=== PATIENT | male | born 1980 | race Two or more races ===

== ENCOUNTER 2017-04-15 22:56 | Emergency (ER) | payer MEDICAID ==
[2017-04-15 23:20] VITALS: BP 145/89
--- NOTE | 2017-04-15 23:39 | EDM.PDOC ---
[id number] Complaint: LEFT LEG CELLULITIS / ON ANTIBIOTICS Time Seen by Provider: 04/15/17 23:33 Source of Information: Reports: Patient History Limitations: Reports: No Limitations - History of Present Illness INITIAL COMMENTS - FREE TEXT/NARRATIVE: pt was seen at urgent care yesterday and he was placed on sulfa. Pt is concernd because he is not better. Onset: Gradual Duration: Day(s):, Getting Worse Location: Reports: Lower Extremity, Left Associated Symptoms: Reports: Fever/Chills, Other ( increased pain in the groin. ) Left Groin Pain Score (Numeric/FACES): 7 - Related Data Allergies Allergy/AdvReac Type Severity Reaction Status Date / Time No Known Allergies Allergy Verified 05/07/14 21:00 Home Meds: Home Meds Albuterol Sulfate [Albuterol Sulfate HFA] 1 - 2 puff IH Q4H PRN 05/07/14 [ History] Omeprazole [Prilosec] 20 mg PO DAILY 05/07/14 [History] Sulfamethoxazole/Trimethoprim [Sulfamethoxazole-Tmp Ds Tablet] 1 tab PO BID [History] Past Medical History HEENT History: Reports: Other (See Below) Other HEENT History: hx ear infections Respiratory History: Reports: Asthma Gastrointestinal History: Reports: GERD Psychiatric History: Reports: Anxiety Dermatologic History: Reports: Cellulitis - Past Surgical History GI Surgical History: Reports: None Social & Family History - Tobacco Use Smoking Status *Q: Never Smoker Years of Tobacco use: 20 - Caffeine Use Caffeine Use: Reports: Soda - Alcohol Use Days Per Week of Alcohol Use: 0 - Recreational Drug Use Recreational Drug Use: No Drug Use in Last 12 Months: No Recreational Drug Type: Reports: Marijuana/Hashish Recreational Drug Use Frequency: Not Used In Over 1 Year Review of Systems - Review of Systems Review Of Systems: See Below Constitutional: Reports: Fever Eyes: Reports: No Symptoms Ears: Reports: No Symptoms Nose: Reports: No Symptoms Mouth/Throat: Reports: No Symptoms Respiratory: Reports: No Symptoms Cardiovascular: Reports: No Symptoms GI/Abdominal: Reports: No Symptoms Genitourinary: Reports: No Symptoms Musculoskeletal: Reports: Other ( Pt has a abcess in the left groin. ) ED EXAM, GENERAL - Physical Exam Exam: See Below Free Text/Narrative:: pt was seen yesterday and placed on sulfa. He notes today that the area is larger and it is more uncomfortable. Exam Limited By: No Limitations General Appearance: Alert, Anxious Eye Exam: Right Eye: Papilledema Ears: Normal TMs Nose: Nasal Deformity Throat/Mouth: Normal Inspection Head: Atraumatic Neck: Normal Inspection Respiratory/Chest: No Respiratory Distress Cardiovascular: Regular Rate, Rhythm GI/Abdominal: Soft, Non-Tender (Male) Exam: Deferred Extremities: Other (pt has a large red area which is indurated and firm in the center. He is not improving and he is now running a fever. He feels the redness has spread alot. ) Neurological: Alert, Oriented Course - Vital Signs Last Recorded V/S: Last Vital Signs Temp 37.9 C 04/15/17 23:17 Pulse 88 04/15/17 23:17 Resp 18 04/15/17 23:17 BP 145/89 H 04/15/17 23:17 Pulse Ox 96 04/15/17 23:17 - Orders/Labs/Meds Orders: Active Orders 24 hr Category Date Time Status Saline Lock Insert [OM.PC] Routine Oth 04/15/17 23:51 Ordered Meds: Medications Discontinued Medications Generic Name Dose Route Start Last Admin Trade Name Freq PRN Reason Stop Dose Admin Hydrocodone Bitart/Acetaminophen 1 tab 04/15/17 23:50 04/16/17 00:13 [place] 325-5 Mg PO 04/15/17 23:51 1 tab ONETIME ONE Administration Ceftriaxone Sodium 1 gm/ 50 mls @ 100 mls/hr 04/15/17 23:50 04/16/17 00:12 Sodium Chloride IV 04/16/17 00:19 100 mls/hr ONETIME ONE Administration Sodium Chloride 10 ml 04/15/17 23:51 04/16/17 00:13 Saline Flush FLUSH 10 ml ASDIRECTED PRN Administration Keep Vein Open - Re-Assessments/Exams Free Text/Narrative Re-Assessment/Exam: 04/15/17 23:49 pt was given rocepen 1 gm iv. and norco 5/325 po. Departure - Departure Time of Disposition: 23:20 Disposition: Home, Self-Care 01 Condition: Fair Clinical Impression: Groin abscess - Discharge Information Instructions: Cellulitis, Adult Referrals: PCP,None [Primary Care Provider] - Forms: ED Department Discharge Care Plan Goals: tub soak or moist warm packs to the site., cont sulfa, Npo after midnight. rtc at 7 thirty tomorrow for I and D of the abcess. paradise # 4 - My Orders Last 24 Hours: My Active Orders 04/15/17 23:51 Saline Lock Insert [OM.PC] Routine - Assessment/Plan Last 24 Hours: My Active Orders 04/15/17 23:51 Saline Lock Insert [OM.PC] Routine
[2017-04-15] MEDS ORDERED: cefTRIAXone 1 GM in Sodium Chloride 0.9% 50 ML IV ONE (23:50)
[2017-04-15] MEDS ORDERED: Acetaminophen/HYDROcodone 325-5 MG Tab PO ONE (23:50)
[2017-04-15] MEDS ORDERED: Sodium Chloride 0.9% 10 ML Syringe FLUSH PRN (23:51)
== END 2017-04-16 00:44 | disposition home or self-care (01) ==
LOC: JP.ED 22:56
DX: L02.214 Cutaneous abscess of groin (principal); J45.909 Unspecified asthma, uncomplicated; K21.9 Gastro-esophageal reflux disease without esophagitis; F41.9 Anxiety disorder, unspecified; Z79.899 Other long term (current) drug therapy; L73.2 Hidradenitis suppurativa
CPT/HCPCS: 10061; 87070; 87075; 87077; 87186; 87205; 96365; 99283; A9270; J0696; J2250; J2704; J3010; J7030; J7050; J7120; S0077

== ENCOUNTER → 2017-04-16 | Day surgery (SDC) | payer MEDICAID ==
[~2017-04-16] MED LIST: Bupivacaine 0.5% 50 ML MDV ONE; Clindamycin Phosphate 900 MG in Sodium Chloride 0.9% 100 ML IV ONE; Lactated Ringers 1,000 ML ONE; Lidocaine 1% with EPINEPHrine 1:100,000 50 ML MDV ONE; Midazolam 1 MG/ML 2 ML SDV ONE; Propofol 200 MG/20 ML SDV ONE; fentaNYL 100 MCG/2 ML SDV ONE
[2017-04-16 10:34] VITALS: BP 119/77
--- NOTE | 2017-04-18 07:50 | OR ---
DATE OF PROCEDURE: 04/16/2017 PREOPERATIVE DIAGNOSIS: Left groin abscess x2, secondary to hidradenitis suppurativa. POSTOPERATIVE DIAGNOSIS: Left groin abscess x2, secondary to hidradenitis suppurativa. PROCEDURE: Incision and drainage of 2 left groin abscesses. SURGEON: Naresh Zamorano MD ANESTHESIA: IV anesthesia with monitored anesthesia care. INDICATION: This 36-year-old male has developed cellulitis in his left groin. He was seen in the clinic a few days ago. He was started on antibiotics. He came into the emergency room very late last night and saw Dr. Babin, who noted masses in the left groin consistent with abscesses and referred him to me this morning for incision and drainage of these. I counseled him for incision and drainage of 2 left groin abscesses, which were fairly deep, including risks and alternatives, and he gave his informed consent to proceed. DESCRIPTION OF PROCEDURE: After adequate IV anesthesia was obtained, the patient was placed in a frog-leg position. His left upper medial thigh and groin were prepped and draped in the usual sterile fashion. This was all consistent with hidradenitis suppurativa. A time-out was held. Lidocaine 1% with epinephrine in a 50:50 mix with 0.5% Marcaine was infiltrated about the 2 indurated areas consistent with abscesses. The larger one was opened first. We obtained purulent material, which was sent for Gram stain and culture. An elliptical incision was made at this point. The incision was cleaned. The more anterior one was then opened. We did not encounter any purulent material. This area was clean. They were both irrigated with saline and then packed with iodoform gauze. A sterile dressing was applied. He tolerated the procedure well and was brought from the operating room in good condition. Naresh Zamorano MD /[id number] [facility]
== END ==
LOC: JP.SDS 06:53
PROVIDERS: ATTEND Surgery
DX: L02.214 Cutaneous abscess of groin (principal); L73.2 Hidradenitis suppurativa
CPT/HCPCS: 10061; 87070; 87075; 87205; J2250; J2704; J3010; J7030; J7120; 87077; 87186; S0077

== ENCOUNTER 2017-05-20 00:09 | Emergency (ER) | payer MEDICAID ==
[2017-05-20] MEDS ORDERED: Sodium Chloride 0.9% 10 ML Syringe FLUSH PRN (00:48)
[2017-05-20] MEDS ORDERED: HYDROmorphone 1 MG/ML Syringe IVPUSH ONE (00:48)
[2017-05-20] MEDS ORDERED: Sodium Chloride 0.9% 1,000 ML IV STA (00:48)
[2017-05-20] MEDS ORDERED: Ondansetron 4 MG/2 ML SDV IVPUSH ONE (00:48)
--- NOTE | 2017-05-20 00:52 | EDM.PDOC ---
ED HPI GENERAL MEDICAL PROBLEM - General Chief Complaint: Abdominal Pain Stated Complaint: CHEST PAIN Time Seen by Provider: 05/20/17 00:43 Source of Information: Reports: Patient, RN Notes Reviewed History Limitations: Reports: No Limitations - History of Present Illness INITIAL COMMENTS - FREE TEXT/NARRATIVE: 36-year-old gentleman presents emergency department today with sudden onset of right upper quadrant abdominal pain, he states he was asleep the pain awoke him up suddenly about an hour prior any sharp stabbing in nature, no nausea no fevers no history of abdominal surgeries Upper Abdomen Pain Score (Numeric/FACES): 8 - Related Data Allergies Allergy/AdvReac Type Severity Reaction Status Date / Time No Known Allergies Allergy Verified 05/20/17 00:18 Home Meds: Home Meds Albuterol Sulfate [Albuterol Sulfate HFA] 1 - 2 puff IH Q4H PRN 05/07/14 [ History] Omeprazole [Prilosec] 20 mg PO DAILY 05/07/14 [History] Past Medical History HEENT History: Reports: Other (See Below) Other HEENT History: hx ear infections Respiratory History: Reports: Asthma Gastrointestinal History: Reports: GERD Musculoskeletal History: Reports: Fracture Other Musculoskeletal History: r wrist fx Psychiatric History: Reports: Anxiety Dermatologic History: Reports: Cellulitis - Infectious Disease History Infectious Disease History: Reports: C-Difficile - Past Surgical History GI Surgical History: Reports: None Social & Family History - Tobacco Use Smoking Status *Q: Former Smoker Years of Tobacco use: 21 Packs/Tins Daily: 1 Used Tobacco, but Quit: Yes Month Tobacco Last Used: February Second Hand Smoke Exposure: No - Caffeine Use Caffeine Use: Reports: Soda - Alcohol Use Days Per Week of Alcohol Use: 0 - Recreational Drug Use Recreational Drug Use: No Drug Use in Last 12 Months: No Recreational Drug Type: Reports: Marijuana/Hashish Recreational Drug Use Frequency: Not Used In Over 1 Year ED ROS GENERAL - Review of Systems Review Of Systems: See Below Constitutional: Denies: Fever, Chills HEENT: Reports: No Symptoms Respiratory: Reports: No Symptoms Cardiovascular: Reports: No Symptoms GI/Abdominal: Reports: Abdominal Pain, Flatus. Denies: Nausea, Vomiting : Reports: No Symptoms Musculoskeletal: Reports: No Symptoms Skin: Reports: No Symptoms Neurological: Reports: No Symptoms ED EXAM, GI/ABD - Physical Exam Exam: See Below Exam Limited By: No Limitations General Appearance: Alert, Mild Distress Eyes: Bilateral: Normal Appearance Head: Atraumatic, Normocephalic Neck: Normal Inspection, Supple, Non-Tender, Full Range of Motion Respiratory/Chest: No Respiratory Distress, Lungs Clear, Normal Breath Sounds, No Accessory Muscle Use Cardiovascular: Regular Rate, Rhythm, No Murmur GI/Abdominal Exam: Soft, Tender (Right upper quadrant). No: Guarding, Rigid, Rebound Extremities: Normal Inspection, No Pedal Edema Neurological: Alert, Oriented, CN II-XII Intact, Normal Cognition Course - Vital Signs Last Recorded V/S: Last Vital Signs Temp 98.5 F 05/20/17 00:26 Pulse 83 05/20/17 00:26 Resp 20 05/20/17 00:26 BP 146/100 H 05/20/17 00:26 Pulse Ox 97 05/20/17 00:26 - Orders/Labs/Meds Orders: Active Orders 24 hr Category Date Time Status Peripheral IV Care [RC] . DIRECTED Care 05/20/17 00:49 Active Abdomen Pelvis w Cont [CT] Urgent Exams 05/20/17 00:48 Taken Sodium Chloride 0.9% [Normal Saline] 1,000 ml Med 05/20/17 00:48 Active IV .BOLUS Sodium Chloride 0.9% [Saline Flush] Med 05/20/17 00:48 Active 10 ml FLUSH ASDIRECTED PRN ED Antiemetic Medication Reflex [OM.PC] Click to Edit Oth 05/20/17 00:48 Ordered ED Pain Medications Reflex [OM.PC] Click to Edit Oth 05/20/17 00:48 Ordered Peripheral IV Insertion Adult [OM.PC] Urgent Oth 05/20/17 00:48 Ordered Medication Orders Sodium Chloride (Normal Saline) 1,000 mls @ 500 mls/hr IV .BOLUS STA Stop: 05/20/17 02:47 Last Admin: 05/20/17 00:59 Dose: 500 mls/hr Sodium Chloride (Saline Flush) 10 ml FLUSH ASDIRECTED PRN PRN Reason: Keep Vein Open Last Admin: 05/20/17 01:04 Dose: 10 ml Labs: Laboratory Tests 05/20/17 05/20/17 Range/Units 00:58 00:58 WBC 7.8 (4.5-11.0) K/uL RBC 5.57 (4.30-5.90) M/uL Hgb 16.2 H (12.0-15.0) g/dL Hct 45.9 (40.0-54.0) % MCV 82 (80-98) fL MCH 29 (27-31) pg MCHC 35 (32-36) % Plt Count 241 (150-400) K/uL Neut % (Auto) 50 (36-66) % Lymph % (Auto) 34 (24-44) % Nuckolls % (Auto) 10 H (2-6) % Eos % (Auto) 5 H (2-4) % Baso % (Auto) 1 (0-1) % Sodium 140 (140-148) mmol/L Potassium 4.0 (3.6-5.2) mmol/L Chloride 104 (100-108) mmol/L Carbon Dioxide 26 (21-32) mmol/L Anion Gap 10.5 (5.0-14.0) mmol/L BUN 19 H (7-18) mg/dL Creatinine 0.9 (0.8-1.3) mg/dL Est Cr Clr Drug Dosing 114.56 mL/min Estimated GFR (MDRD) > 60 (>60) Glucose 113 H (74-106) mg/dL Calcium 9.4 (8.5-10.1) mg/dL Total Bilirubin 0.4 (0.2-1.0) mg/dL AST 21 (15-37) U/L ALT 39 (12-78) U/L Alkaline Phosphatase 106 (46-116) U/L Troponin I < 0.017 (0.000-0.056) ng/mL Total Protein 8.6 H (6.4-8.2) g/dL Albumin 4.0 (3.4-5.0) g/dL Globulin 4.6 H (2.3-3.5) g/dL Albumin/Globulin Ratio 0.9 L (1.2-2.2) Lipase 146 (73-393) U/L Meds: Medications Generic Name Dose Route Start Last Admin Trade Name Freq PRN Reason Stop Dose Admin Sodium Chloride 1,000 mls @ 500 mls/hr 05/20/17 00:48 05/20/17 00:59 Normal Saline IV 05/20/17 02:47 500 mls/hr .BOLUS STA Administration Sodium Chloride 10 ml 05/20/17 00:48 05/20/17 01:04 Saline Flush FLUSH 10 ml ASDIRECTED PRN Administration Keep Vein Open Discontinued Medications Generic Name Dose Route Start Last Admin Trade Name Phillipq PRN Reason Stop Dose Admin Hydromorphone HCl 1 mg 05/20/17 00:48 05/20/17 01:02 Dilaudid IVPUSH 05/20/17 00:49 1 mg .ONETIME ONE Administration Sodium Chloride 85 mls @ 4.5 mls/sec 05/20/17 00:59 05/20/17 01:28 Normal Saline IV 05/20/17 01:00 4.5 mls/sec ASDIRECTED STA Administration Iopamidol 150 ml 05/20/17 00:59 05/20/17 01:28 Isovue-300 (61%) IV 05/20/17 01:00 150 ml . DIRECTED STA Administration Ondansetron HCl 4 mg 05/20/17 00:48 05/20/17 01:01 Zofran IVPUSH 05/20/17 00:49 4 mg ONETIME ONE Administration Departure - Departure Time of Disposition: 02:37 Disposition: Home, Self-Care 01 Condition: Good Clinical Impression: Cholelithiasis Qualifiers: Cholelithiasis location: gallbladder Cholecystitis presence: without cholecystitis Biliary obstruction: without biliary obstruction Qualified Code(s) : K80.20 - Calculus of gallbladder without cholecystitis without obstruction - Discharge Information Referrals: PCP,None [Primary Care Provider] - Forms: ED Department Discharge Additional Instructions: Try and avoid fatty foods and stick to a bland diet, use hydrocodone as needed for pain control, please call the clinic on Tuesday for an appointment with Dr. Diaz - My Orders Last 24 Hours: My Active Orders 05/20/17 00:48 Abdomen Pelvis w Cont [CT] Urgent Sodium Chloride 0.9% [Normal Saline] 1,000 ml IV .BOLUS Sodium Chloride 0.9% [Saline Flush] 10 ml FLUSH ASDIRECTED PRN ED Antiemetic Medication Reflex [OM.PC] Click to Edit ED Pain Medications Reflex [OM.PC] Click to Edit Peripheral IV Insertion Adult [OM.PC] Urgent 05/20/17 00:49 Peripheral IV Care [RC] . DIRECTED - Assessment/Plan Last 24 Hours: My Active Orders 05/20/17 00:48 Abdomen Pelvis w Cont [CT] Urgent Sodium Chloride 0.9% [Normal Saline] 1,000 ml IV .BOLUS Sodium Chloride 0.9% [Saline Flush] 10 ml FLUSH ASDIRECTED PRN ED Antiemetic Medication Reflex [OM.PC] Click to Edit ED Pain Medications Reflex [OM.PC] Click to Edit Peripheral IV Insertion Adult [OM.PC] Urgent 05/20/17 00:49 Peripheral IV Care [RC] . DIRECTED Plan: Assessment Acuity = acute Site and laterality = cholelithiasis Etiology = unclear etiology Manifestations = abdominal pain Location of injury = Home Lab values = CBC and CMP unremarkable CT scan shows multiple stones in the gallbladder no cholecystitis noted Plan I reviewed lab work and CT scan results with him he had good improvement with 1 mg Dilaudid he'll be discharged home with hydrocodone for pain control he is going to follow-up with general surgery on Tuesday Patient was in agreement with the plan all questions were answered, they were instructed to return to the emergency department or call for worsening symptoms. This note was dictated using [employer] voice recognition software please call with any questions.
[2017-05-20] MEDS: Iopamidol 612 MG/ML 150 ML Bottle IV STA (01:28)
[2017-05-20 02:53] VITALS: BP 144/102
== END 2017-05-20 02:53 | disposition home or self-care (01) ==
LOC: JP.ED 00:09
DX: K80.20 Calculus of gallbladder without cholecystitis without obstruction (principal); J45.909 Unspecified asthma, uncomplicated; K21.9 Gastro-esophageal reflux disease without esophagitis; F41.9 Anxiety disorder, unspecified; Z79.899 Other long term (current) drug therapy; Z87.891 Personal history of nicotine dependence
CPT/HCPCS: 36415; 74177; 80053; 83690; 84484; 85025; 96361; 96374; 96375; 99284; J1170; J2405; J7030; J7040; J7050

== ENCOUNTER 2017-06-03 09:00 | Day surgery (SDC) | payer MEDICAID ==
[~2017-06-03 09:00] MED LIST changes: -Clindamycin Phosphate 900 MG in Sodium Chloride 0.9% 100 ML IV ONE; -Lactated Ringers 1,000 ML ONE; -Midazolam 1 MG/ML 2 ML SDV ONE; -Propofol 200 MG/20 ML SDV ONE; -fentaNYL 100 MCG/2 ML SDV ONE
[2017-06-03] MEDS ORDERED: Rocuronium 50 MG/5 ML Vial ONE (09:30)
[2017-06-03] MEDS ORDERED: Propofol 200 MG/20 ML SDV ONE (09:30)
[2017-06-03] MEDS ORDERED: Glycopyrrolate 0.2 MG/ML 5 ML MDV ONE (09:30)
[2017-06-03] MEDS ORDERED: Dexamethasone 4 MG/ML SDV ONE (09:30)
[2017-06-03] MEDS ORDERED: Succinylcholine 200 MG/10 ML MDV ONE (09:30)
[2017-06-03] MEDS ORDERED: Ondansetron 4 MG/2 ML SDV ONE (09:30)
[2017-06-03] MEDS ORDERED: Neostigmine Methylsulfate 1 MG/ML 5 ML Syringe ONE (09:30)
[2017-06-03] MEDS ORDERED: Sodium Chloride 0.9% 1,000 ML IV SCH (09:45)
[2017-06-03] MEDS ORDERED: ceFAZolin 2 GM in Sodium Chloride 0.9% 100 ML IV ONE (10:45)
[2017-06-03] MEDS ORDERED: metroNIDAZOLE/Normal Saline 500 MG in Premix Bag 1 BAG IV ONE (10:45)
[2017-06-03] MEDS: ceFAZolin 2 GM in Sodium Chloride 0.9% 50 ML IV ONE ×2 (11:15→13:11)
[2017-06-03] MEDS ORDERED: Lidocaine 1% 50 ML MDV ONE (11:30)
[2017-06-03] MEDS ORDERED: Lidocaine 1% with EPINEPHrine 1:100,000 50 ML MDV ONE (11:34)
[2017-06-03] MEDS ORDERED: diphenhydrAMINE 50 MG/ML SDV IVPUSH PRN (12:16)
[2017-06-03] MEDS ORDERED: Zolpidem 5 MG Tab PO PRN (12:16)
[2017-06-03] MEDS ORDERED: Benzocaine/Cetylpyridinium/Menthol Lozenge MUCMEM PRN (12:16)
[2017-06-03] MEDS ORDERED: Docusate Sodium 100 MG Cap PO PRN (12:16)
[2017-06-03] MEDS ORDERED: Promethazine 25 MG/ML SDV IM PRN (12:16)
[2017-06-03] MEDS ORDERED: hydrOXYzine HCl 100 MG/2 ML SDV IM PRN (12:16)
[2017-06-03] MEDS ORDERED: Bisacodyl 5 MG Tab PO PRN (12:16)
[2017-06-03] MEDS ORDERED: Ketorolac 60 MG/2 ML SDV ONE (12:20)
[2017-06-03] MEDS ORDERED: Morphine 2 MG/ML Syringe IVPUSH PRN (12:21)
[2017-06-03] MEDS: Acetaminophen/oxyCODONE 325-10 MG Tab PO PRN ×3 (14:59→23:19)
[2017-06-04] MEDS ORDERED: Lidocaine 2% Jelly 10 ML Urojet MUCMEM ONE ×2 (02:12→10:00)
[2017-06-04] MEDS: Acetaminophen/oxyCODONE 325-10 MG Tab PO PRN ×2 (03:38→09:25)
[2017-06-04 07:31] VITALS: BP 142/88
[2017-06-04] MEDS ORDERED: Ondansetron 4 MG Tab.DIS PO PRN (09:20)
--- NOTE | 2017-06-06 09:11 | OR ---
DATE OF PROCEDURE: 06/03/2017 PROCEDURE: Laparoscopic cholecystectomy. PREOPERATIVE DIAGNOSIS: Cholelithiasis and cholecystitis. POSTOPERATIVE DIAGNOSIS: Cholelithiasis and cholecystitis. RISKS: Risks, benefits, alternatives including damage to infection bleeding and injury to common bile duct, cystic duct, small bowel, bladder, and other risks were explained, they understand and wished to proceed. PROCEDURE IN DETAIL: The patient was placed in supine position. A supraumbilical curvilinear incision was made. A Veress needle was used to enter the abdomen without abnormality. A drop test was performed without abnormality. This was followed by an Optiview trocar. No evidence of enterotomy or injury was noted during entry. Two additional 5 mm ports and a 10 mm port were entered under direct visualization. The gallbladder was retracted cephalad. The infundibulum was retracted inferolaterally. A "clear view" of the gallbladder was obtained with a single pulsatile structure in the gallbladder and a single nonpulsatile structure in the gallbladder. The cystic duct and respective artery were clipped x3 and subsequently transected. The gallbladder was removed without any difficulty. The bed was reinspected twice. No abnormal bleeding was noted. The wounds were thoroughly irrigated and closed with 3-0 Vicryl and 4-0 Vicryl interrupted running fashion. The patient tolerated the procedure well. Tomas Diaz MD /[id number]
== END 2017-06-04 10:18 | disposition home or self-care (01) ==
LOC: JP.SDS 09:00 → JP.2SS 12:16 → JP.SDS 06-04 10:18
PROVIDERS: ATTEND Surgery
DX: K80.10 Calculus of gallbladder with chronic cholecystitis without obstruction (principal); J45.909 Unspecified asthma, uncomplicated; J30.2 Other seasonal allergic rhinitis; Z87.891 Personal history of nicotine dependence
CPT/HCPCS: 36415; 47562; 80053; 85027; A9270; J0330; J0690; J1100; J1885; J2270; J2405; J2704; J2710; J3010; J3410; J7040; J7050; 88304

== ENCOUNTER 2017-07-08 06:53 | Day surgery (SDC) | payer MEDICAID ==
[2017-07-08] MEDS ORDERED: Lidocaine 1% with EPINEPHrine 1:100,000 50 ML MDV ONE (06:58)
[2017-07-08] MEDS ORDERED: Bupivacaine 0.5% 50 ML MDV ONE (06:58)
[2017-07-08] MEDS ORDERED: Propofol 200 MG/20 ML SDV ONE ×3 (07:01→08:58)
[2017-07-08] MEDS ORDERED: Midazolam 1 MG/ML 2 ML SDV ONE ×2 (07:01→08:34)
[2017-07-08] MEDS ORDERED: fentaNYL 100 MCG/2 ML SDV ONE (07:01)
[2017-07-08] MEDS ORDERED: ceFAZolin 2 GM in Sodium Chloride 0.9% 50 ML IV ONE (07:30)
[2017-07-08] MEDS ORDERED: Dextrose 5%-Lactated Ringers 1,000 ML IV SCH (07:30)
[2017-07-08] MEDS ORDERED: Acetaminophen/HYDROcodone 325-5 MG Tab PO ONE (09:55)
[2017-07-08] MEDS ORDERED: Ondansetron 4 MG Tab.DIS PO ONE (10:45)
[2017-07-08 11:16] VITALS: BP 136/93
--- NOTE | 2017-07-08 12:25 | OR ---
DATE OF PROCEDURE: 07/08/2017 PREOPERATIVE DIAGNOSIS: Reducible left inguinal hernia. POSTOPERATIVE DIAGNOSIS: Reducible indirect left inguinal hernia. PROCEDURE: Repair of reducible indirect left inguinal hernia with a Medium mesh plug and patch manufactured by [employer]. SURGEON: Naresh Zamorano MD. ANESTHESIA: IV anesthesia with monitored anesthesia care. INDICATION: This 37-year-old white male was referred for repair of a left inguinal hernia. He complained of left hip pain. With examination, he was found to have a hernia. He denied predisposing factors for hernia formation. No signs or symptoms of incarceration or obstruction. This is considered to be a fairly small hernia and it is reducible. I counseled him for repair of it with a mesh plug and patch including risks and alternatives , and he gave his informed consent to proceed. DESCRIPTION OF PROCEDURE: After adequate IV anesthesia was obtained, the patient's lower abdomen, groin, and genitalia were prepped and draped in the usual sterile fashion. Time-out was held. Lidocaine 1% with epinephrine in a 50:50 mix with 0.5% Marcaine was infiltrated about the left groin. A left groin incision was made 2 cm superior and medial to the inguinal ligament. This was carried deep using Bovie cautery to external oblique. The external oblique was opened parallel to the course of its fibers from the internal to the external ring. The spermatic cord was mobilized and a [place] drain was placed about it. The floor appeared to be intact. The cremasteric fibers were divided longitudinally to reveal an indirect hernia, and a cord lipoma. The cord lipoma was excised and discarded. The hernia defect was dissected free and repaired with a Medium Ventralex mesh plug and patch manufactured by [employer]. The plug was placed down through the defect, underneath the fascia, and anchored to the undersides of the fascia with horizontal mattress stitches of 2-0 Vicryl. The onlay patch was obtained, cut to appropriate length , and placed over the inguinal floor. It was anchored to itself around the spermatic cord with a horizontal mattress stitch of 2-0 Vicryl. The ilioinguinal nerve was divided. The external oblique was closed over the inguinal floor, spermatic cord and mesh with a running stitch of 2-0 Vicryl. Interrupted 3-0 Vicryl stitch were placed to approximate the Paul's fascia and 4-0 Vicryl using a subcuticular stitch was placed to approximate the skin. Dermabond was applied. The patient tolerated the procedure well and was brought to the recovery room in a good condition. Naresh Zamorano MD /[id number]
== END 2017-07-08 10:45 | disposition home or self-care (01) ==
LOC: JP.SDS 06:53
PROVIDERS: ATTEND Surgery
DX: K40.90 Unilateral inguinal hernia, without obstruction or gangrene, not specified as recurrent (principal); J45.909 Unspecified asthma, uncomplicated; Z87.891 Personal history of nicotine dependence; E66.9 Obesity, unspecified; Z68.25 Body mass index [BMI] 25.0-25.9, adult
CPT/HCPCS: 49505; A9270; C1781; J0690; J2250; J2704; J3010; J7042; J7050

== ENCOUNTER 2017-08-31 21:58 | Emergency (ER) | payer MEDICAID ==
[2017-08-31 22:08] VITALS: BP 141/93
[2017-08-31] MEDS ORDERED: Aluminum Hydroxide/Magnesium Hydroxide/Simethicone Susp 30 ML Cup PO ONE (22:45)
[2017-08-31] MEDS ORDERED: Ketorolac 60 MG/2 ML SDV IM ONE (22:45)
--- NOTE | 2017-08-31 23:17 | EDM.PDOC ---
ED HPI GENERAL MEDICAL PROBLEM - General Chief Complaint: Upper Extremity Injury/Pain Stated Complaint: R SHOULDER BLADE PAIN / ABDOMINAL PAIN Time Seen by Provider: 08/31/17 22:20 Source of Information: Reports: Patient History Limitations: Reports: No Limitations - History of Present Illness INITIAL COMMENTS - FREE TEXT/NARRATIVE: 37-year-old male in for 2 reasons tonight. The first is that he developed some epigastric discomfort earlier this evening after eating, it is getting better but while he is here he wanted to talk about a persistent pain in his posterior right shoulder that has been present for 3 years. He does not have a primary care provider. His gallbladder was removed 2 months ago, he has no fevers or chills, or system nausea or vomiting or diarrhea. He is moving his neck side to side somewhat hesitantly due to the pain, otherwise he seems comfortable. Location: Reports: Abdomen, Back Severity: Mild Worsens with: Reports: Movement Right Shoulder Pain Score (Numeric/FACES): 4 - Related Data Allergies Allergy/AdvReac Type Severity Reaction Status Date / Time No Known Allergies Allergy Verified 07/08/17 07:12 Home Meds: Home Meds Albuterol Sulfate [Albuterol Sulfate HFA] 1 - 2 puff IH Q4H PRN 05/07/14 [ History] Omeprazole [Prilosec] 20 mg PO DAILY 05/07/14 [History] Loratadine [Claritin] 10 mg PO DAILY 06/01/17 [History] Escitalopram [Lexapro] 10 mg PO DAILY 08/31/17 [History] Past Medical History HEENT History: Reports: Allergic Rhinitis Other HEENT History: hx ear infections Respiratory History: Reports: Asthma Gastrointestinal History: Reports: GERD Musculoskeletal History: Reports: Back Pain, Chronic, Fracture Other Musculoskeletal History: r wrist fx Neurological History: Reports: Migraines Psychiatric History: Reports: Anxiety Endocrine/Metabolic History: Reports: Obesity/BMI 30+ Dermatologic History: Reports: Cellulitis, Other (See Below) Other Dermatologic History: MRSA from cellulitis - Infectious Disease History Infectious Disease History: Reports: Chicken Pox, MRSA - Past Surgical History GI Surgical History: Reports: Cholecystectomy Social & Family History - Tobacco Use Smoking Status *Q: Never Smoker Years of Tobacco use: 20 Packs/Tins Daily: 1.5 Used Tobacco, but Quit: Yes Month Tobacco Last Used: 2014 Second Hand Smoke Exposure: No - Caffeine Use Caffeine Use: Reports: Soda - Alcohol Use Days Per Week of Alcohol Use: 0 - Recreational Drug Use Recreational Drug Use: No Drug Use in Last 12 Months: No Recreational Drug Type: Reports: Marijuana/Hashish Recreational Drug Use Frequency: Not Used In Over 1 Year Review of Systems - Review of Systems Review Of Systems: See Below Constitutional: Denies: Fever Eyes: Reports: No Symptoms Respiratory: Denies: Shortness of Breath, Cough Cardiovascular: Denies: Chest Pain GI/Abdominal: Reports: Abdominal Pain. Denies: Diarrhea, Nausea, Vomiting Musculoskeletal: Reports: Neck Pain, Shoulder Pain, Back Pain Skin: Reports: No Symptoms Neurological: Denies: Headache, Paresthesia Psychiatric: Reports: No Symptoms ED EXAM, GENERAL - Physical Exam Exam: See Below Exam Limited By: No Limitations General Appearance: Alert, No Apparent Distress Eye Exam: Bilateral Eye: Normal Inspection (No jaundice) Head: Atraumatic Neck: Normal Inspection, Limited Range of Motion (Has a pulling sensation in his right rhomboid area with rotation of the neck) Respiratory/Chest: No Respiratory Distress, Lungs Clear Cardiovascular: Regular Rate, Rhythm GI/Abdominal: Soft, Tender (A small amount of discomfort with palpation across the upper abdomen but no guarding or rebound) Back Exam: Paraspinal Tenderness (He has point tenderness just medial to the right scapula, no spinal tenderness) Neurological: Alert, Oriented Psychiatric: Normal Affect, Normal Mood Skin Exam: Warm, Dry Course - Vital Signs Last Recorded V/S: Last Vital Signs Temp 96.5 F 08/31/17 22:15 Pulse 81 08/31/17 22:15 Resp 14 08/31/17 22:15 BP 141/93 H 08/31/17 22:15 Pulse Ox 100 08/31/17 22:15 - Orders/Labs/Meds Meds: Medications Discontinued Medications Generic Name Dose Route Start Last Admin Trade Name Phillipq PRN Reason Stop Dose Admin Al Hydroxide/Mg Hydroxide 30 ml 08/31/17 22:45 08/31/17 22:50 Mag-Al Plus PO 08/31/17 22:46 30 ml ONETIME ONE Administration Ketorolac Tromethamine 60 mg 08/31/17 22:45 08/31/17 22:50 Toradol IM 08/31/17 22:46 60 mg ONETIME ONE Administration - Re-Assessments/Exams Free Text/Narrative Re-Assessment/Exam: 08/31/17 23:16 Patient was given 30 mL of oral Maalox and 60 mg of IM Toradol. Posterior shoulder and back pain had improved with the Toradol shot but did not resolve. He was still moving somewhat gingerly. The abdominal pain was basically gone. I' ll discharge him with some Flexeril to use for muscle relaxation on an as- needed basis, but he needs to establish a primary care provider so he can get a physical therapy consultation for his rhomboid pain since it is persistent and recurring for 3 years, and may need an EGD to assess for hiatal hernia or gastritis. He should continue his Prilosec. Departure - Departure Time of Disposition: 23:26 Disposition: Home, Self-Care 01 Condition: Good Clinical Impression: Pain of rhomboid muscle Acid reflux Qualifiers: Esophagitis presence: esophagitis presence not specified Qualified Code(s): K21.9 - Gastro-esophageal reflux disease without esophagitis - Discharge Information Instructions: Thoracic Strain Referrals: PCP,None [Primary Care Provider] - Forms: ED Department Discharge Care Plan Goals: Increase activity as tolerated, use muscle relaxers as needed especially when resting and establish a primary care provider to discuss physical therapy consultation for chronic posterior shoulder pain and also discuss possibly needing a stomach evaluation for hiatal hernia or gastritis.
== END 2017-08-31 23:27 | disposition home or self-care (01) ==
LOC: JP.ED 21:58
DX: K21.9 Gastro-esophageal reflux disease without esophagitis (principal); M79.1 Myalgia; J45.909 Unspecified asthma, uncomplicated; F41.9 Anxiety disorder, unspecified; Z87.891 Personal history of nicotine dependence; Z79.899 Other long term (current) drug therapy
CPT/HCPCS: 96372; 99284; A9270; J1885

== ENCOUNTER 2017-10-22 14:02 | Emergency (ER) | payer MEDICAID ==
[2017-10-22 14:12] VITALS: BP 132/91
[2017-10-22] MEDS ORDERED: LORazepam 0.5 MG Tab PO ONE (14:32)
--- NOTE | 2017-10-22 14:38 | EDM.PDOCBH ---
ED HPI GENERAL MEDICAL PROBLEM - General Chief Complaint: Behavioral/Psych Stated Complaint: ANXIETY? CHEST FEELS FUNNY/NO SLEEP Time Seen by Provider: 10/22/17 14:20 Source of Information: Reports: Patient, RN History Limitations: Reports: No Limitations - History of Present Illness INITIAL COMMENTS - FREE TEXT/NARRATIVE: 37 yo male presents with a couple weeks of progressive anxiety. Is not able to sleep much for the past few days. He occasionally feels his heart skip a beat. Feels like he's not getting a full breath. Has been to the clinic for this and they have had him take some written tests working him up for anxiety/depression , but they have not yet started him on any meds. Denies any changes in his life that might have ppt'd this problem. Has not lost any weight. In the past had Paxil that made him worse, and Lexapro was ineffective. Onset: Gradual Onset Date: 10/05/17 (approximate date) Duration: Week(s): Location: Reports: Generalized Quality: Reports: Other (no pain) Severity: Moderate Improves with: Reports: None Worsens with: Reports: Other (? time) Context: Reports: Other (unknown ) Associated Symptoms: Reports: Other (insomnia, heart palpitations, mild SOB, restlessness) Treatments [employer]: Reports: Other (see below) (Tried Paxil, Lexapro in the remote past without benefit) - Related Data Allergies Allergy/AdvReac Type Severity Reaction Status Date / Time No Known Allergies Allergy Verified 10/22/17 14:12 Home Meds: Home Meds Omeprazole [Prilosec] 20 mg PO DAILY 05/07/14 [History] Past Medical History HEENT History: Reports: Allergic Rhinitis Other HEENT History: hx ear infections Respiratory History: Reports: Asthma Gastrointestinal History: Reports: GERD Musculoskeletal History: Reports: Back Pain, Chronic, Fracture Other Musculoskeletal History: r wrist fx Neurological History: Reports: Migraines Psychiatric History: Reports: Anxiety Endocrine/Metabolic History: Reports: Obesity/BMI 30+ Dermatologic History: Reports: Cellulitis, Other (See Below) Other Dermatologic History: MRSA from cellulitis - Infectious Disease History Infectious Disease History: Reports: Chicken Pox, MRSA - Past Surgical History GI Surgical History: Reports: Cholecystectomy, Hernia, Inguinal Social & Family History - Tobacco Use Smoking Status *Q: Unknown Ever Smoked Years of Tobacco use: 20 Packs/Tins Daily: 1.5 Used Tobacco, but Quit: Yes Month Tobacco Last Used: 2014 Second Hand Smoke Exposure: No - Caffeine Use Caffeine Use: Reports: Soda - Alcohol Use Days Per Week of Alcohol Use: 0 - Recreational Drug Use Recreational Drug Use: No Drug Use in Last 12 Months: No Recreational Drug Type: Reports: Marijuana/Hashish Recreational Drug Use Frequency: Not Used In Over 1 Year ED ROS GENERAL - Review of Systems Review Of Systems: See Below Constitutional: Reports: No Symptoms HEENT: Reports: No Symptoms Respiratory: Reports: Shortness of Breath (mild) Cardiovascular: Reports: Palpitations (of recent onset) Endocrine: Reports: No Symptoms GI/Abdominal: Reports: No Symptoms : Reports: No Symptoms Musculoskeletal: Reports: No Symptoms Skin: Reports: No Symptoms Neurological: Reports: No Symptoms Psychiatric: Reports: Anxiety. Denies: Homicidal Ideation, Suicidal Ideation ED EXAM, BEHAVIORAL HEALTH - Physical Exam Exam: See Below Exam Limited By: No Limitations General Appearance: Alert, Anxious, Mild Distress Eye Exam: Bilateral Eye: Normal Inspection Ears: Normal External Exam, Normal Canal, Hearing Grossly Normal, Normal TMs Nose: Normal Inspection, Normal Mucosa, No Blood Throat/Mouth: Normal Inspection, Normal Lips, Normal Oropharynx, Normal Voice, No Airway Compromise Head: Atraumatic, Normocephalic Neck: Normal Inspection, Supple, Non-Tender Respiratory/Chest: No Respiratory Distress, Lungs Clear, Normal Breath Sounds, No Accessory Muscle Use Cardiovascular: Regular Rate, Rhythm, Other (Occasional ectopic beat noted on auscultation.) GI/Abdominal: Soft, Non-Tender Extremities: Normal Inspection, Normal Range of Motion, Non-Tender, No Pedal Edema Neurological: Alert, Normal Mood/Affect, CN II-XII Intact, Normal Cognition, No Motor/Sensory Deficits, Oriented x 3 Psychiatric: Alert, Normal Cognition, Oriented, Restless Skin Exam: Warm, Dry, Intact, Normal color, No rash COURSE, BEHAVIORAL HEALTH COMP - Course Vital Signs: Last Vital Signs Temp 37.1 C 10/22/17 14:09 Pulse 95 10/22/17 14:09 Resp 14 10/22/17 14:09 BP 132/91 H 10/22/17 14:09 Pulse Ox 96 10/22/17 14:09 Orders, Labs, Meds: Active Orders 24 hr Category Date Time Status Cardiac Monitoring [RC] .As Directed Care 10/22/17 14:32 Active Laboratory Tests 10/22/17 10/22/17 10/22/17 Range/Units 14:43 14:45 14:45 Sodium 142 (140-148) mmol/L Potassium 4.2 (3.6-5.2) mmol/L Chloride 105 (100-108) mmol/L Carbon Dioxide 26 (21-32) mmol/L Anion Gap 11.1 (5.0-14.0) mmol/L BUN 25 H (7-18) mg/dL Creatinine 0.9 (0.8-1.3) mg/dL Est Cr Clr Drug Dosing 113.47 mL/min Estimated GFR (MDRD) > 60 (>60) Glucose 94 (74-106) mg/dL Calcium 9.5 (8.5-10.1) mg/dL Troponin I < 0.017 (0.000-0.056) ng/mL TSH, Ultra Sensitive 0.888 (0.358-3.740) uIU/mL Urine Opiates Screen Negative (NEGATIVE) Ur Oxycodone Screen Negative (NEGATIVE) Urine Methadone Screen Negative (NEGATIVE) Ur Propoxyphene Screen Negative (NEGATIVE) Ur Barbiturates Screen Negative (NEGATIVE) Ur Tricyclics Screen Positive H (NEGATIVE) Ur Phencyclidine Scrn Negative (NEGATIVE) Ur Amphetamine Screen Negative (NEGATIVE) U Methamphetamines Scrn Negative (NEGATIVE) Urine MDMA Screen Negative (NEGATIVE) U Benzodiazepines Scrn Negative (NEGATIVE) U Cocaine Metab Screen Negative (NEGATIVE) U Marijuana (THC) Screen Negative (NEGATIVE) Medications Discontinued Medications Generic Name Dose Route Start Last Admin Trade Name Radha PRN Reason Stop Dose Admin Lorazepam 0.5 mg 10/22/17 14:32 10/22/17 14:43 Ativan PO 10/22/17 14:33 0.5 mg ONETIME ONE Administration Lorazepam 1 mg 10/22/17 15:21 10/22/17 15:24 Ativan PO 10/22/17 15:22 1 mg ONETIME ONE Administration Re-Assessment/Re-Exam Date: 10/22/17 (He reports no change after 0.5 mg Ativan, is sleeping after an additional 1 mg po) Departure - Departure Time of Disposition: 16:15 Disposition: Home, Self-Care 01 Condition: Fair Clinical Impression: Anxiety - Discharge Information Referrals: PCP,None [Primary Care Provider] - Forms: ED Department Discharge - My Orders Last 24 Hours: My Active Orders 10/22/17 14:32 Cardiac Monitoring [RC] .As Directed - Assessment/Plan Last 24 Hours: My Active Orders 10/22/17 14:32 Cardiac Monitoring [RC] .As Directed
[2017-10-22] MEDS ORDERED: LORazepam 1 MG Tab PO ONE (15:21)
== END 2017-10-22 16:23 | disposition home or self-care (01) ==
LOC: JP.ED 14:02
DX: F41.9 Anxiety disorder, unspecified (principal); K21.9 Gastro-esophageal reflux disease without esophagitis; Z87.891 Personal history of nicotine dependence; Z79.899 Other long term (current) drug therapy
CPT/HCPCS: 36415; 80048; 80305; 84443; 84484; 99284; A9270

== ENCOUNTER 2020-03-24 08:19 | Emergency (ER) | payer MEDICAID ==
[2020-03-24 08:44] VITALS: BP 146/91; PULSE 97
[2020-03-24] MEDS ORDERED: Morphine 4 MG/ML Syringe IVPUSH PRN (09:02)
[2020-03-24] MEDS ORDERED: Aspirin 81 MG Tab.Chew PO ONE (09:02)
[2020-03-24] MEDS ORDERED: Ondansetron 4 MG Tab.DIS PO ONE (09:05)
--- NOTE | 2020-03-24 09:06 | EDM.PDOC ---
ED HPI GENERAL MEDICAL PROBLEM - General Chief Complaint: Upper Extremity Injury/Pain Stated Complaint: PAIN GOING DOWN LEFT SHOULDER Time Seen by Provider: 03/24/20 08:58 Source of Information: Reports: Patient, RN Notes Reviewed History Limitations: Reports: No Limitations - History of Present Illness INITIAL COMMENTS - FREE TEXT/NARRATIVE: 39-year-old gentleman presents emergency department a complaint of left arm pain he states the arm pain awoke him this morning presented the emergency department for further evaluation while in the emergency department he states he has had nausea and just recently developed some chest pain with shortness of breath he has no cardiac history no family history of cardiac issues he does use tobacco products - Related Data Allergies Allergy/AdvReac Type Severity Reaction Status Date / Time No Known Allergies Allergy Verified 03/24/20 08:32 Home Meds: Home Meds Omeprazole [Prilosec] 20 mg PO DAILY 05/07/14 [History] LORazepam [Ativan] 0.5 - 1 mg PO Q8H PRN #10 tab 10/22/17 [Rx] Mirtazapine [Remeron] 30 mg PO BEDTIME #15 tab 10/22/17 [Rx] Past Medical History HEENT History: Reports: Allergic Rhinitis Other HEENT History: hx ear infections Respiratory History: Reports: Asthma Gastrointestinal History: Reports: GERD Musculoskeletal History: Reports: Back Pain, Chronic, Fracture Other Musculoskeletal History: r wrist fx Neurological History: Reports: Migraines Psychiatric History: Reports: Anxiety Endocrine/Metabolic History: Reports: Obesity/BMI 30+ Dermatologic History: Reports: Cellulitis, Other (See Below) Other Dermatologic History: MRSA from cellulitis - Infectious Disease History Infectious Disease History: Reports: Chicken Pox, MRSA - Past Surgical History GI Surgical History: Reports: Cholecystectomy, Hernia, Inguinal Social & Family History - Tobacco Use Smoking Status *Q: Current Every Day Smoker Years of Tobacco use: 23 Packs/Tins Daily: 1 - Caffeine Use Caffeine Use: Reports: None - Recreational Drug Use Recreational Drug Use: No Review of Systems - Review of Systems Review Of Systems: See Below Constitutional: Reports: No Symptoms Mouth/Throat: Reports: No Symptoms Respiratory: Reports: Shortness of Breath Cardiovascular: Reports: Chest Pain GI/Abdominal: Reports: Nausea, Vomiting Musculoskeletal: Reports: Shoulder Pain ED EXAM, GENERAL - Physical Exam Exam: See Below Exam Limited By: No Limitations General Appearance: Alert, WD/WN, No Apparent Distress Respiratory/Chest: No Respiratory Distress, Lungs Clear, Normal Breath Sounds, No Accessory Muscle Use, Chest Non-Tender Cardiovascular: Regular Rate, Rhythm, No Murmur GI/Abdominal: Soft, Non-Tender Extremities: Normal Inspection, Normal Range of Motion, Non-Tender Course - Vital Signs Last Recorded V/S: Last Vital Signs Temp 95.1 F L 03/24/20 08:56 Pulse 97 03/24/20 08:56 Resp 20 03/24/20 08:56 BP 146/91 H 03/24/20 08:56 Pulse Ox 96 03/24/20 08:56 - Orders/Labs/Meds Orders: Active Orders 24 hr Category Date Time Status Cardiac Monitoring [RC] .As Directed Care 03/24/20 09:02 Active EKG Documentation Completion [RC] ASDIRECTED Care 03/24/20 09:03 Active Chest 2V [CR] Stat Exams 03/24/20 09:03 Taken Morphine Med 03/24/20 09:02 Active 4 mg IVPUSH Q10M PRN EKG 12 Lead [EK] Stat Ther 03/24/20 09:02 Ordered Medication Orders Morphine Sulfate (Morphine) 4 mg IVPUSH Q10M PRN PRN Reason: Chest Pain Stop: 03/25/20 09:03 Last Admin: 03/24/20 09:14 Dose: 4 mg Documented by: JAMAL Labs: Laboratory Tests 03/24/20 03/24/20 03/24/20 Range/Units 09:15 09:15 09:15 WBC 9.6 (4.5-11.0) K/uL RBC 5.29 (4.30-5.90) M/uL Hgb 16.0 H (12.0-15.0) g/dL Hct 46.1 (40.0-54.0) % MCV 87 (80-98) fL MCH 30 (27-31) pg MCHC 35 (32-36) % Plt Count 249 (150-400) K/uL Neut % (Auto) 63 (36-66) % Lymph % (Auto) 20 L (24-44) % Terrell % (Auto) 13 H (2-6) % Eos % (Auto) 4 (2-4) % Baso % (Auto) 1 (0-1) % Sodium 137 L (140-148) mmol/L Potassium 4.1 (3.6-5.2) mmol/L Chloride 104 (100-108) mmol/L Carbon Dioxide 23 (21-32) mmol/L Anion Gap 14.1 H (5.0-14.0) mmol/L BUN 18 (7-18) mg/dL Creatinine 0.9 (0.8-1.3) mg/dL Est Cr Clr Drug Dosing 111.29 mL/min Estimated GFR (MDRD) > 60 (>60) Glucose 101 (74-106) mg/dL Lactic Acid 1.3 (0.4-2.0) mmol/L Calcium 9.1 (8.5-10.1) mg/dL Total Bilirubin 0.5 (0.2-1.0) mg/dL AST 37 (15-37) U/L ALT 66 (12-78) U/L Alkaline Phosphatase 100 (46-116) U/L Troponin I < 0.017 (0.000-0.056) ng/mL Total Protein 7.7 (6.4-8.2) g/dL Albumin 3.9 (3.4-5.0) g/dL Globulin 3.8 H (2.3-3.5) g/dL Albumin/Globulin Ratio 1.0 L (1.2-2.2) Meds: Medications Generic Name Dose Route Start Last Admin Trade Name Radha PRN Reason Stop Dose Admin Morphine Sulfate 4 mg 03/24/20 09:02 03/24/20 09:14 Morphine IVPUSH 03/25/20 09:03 4 mg Q10M PRN Administration Chest Pain Discontinued Medications Generic Name Dose Route Start Last Admin Trade Name Radha PRN Reason Stop Dose Admin Aspirin 324 mg 03/24/20 09:02 03/24/20 09:14 Aspirin PO 03/24/20 09:03 324 mg ONETIME ONE Administration Ketorolac Tromethamine 60 mg 03/24/20 10:39 03/24/20 10:44 Toradol IM 03/24/20 10:40 60 mg ONETIME ONE Administration Ondansetron HCl 4 mg 03/24/20 09:05 03/24/20 09:14 Zofran Odt PO 03/24/20 09:06 4 mg ONETIME ONE Administration Departure - Departure Time of Disposition: 11:54 Disposition: Home, Self-Care 01 Condition: Fair Clinical Impression: Left shoulder pain Qualifiers: Chronicity: acute Qualified Code(s): M25.512 - Pain in left shoulder - Discharge Information Instructions: Shoulder Pain Referrals: PCP,None [Primary Care Provider] - Forms: ED Department Discharge Additional Instructions: Continue to use ibuprofen or Tylenol as needed for pain control please followup with your primary care provider in 3-5 days if not better, please call return to the emergency department with worsening of symptoms., Sepsis Event Note (ED) - Evaluation Sepsis Screening Result: No Definite Risk - Focused Exam Vital Signs: Vital Signs Temp Pulse Resp BP Pulse Ox 03/24/20 08:56 95.1 F L 97 20 146/91 H 96 03/24/20 08:34 97 20 146/91 H 97 - My Orders Last 24 Hours: My Active Orders 03/24/20 09:02 Cardiac Monitoring [RC] .As Directed Morphine 4 mg IVPUSH Q10M PRN EKG 12 Lead [EK] Stat 03/24/20 09:03 EKG Documentation Completion [RC] ASDIRECTED Chest 2V [CR] Stat - Assessment/Plan Last 24 Hours: My Active Orders 03/24/20 09:02 Cardiac Monitoring [RC] .As Directed Morphine 4 mg IVPUSH Q10M PRN EKG 12 Lead [EK] Stat 03/24/20 09:03 EKG Documentation Completion [RC] ASDIRECTED Chest 2V [CR] Stat Plan: Assessment Acuity = acute Site and laterality = right shoulder pain Etiology = unknown Manifestations = none Location of injury = Home Lab values = CBC, CMP, troponin, chest x-ray, EKG all within normal limits Plan He had good relief with Toradol x1 while in the emergency department was pain- free and follow-up with his primary care in the next 3 to 5 days if not better continue to use ibuprofen or Tylenol as needed for pain control This note was dictated using [employer] voice recognition software please call with any questions on syntax or grammar.
[2020-03-24] MEDS ORDERED: Ketorolac 60 MG/2 ML SDV IM ONE (10:39)
--- NOTE | 2020-03-25 09:52 | CR ---
CHEST: 2 view CLINICAL HISTORY:Chest pain COMPARISON:2011 FINDINGS: The heart size, pulmonary vascularity and hilar structures are normal. No infiltrate effusion or pneumothorax is seen. IMPRESSION: No acute cardiopulmonary process.
== END 2020-03-24 12:24 | disposition home or self-care (01) ==
LOC: JP.ED 08:19
DX: M25.512 Pain in left shoulder (principal); R11.2 Nausea with vomiting, unspecified; R07.9 Chest pain, unspecified; R06.02 Shortness of breath; E66.9 Obesity, unspecified; F41.9 Anxiety disorder, unspecified; K21.9 Gastro-esophageal reflux disease without esophagitis; F17.210 Nicotine dependence, cigarettes, uncomplicated; Z79.899 Other long term (current) drug therapy; Z68.34 Body mass index [BMI] 34.0-34.9, adult
CPT/HCPCS: 36415; 71046; 80053; 83605; 84484; 85025; 93005; 96372; 96374; 99284; A9270; J1885; J2270; 93010; 99283

== ENCOUNTER 2020-05-30 04:24 | Emergency (ER) | payer MEDICAID ==
[2020-05-30 04:51] VITALS: BP 137/94; PULSE 82
[2020-05-30] MEDS: Bupivacaine 0.5%/EPINEPHrine 1:200,000 1.8 ML Cartridge INJECT ONE (05:08)
--- NOTE | 2020-05-30 05:23 | EDM.PDOC ---
ED HPI GENERAL MEDICAL PROBLEM - General Chief Complaint: ENT Problem Stated Complaint: TOOTH PAIN RT SIDE OF MOUTH Time Seen by Provider: 05/30/20 04:52 Source of Information: Reports: Patient History Limitations: Reports: No Limitations - History of Present Illness INITIAL COMMENTS - FREE TEXT/NARRATIVE: Patient presents for evaluation of pain in a left mandibular molar over the last few weeks worse in the last couple of days. Overnight now, the tooth is been so uncomfortable he has been unable to sleep. He has been taking at least 3000 mg daily of ibuprofen but no change in how the tooth feels. He has been in contact with area dentists but reportedly has not had any calls back from them to set up an appointment. 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: Reports: NSAIDS lower right tooth Pain Score (Numeric/FACES): 8 - Related Data Allergies Allergy/AdvReac Type Severity Reaction Status Date / Time No Known Allergies Allergy Verified 05/30/20 04:48 Home Meds: Home Meds Omeprazole [Prilosec] 20 mg PO DAILY 05/07/14 [History] Albuterol [Ventolin HFA] 1 - 2 inh INH ASDIRECTED PRN 05/30/20 [History] Past Medical History HEENT History: Reports: Allergic Rhinitis Other HEENT History: hx ear infections Respiratory History: Reports: Asthma Gastrointestinal History: Reports: GERD Musculoskeletal History: Reports: Back Pain, Chronic, Fracture Other Musculoskeletal History: r wrist fx Neurological History: Reports: Migraines Psychiatric History: Reports: Anxiety Endocrine/Metabolic History: Reports: Obesity/BMI 30+ Dermatologic History: Reports: Cellulitis, Other (See Below) Other Dermatologic History: MRSA from cellulitis - Infectious Disease History Infectious Disease History: Reports: MRSA - Past Surgical History GI Surgical History: Reports: Cholecystectomy, Hernia, Inguinal Social & Family History - Tobacco Use Smoking Status *Q: Current Every Day Smoker Years of Tobacco use: 26 Packs/Tins Daily: 0.5 - Caffeine Use Caffeine Use: Reports: None - Recreational Drug Use Recreational Drug Use: No ED ROS ENT - Review of Systems Review Of Systems: Comprehensive ROS is negative, except as noted in HPI. ED EXAM, ENT - Physical Exam Exam: See Below Exam Limited By: No Limitations General Appearance: Alert, Moderate Distress Mouth/Throat: Dental Tenderness (Tooth #30 or 31.), Gum Swelling. No: Pharyngeal Erythema Course - Vital Signs Last Recorded V/S: Last Vital Signs Temp 36.4 C 05/30/20 04:43 Pulse 82 05/30/20 04:43 Resp 18 05/30/20 04:43 BP 137/94 H 05/30/20 04:43 Pulse Ox 97 05/30/20 04:43 - Orders/Labs/Meds Meds: Medications Discontinued Medications Generic Name Dose Route Start Last Admin Trade Name Radha PRN Reason Stop Dose Admin Bupivacaine HCl/Epinephrine Bitart 1.8 ml 05/30/20 04:57 05/30/20 05:08 Marcaine 0.5%/Epinephrine 1:200,000 INJECT 05/30/20 04:58 1.8 ml ONETIME ONE Administration - Re-Assessments/Exams Free Text/Narrative Re-Assessment/Exam: 05/30/20 06:02 Bupivacaine 0.5% with epinephrine was used to perform a block of the affected tooth infiltrating along the alveolar nerve and the long lingual nerve. Pain was improved substantially at time of discharge. He was sent with prescriptions for amoxicillin 500 mg, 15 tablets; tramadol 50 mg, 15 tablets; both use as directed. He can cover the tooth with a piece of sugar-free gum. He should contact his dental offices again to see if he has any closer to getting an appointment. Departure - Departure Time of Disposition: 06:05 Disposition: Home, Self-Care 01 Condition: Good Clinical Impression: Dental caries - Discharge Information Instructions: Dental Caries, Pediatric, Preventive Dental Care, Adult Referrals: Sheri Palencia DO [Primary Care Provider] - Forms: ED Department Discharge Additional Instructions: This pain shot will last for about 5 to 6 hours. Use ibuprofen 800 mg 3 or 4 times a day to help the background tooth pain. Putting a piece of chewing gum over the tooth will keep the air off of it and may improve your comfort also. Start antibiotic. Use tramadol as needed for worse pain but be careful because it will make you sleepy. Keep checking with area dentists. Sepsis Event Note (ED) - Evaluation Sepsis Screening Result: No Definite Risk - Focused Exam Vital Signs: Vital Signs Temp Pulse Resp BP Pulse Ox 05/30/20 04:43 36.4 C 82 18 137/94 H 97 05/30/20 04:41 36.4 C 82 18 137/94 H 97
== END 2020-05-30 05:31 | disposition home or self-care (01) ==
LOC: JP.ED 04:24
DX: K02.9 Dental caries, unspecified (principal); K21.9 Gastro-esophageal reflux disease without esophagitis; J45.909 Unspecified asthma, uncomplicated; E66.9 Obesity, unspecified; Z68.34 Body mass index [BMI] 34.0-34.9, adult; F17.210 Nicotine dependence, cigarettes, uncomplicated; Z90.49 Acquired absence of other specified parts of digestive tract; Z79.899 Other long term (current) drug therapy
CPT/HCPCS: 64400; 99282; J3490

== ENCOUNTER 2020-05-30 12:22 | Emergency (ER) | payer MEDICAID ==
[2020-05-30 12:49] VITALS: BP 137/104; PULSE 66
--- NOTE | 2020-05-30 13:18 | EDM.PDOC ---
ED HPI GENERAL MEDICAL PROBLEM - General Chief Complaint: ENT Problem Stated Complaint: TOOTH PAIN Time Seen by Provider: 05/30/20 13:05 Source of Information: Reports: Patient, RN Notes Reviewed History Limitations: Reports: No Limitations - History of Present Illness INITIAL COMMENTS - FREE TEXT/NARRATIVE: Guillermo presents today for complaints of dental pain that is not improving. He states he filled prescriptions today, took one dose of antibiotic and has no improvement in pain. He states he was in this morning around 5am for dental pain. He states he has not been able to get into a dentist. He reports injection to mouth helped some but the pain is back now. He denies any injury, trauma, fever, chills, nausea, vomiting or other concerns. Tooth/Teeth Pain Score (Numeric/FACES): 10 - Related Data Allergies Allergy/AdvReac Type Severity Reaction Status Date / Time No Known Allergies Allergy Verified 05/30/20 12:55 Home Meds: Home Meds Omeprazole [Prilosec] 20 mg PO DAILY 05/07/14 [History] Albuterol [Ventolin HFA] 1 - 2 inh INH ASDIRECTED PRN 05/30/20 [History] Past Medical History HEENT History: Reports: Allergic Rhinitis Other HEENT History: hx ear infections recent tooth pain Respiratory History: Reports: Asthma Gastrointestinal History: Reports: GERD Musculoskeletal History: Reports: Back Pain, Chronic, Fracture Other Musculoskeletal History: r wrist fx Neurological History: Reports: Migraines Psychiatric History: Reports: Anxiety Endocrine/Metabolic History: Reports: Obesity/BMI 30+ Dermatologic History: Reports: Cellulitis, Other (See Below) Other Dermatologic History: MRSA from cellulitis - Infectious Disease History Infectious Disease History: Reports: Chicken Pox - Past Surgical History GI Surgical History: Reports: Cholecystectomy, Hernia, Inguinal Social & Family History - Tobacco Use Smoking Status *Q: Current Every Day Smoker Years of Tobacco use: 20 Packs/Tins Daily: 0.5 Used Tobacco, but Quit: No Second Hand Smoke Exposure: Yes - Caffeine Use Caffeine Use: Reports: Soda - Alcohol Use Days Per Week of Alcohol Use: 0 - Recreational Drug Use Recreational Drug Use: No ED ROS ENT - Review of Systems Review Of Systems: See Below Constitutional: Denies: Fever, Chills, Malaise, Weakness HEENT: Reports: Dental Pain. Denies: Ear Discharge, Ear Pain, Hearing Loss, Sinus Problem, Throat Pain, Throat Swelling Respiratory: Reports: No Symptoms Cardiovascular: Reports: No Symptoms Musculoskeletal: Reports: No Symptoms Skin: Reports: No Symptoms Neurological: Reports: No Symptoms Psychiatric: Reports: No Symptoms Hematologic/Lymphatic: Reports: No Symptoms Immunologic: Reports: No Symptoms ED EXAM, ENT - Physical Exam Exam: See Below Exam Limited By: No Limitations General Appearance: Alert, WD/WN, No Apparent Distress Ears: Normal External Exam, Normal Canal, Hearing Grossly Normal, Normal TMs Nose: Normal Inspection, Normal Mucousa, No Blood Mouth/Throat: Normal Lips, Dental Pain, Dental Tenderness, Gum Swelling (to #30 or 31). No: Bleeding, Dental Trauma, Drooling, Dry Mucous Membrane, Hoarse Voice, Lip Swelling, Pharyngeal Erythema, Throat Pain, Tongue Swelling, Tonsillar Erythema, Tonsillar Exudates, Tonsillar Swelling, Uvular Deviation, Uvular Edema Head: Atraumatic, Normocephalic Neck: Normal Inspection, Supple, Non-Tender, Full Range of Motion. No: Lymphadenopathy (R), Lymphadenopathy (L) Respiratory/Chest: No Respiratory Distress, Lungs Clear, Normal Breath Sounds, No Accessory Muscle Use, Chest Non-Tender Cardiovascular: Normal Peripheral Pulses, Regular Rate, Rhythm, No Edema, No Gallop, No Murmur, No Rub Neurological: Alert, Oriented, Normal Cognition, Normal Gait Psychiatric: Normal Affect, Normal Mood Skin: Warm, Dry, Intact, Normal Color, No Rash Lymphatic: No Adenopathy Course - Vital Signs Last Recorded V/S: Last Vital Signs Temp 36.3 C 05/30/20 13:00 Pulse 66 05/30/20 13:00 Resp 18 05/30/20 13:00 BP 137/104 H 05/30/20 13:00 Pulse Ox 99 05/30/20 13:00 - Orders/Labs/Meds Meds: Medications Discontinued Medications Generic Name Dose Route Start Last Admin Trade Name Freq PRN Reason Stop Dose Admin Ketorolac Tromethamine 60 mg 05/30/20 13:14 05/30/20 13:23 Toradol IM 05/30/20 13:15 60 mg ONETIME ONE Administration - Re-Assessments/Exams Free Text/Narrative Re-Assessment/Exam: 05/30/20 [facility] pharmacy of choice contacted for patient, meloxicam and dental paste called in 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 Patient given toradol 60mg IM, advised to continue current antibiotics, stop all other NSAIDs, start meloxicam, take tylenol for pain. Dental paste for pain. Plan reviewed with patient, he is in agreement. Dental referral for TuesdayJune 02 sent to [facility] dental. Work note provided for today and 06/02/2020. Departure - Departure Time of Disposition: 13:21 Disposition: Home, Self-Care 01 Condition: Good Clinical Impression: Dental caries extending into dentin - Discharge Information Instructions: Tooth Injuries, [id number] Referrals: Sheri Palencia DO [Primary Care Provider] - Forms: ED Department Discharge Additional Instructions: You have been treated and evaluated for dental pain. Continue current antibiotics (amoxicillin) as directed. Take meloxicam 7.5mg by mouth twice a day for 10 days for pain. Stop taking ibuprofen, naproxen, motrin, advil as you cannot take this medication with meloxicam. Continue to take tramadol that was provided to you. You can also take acetaminophen (tylenol) 1000mg by mouth three times a day for pain. Use topical dental paste for pain, a small amount to gum around tooth twice a day for pain. Avoid very hot/cold beverages/food. Report to [facility] clinic on TuesdayJune 02 at 8:00am. Return for worsening, issues or concerns. Sepsis Event Note (ED) - Evaluation Sepsis Screening Result: No Definite Risk - Focused Exam Vital Signs: Vital Signs Temp Pulse Resp BP Pulse Ox 05/30/20 13:00 36.3 C 66 18 137/104 H 99 05/30/20 12:46 36.3 C 66 18 137/104 H 99 - Assessment/Plan Assessment:: Dental caries extending into dentin Prescribed amoxicillin, tramadol earlier today, patient reports one dose of antibiotic taken. Plan: Patient treated and evaluated for dental pain. Continue current antibiotics (amoxicillin) as directed. Take meloxicam 7.5mg by mouth twice a day for 10 days for pain. Stop taking ibuprofen, naproxen, motrin, advil as you cannot take this medication with meloxicam. Continue to take tramadol that was provided to you. You can also take acetaminophen (tylenol) 1000mg by mouth three times a day for pain. Use topical dental paste for pain, a small amount to gum around tooth twice a day for pain. Avoid very hot/cold beverages/food. Report to [facility] clinic on TuesdayJune 02 at 8:00am. Return for worsening, issues or concerns.
[2020-05-30] MEDS: Ketorolac 60 MG/2 ML SDV IM ONE (13:23)
== END 2020-05-30 13:53 | disposition home or self-care (01) ==
LOC: JP.ED 12:22
DX: K02.9 Dental caries, unspecified (principal); J45.909 Unspecified asthma, uncomplicated; K21.9 Gastro-esophageal reflux disease without esophagitis; E66.9 Obesity, unspecified; F17.210 Nicotine dependence, cigarettes, uncomplicated; Z90.49 Acquired absence of other specified parts of digestive tract; Z79.899 Other long term (current) drug therapy; Z68.34 Body mass index [BMI] 34.0-34.9, adult
CPT/HCPCS: 96372; 99282; J1885

== ENCOUNTER 2020-05-31 11:07 | Emergency (ER) | payer MEDICAID ==
[2020-05-31] MEDS ORDERED: Alum Hydrox/Mag Hydrox/Simeth 15 ML, Lidocaine 2% 15 ML PO ONE ×2 (11:09)
[2020-05-31] MEDS ORDERED: Ondansetron 4 MG/2 ML SDV IVPUSH ONE (11:46)
[2020-05-31] MEDS ORDERED: HYDROmorphone 0.5 MG/0.5 ML Syringe IVPUSH ONE (11:46)
[2020-05-31 11:47] VITALS: BP 146/98; PULSE 84
--- NOTE | 2020-05-31 12:14 | EDM.PDOC ---
ED HPI GENERAL MEDICAL PROBLEM - General Chief Complaint: ENT Problem Stated Complaint: TOOTH PAIN/SWELLING Time Seen by Provider: 05/31/20 11:44 Source of Information: Reports: Patient, RN Notes Reviewed History Limitations: Reports: No Limitations - History of Present Illness INITIAL COMMENTS - FREE TEXT/NARRATIVE: Guillermo presents today for complaints of worsening right lower jaw/dental pain. He reports he has been taking medication as directed. He states he now has swelling to the right lower jaw extending to the right neck. He states pain has not improved. He did try a hot pack and this helped the pain a little. Patient reports he has not picked up meloxicam or topical dental paste. - Related Data Allergies Allergy/AdvReac Type Severity Reaction Status Date / Time No Known Allergies Allergy Verified 05/31/20 11:40 Home Meds: Home Meds Omeprazole [Prilosec] 20 mg PO DAILY 05/07/14 [History] Albuterol [Ventolin HFA] 1 - 2 inh INH ASDIRECTED PRN 05/30/20 [History] Amoxicillin 1 tab PO TID 05/31/20 [History] Past Medical History HEENT History: Reports: Allergic Rhinitis Other HEENT History: hx ear infections recent tooth pain Respiratory History: Reports: Asthma Gastrointestinal History: Reports: GERD Musculoskeletal History: Reports: Back Pain, Chronic, Fracture Other Musculoskeletal History: r wrist fx Neurological History: Reports: Migraines Psychiatric History: Reports: Anxiety Endocrine/Metabolic History: Reports: Obesity/BMI 30+ Dermatologic History: Reports: Cellulitis, Other (See Below) Other Dermatologic History: MRSA from cellulitis - Infectious Disease History Infectious Disease History: Reports: Chicken Pox - Past Surgical History GI Surgical History: Reports: Cholecystectomy, Hernia, Inguinal Social & Family History - Tobacco Use Smoking Status *Q: Current Every Day Smoker Years of Tobacco use: 20 Packs/Tins Daily: 0.5 - Caffeine Use Caffeine Use: Reports: Soda ED ROS ENT - Review of Systems Review Of Systems: See Below Constitutional: Reports: Decreased Appetite HEENT: Reports: Dental Pain, Other (right lower jaw pain radiating to the right neck with edema) Respiratory: Reports: No Symptoms Cardiovascular: Reports: No Symptoms Endocrine: Reports: No Symptoms GI/Abdominal: Reports: Nausea. Denies: Vomiting Musculoskeletal: Reports: Neck Pain (radiating from the jaw/#31, #30 tooth) Skin: Reports: No Symptoms Neurological: Reports: No Symptoms Psychiatric: Reports: No Symptoms Hematologic/Lymphatic: Reports: No Symptoms Immunologic: Reports: No Symptoms ED EXAM, ENT - Physical Exam Exam: See Below Exam Limited By: No Limitations General Appearance: Alert, WD/WN, Mild Distress Eye Exam: Bilateral Eye: Normal Inspection, PERRL Ears: Normal External Exam, Normal Canal, Hearing Grossly Normal, Normal TMs. No: TM Bulging, TM Dullness, TM Erythema, TM Perforation Nose: Normal Inspection, Normal Mucousa, No Blood Mouth/Throat: Normal Lips, Dental Abcess, Dental Pain, Dental Tenderness (to right lower at tooth #30 or #31, fluctuance, erythema noted. ). No: Throat Swelling, Tongue Swelling, Tonsillar Erythema, Tonsillar Exudates, Tonsillar Swelling, Uvular Deviation, Uvular Edema Head: Atraumatic, Normocephalic Neck: Full Range of Motion, Lymphadenopathy (R), Tender Lateral (tenderness to right lateral). No: Lymphadenopathy (L), Tender Midline Respiratory/Chest: No Respiratory Distress, Lungs Clear, Normal Breath Sounds, No Accessory Muscle Use, Chest Non-Tender Cardiovascular: Normal Peripheral Pulses, Regular Rate, Rhythm, No Edema, No Gallop, No Murmur Extremities: Normal Inspection, Normal Range of Motion, Non-Tender, No Pedal Edema, Normal Capillary Refill Neurological: Alert, Oriented, Normal Cognition, Normal Gait, No Motor/Sensory Deficits Psychiatric: Normal Affect, Normal Mood Skin: Warm, Dry, No Rash Lymphatic: No Adenopathy Course - Vital Signs Last Recorded V/S: Last Vital Signs Temp 37.6 C 05/31/20 11:44 Pulse 84 05/31/20 11:44 Resp 16 05/31/20 11:44 BP 146/98 H 05/31/20 11:44 Pulse Ox 99 05/31/20 11:44 - Orders/Labs/Meds Labs: Laboratory Tests 05/31/20 05/31/20 Range/Units 12:00 12:00 WBC 8.3 (4.5-11.0) K/uL RBC 5.43 (4.30-5.90) M/uL Hgb 16.1 H (12.0-15.0) g/dL Hct 46.9 (40.0-54.0) % MCV 86 (80-98) fL MCH 30 (27-31) pg MCHC 34 (32-36) % Plt Count 284 (150-400) K/uL Neut % (Auto) 70 H (36-66) % Lymph % (Auto) 12 L (24-44) % Hardeman % (Auto) 13 H (2-6) % Eos % (Auto) 5 H (2-4) % Baso % (Auto) 0 (0-1) % Sodium 138 L (140-148) mmol/L Potassium 3.8 (3.6-5.2) mmol/L Chloride 101 (100-108) mmol/L Carbon Dioxide 25 (21-32) mmol/L Anion Gap 15.8 H (5.0-14.0) mmol/L BUN 17 (7-18) mg/dL Creatinine 0.9 (0.8-1.3) mg/dL Est Cr Clr Drug Dosing 107.67 mL/min Estimated GFR (MDRD) > 60 (>60) Glucose 117 H (74-106) mg/dL Calcium 9.4 (8.5-10.1) mg/dL C-Reactive Protein 1.09 H (0.0-0.3) mg/dL Patient notified of lab results, all his questions were answered. We will do a loading dose of clindamycin 600mg IV, ondansetron 4mg for nausea and dilaudid 0.5mg for pain. Pain and nausea improved after ondansetron and dilaudid. Patient will be discharged with oral clindamycin and 2 more days of tramadol. 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 Meds: Medications Discontinued Medications Generic Name Dose Route Start Last Admin Trade Name Phillipq PRN Reason Stop Dose Admin Hydromorphone HCl 0.5 mg 05/31/20 11:46 05/31/20 12:05 Dilaudid IVPUSH 05/31/20 11:47 0.5 mg ONETIME ONE Administration Clindamycin Phosphate 600 mg/ 54 mls @ 100 mls/hr 05/31/20 11:46 05/31/20 12:05 Sodium Chloride IV 05/31/20 12:18 100 mls/hr ONETIME ONE Administration Ondansetron HCl 4 mg 05/31/20 11:46 05/31/20 12:05 Zofran IVPUSH 05/31/20 11:47 4 mg ONETIME ONE Administration Departure - Departure Time of Disposition: 12:50 Disposition: Home, Self-Care 01 Condition: Good Clinical Impression: Dental abscess - Discharge Information *PRESCRIPTION DRUG MONITORING PROGRAM REVIEWED*: Yes *COPY OF PRESCRIPTION DRUG MONITORING REPORT IN PATIENT SHRUTHI: Yes Instructions: Dental Abscess, [id number] Referrals: Sheri Palencia DO [Primary Care Provider] - Forms: ED Department Discharge Additional Instructions: Stop use of amoxicillin antibiotic. You were given clindamycin 600mg IV for infection in the emergency room and dilaudid IV for pain. You will take clindamycin 300mg by mouth every 6 hours for dental abscess. Continue meloxicam, acetaminophen and tramadol as directed. Return for any worsening, issues or concerns. Follow up with dental referral on Tuesday as previously directed. Sepsis Event Note (ED) - Evaluation Sepsis Screening Result: No Definite Risk - Focused Exam Vital Signs: Vital Signs Temp Pulse Resp BP Pulse Ox 05/31/20 11:44 37.6 C 84 16 146/98 H 99 - Assessment/Plan Assessment:: Dental abscess Plan: Stop use of amoxicillin antibiotic. You were given clindamycin 600mg IV for infection in the emergency room and dilaudid IV for pain. You will take clindamycin 300mg by mouth every 6 hours for dental abscess. Continue meloxicam, acetaminophen and tramadol as directed. Return for any worsening, issues or concerns. Follow up with dental referral on Tuesday as previously directed.
== END 2020-05-31 13:03 | disposition home or self-care (01) ==
LOC: JP.ED 11:07
DX: K04.7 Periapical abscess without sinus (principal); J45.909 Unspecified asthma, uncomplicated; K21.9 Gastro-esophageal reflux disease without esophagitis; E66.9 Obesity, unspecified; F17.210 Nicotine dependence, cigarettes, uncomplicated; Z90.49 Acquired absence of other specified parts of digestive tract; Z79.899 Other long term (current) drug therapy; Z68.33 Body mass index [BMI] 33.0-33.9, adult
CPT/HCPCS: 36415; 80048; 85025; 86140; 96365; 96375; 99283; J1170; J2405; J3490; J7050; 99284

== ENCOUNTER 2020-09-02 17:04 | Emergency (ER) | payer MEDICAID ==
[2020-09-02 17:19] VITALS: BP 137/87; PULSE 98
--- NOTE | 2020-09-02 17:52 | EDM.PDOC ---
ED HPI GENERAL MEDICAL PROBLEM - General Chief Complaint: ENT Problem Stated Complaint: BOTTOM JAW PAIN Time Seen by Provider: 09/02/20 17:40 Source of Information: Reports: Patient History Limitations: Reports: No Limitations - History of Present Illness INITIAL COMMENTS - FREE TEXT/NARRATIVE: 40-year-old male who had a dental extraction done 3 months ago, is continuing to have problems with bone fragments coming out and recurring pain. He was seen again 3 weeks ago, they tried to extract a piece of bone but were unsuccessful but 2 weeks ago he pulled it out with his fingernail and actually has a picture of it. He is waiting for a referral to a dental surgeon. Over the last couple days it has really gotten worse and inflamed. No fevers or chills, no facial swelling. Onset: Gradual Duration: Week(s): (Ongoing for weeks, worse the last 48 hours) Location: Reports: Other (Right mandible) Associated Symptoms: Reports: Other (Starting to have difficulty swallowing). Denies: Fever/Chills, Headaches Right Face/Facial Pain Score (Numeric/FACES): 7 - Related Data Allergies Allergy/AdvReac Type Severity Reaction Status Date / Time No Known Allergies Allergy Verified 09/02/20 17:24 Home Meds: Home Meds Omeprazole [Prilosec] 20 mg PO DAILY 05/07/14 [History] Albuterol [Ventolin HFA] 1 - 2 inh INH ASDIRECTED PRN 05/30/20 [History] Past Medical History HEENT History: Reports: Allergic Rhinitis Other HEENT History: hx ear infections recent tooth pain Respiratory History: Reports: Asthma Gastrointestinal History: Reports: GERD Musculoskeletal History: Reports: Back Pain, Chronic, Fracture Other Musculoskeletal History: r wrist fx Neurological History: Reports: Migraines Psychiatric History: Reports: Anxiety Endocrine/Metabolic History: Reports: Obesity/BMI 30+ Dermatologic History: Reports: Cellulitis, Other (See Below) Other Dermatologic History: MRSA from cellulitis - Infectious Disease History Infectious Disease History: Reports: Chicken Pox - Past Surgical History HEENT Surgical History: Reports: None Respiratory Surgical History: Reports: None GI Surgical History: Reports: Cholecystectomy, Hernia, Inguinal Endocrine Surgical History: Reports: None Neurological Surgical History: Reports: None Musculoskeletal Surgical History: Reports: None Dermatological Surgical History: Reports: None Social & Family History - Tobacco Use Tobacco Use Status *Q: Current Every Day Tobacco User Years of Tobacco use: 20 Packs/Tins Daily: 0.5 - Caffeine Use Caffeine Use: Reports: Soda ED ROS GENERAL - Review of Systems Review Of Systems: See Below Constitutional: Reports: Malaise. Denies: Fever, Chills HEENT: Reports: Dental Pain Respiratory: Denies: Shortness of Breath, Cough GI/Abdominal: Reports: No Symptoms Skin: Reports: No Symptoms Neurological: Denies: Headache ED EXAM, DIZZINESS - Physical Exam Exam: See Below Exam Limited By: No Limitations General Appearance: Alert, No Apparent Distress (Looks uncomfortable but not distressed) Throat/Mouth: Other (Patient does have what appears to be 2 small areas of exposed bone over the area of the wisdom tooth right mandible. There is surrounding erythema and it is exquisitely tender to palpation. No external swelling or erythema, no adenopathy.) Course - Vital Signs Last Recorded V/S: Last Vital Signs Temp 97.0 F 09/02/20 17:19 Pulse 98 09/02/20 17:19 Resp 16 09/02/20 17:19 BP 137/87 09/02/20 17:19 Pulse Ox 97 09/02/20 17:19 - Re-Assessments/Exams Free Text/Narrative Re-Assessment/Exam: 09/02/20 17:51 Patient was placed on penicillin 500 mg 4 times a day for 10 days, he should continue ibuprofen or naproxen, and he was given 10 hydrocodone to use sparingly for extra pain control but he needs to call the dentist tomorrow to update his condition and get his referral activated. Departure - Departure Time of Disposition: 18:01 Disposition: Home, Self-Care 01 Clinical Impression: Pain, dental - Discharge Information Instructions: Acute Pain, Adult Referrals: Sheri Palencia DO [Primary Care Provider] - Forms: ED Department Discharge Care Plan Goals: Take antibiotic 4 times a day as prescribed until gone, and call the dentist tomorrow to move up your appointment as quickly as possible or be rechecked at the dentist office. Continue with ibuprofen or naproxen and use hydrocodone as needed sparingly for extra pain control. Sepsis Event Note (ED) - Evaluation Sepsis Screening Result: No Definite Risk - Focused Exam Vital Signs: Vital Signs Temp Pulse Resp BP Pulse Ox 09/02/20 17:19 97.0 F 98 16 137/87 97 12/15/20 17:17 97.0 F 98 16 137/87 97
== END 2020-09-02 18:03 | disposition home or self-care (01) ==
LOC: JP.ED 17:04
DX: K08.89 Other specified disorders of teeth and supporting structures (principal); K21.9 Gastro-esophageal reflux disease without esophagitis; J45.909 Unspecified asthma, uncomplicated; E66.9 Obesity, unspecified; Z68.32 Body mass index [BMI] 32.0-32.9, adult; F17.210 Nicotine dependence, cigarettes, uncomplicated; Z79.899 Other long term (current) drug therapy
CPT/HCPCS: 99282; 99283

== ENCOUNTER 2020-12-01 09:01 | Emergency (ER) | payer MEDICAID ==
--- NOTE | 2020-12-01 09:42 | EDM.PDOC ---
ED HPI GENERAL MEDICAL PROBLEM - General Stated Complaint: MEDICAL Time Seen by Provider: 12/01/20 09:01 Source of Information: Reports: Patient, EMS History Limitations: Reports: Altered Mental Status - History of Present Illness INITIAL COMMENTS - FREE TEXT/NARRATIVE: 40-year-old male found on the floor unresponsive and not breathing. Some CPR was done on the patient by a bystander and 911 was called. On arrival he was found to be blue, significantly hypoxic with O2 sats in the 30s, and not breathing. He did have a pulse. Respiratory assist was given and the patient was given 0.5 mg of Narcan. He had a significant disconjugate gaze and was initially completely unresponsive. Within a few minutes he started to moan, move around, and breathe on his own. By the time he got to the emergency room he was answering questions, still some slurred speech but neurologically intact. Onset: Unknown/Unsure Associated Symptoms: Reports: Other (Unresponsive) denies Pain Score (Numeric/FACES): 0 - Related Data Allergies Allergy/AdvReac Type Severity Reaction Status Date / Time No Known Allergies Allergy Verified 12/01/20 09:44 Home Meds: Home Meds Omeprazole [Prilosec] 20 mg PO DAILY 05/07/14 [History] Albuterol [Ventolin HFA] 1 - 2 inh INH ASDIRECTED PRN 05/30/20 [History] Past Medical History HEENT History: Reports: Allergic Rhinitis Other HEENT History: hx ear infections recent tooth pain Respiratory History: Reports: Asthma Gastrointestinal History: Reports: GERD Musculoskeletal History: Reports: Back Pain, Chronic, Fracture Other Musculoskeletal History: r wrist fx Neurological History: Reports: Migraines Psychiatric History: Reports: Anxiety Endocrine/Metabolic History: Reports: Obesity/BMI 30+ Dermatologic History: Reports: Cellulitis, Other (See Below) Other Dermatologic History: MRSA from cellulitis - Infectious Disease History Infectious Disease History: Reports: Chicken Pox - Past Surgical History HEENT Surgical History: Reports: None Respiratory Surgical History: Reports: None GI Surgical History: Reports: Cholecystectomy, Hernia, Inguinal Endocrine Surgical History: Reports: None Neurological Surgical History: Reports: None Musculoskeletal Surgical History: Reports: None Dermatological Surgical History: Reports: None Social & Family History - Caffeine Use Caffeine Use: Reports: Soda ED ROS GENERAL - Review of Systems Review Of Systems: See Below (Minimal review of systems due to the patient's condition, however he denies any recent illness) Respiratory: Denies: Shortness of Breath Cardiovascular: Reports: Chest Pain (His chest does hurt from the CPR) GI/Abdominal: Denies: Nausea, Vomiting Neurological: Denies: Headache ED EXAM, GENERAL - Physical Exam Exam: See Below Exam Limited By: Altered Mental Status General Appearance: Lethargic Eye Exam: Bilateral Eye: PERRL (Pupils are equal but very small, symmetric), Other (No disconjugate gaze at this time) Head: Atraumatic Respiratory/Chest: No Respiratory Distress, Lungs Clear Cardiovascular: Regular Rate, Rhythm, Other (Anterior chest wall is sore to palpation) GI/Abdominal: Soft, Non-Tender Extremities: No: Pedal Edema Neurological: Alert, Disoriented, Slow to Respond Skin Exam: Warm, Dry Course - Vital Signs Last Recorded V/S: Last Vital Signs Temp 96.2 F L 12/01/20 10:00 Pulse 89 12/01/20 10:22 Resp 8 L 12/01/20 10:22 BP 122/81 12/01/20 10:22 Pulse Ox 96 12/01/20 10:22 - Re-Assessments/Exams Free Text/Narrative Re-Assessment/Exam: 12/01/20 09:41 Patient's vitals were stable without treatment, he was monitored. No additional Narcan given. Patient was able to admit that he was snorting oxycodone. 12/01/20 09:58 After 30 minutes the patient was more responsive, able to carry on a conversation and vitals remained stable. Still sleepy and somewhat slurred speech. 12/01/20 10:36 Patient continued to improve and is stable for discharge. Offered detox but refused. Was discharged to the care of his family. Departure - Departure Time of Disposition: 11:02 Disposition: Home, Self-Care 01 Clinical Impression: Narcotic overdose Qualifiers: Encounter type: initial encounter Injury intent: accidental or unintentional Qualified Code(s): T40.601A - Poisoning by unspecified narcotics, accidental (unintentional), initial encounter - Discharge Information Instructions: Opioid Overdose Referrals: PCP,None [Primary Care Provider] - Forms: ED Department Discharge Care Plan Goals: Avoid any future use and abuse of narcotics, consider treatment if needed. Sepsis Event Note (ED) - Focused Exam Vital Signs: Vital Signs Temp Pulse Resp BP Pulse Ox 12/01/20 10:22 89 8 L 122/81 96 12/01/20 10:02 97 10 L 113/83 96 12/01/20 10:00 96.2 F L 91 10 L 113/77 96 12/01/20 09:42 88 9 L 102/72 98 12/01/20 09:39 91 10 L 113/77 96 12/01/20 09:22 92 9 L 106/69 99 12/01/20 09:02 89 11 L 110/75 96
[2020-12-01 10:46] VITALS: BP 122/81; PULSE 89
== END 2020-12-01 11:02 | disposition home or self-care (01) ==
LOC: JP.ED 09:01
DX: T40.601A Poisoning by unspecified narcotics, accidental (unintentional), initial encounter (principal); J45.909 Unspecified asthma, uncomplicated; K21.9 Gastro-esophageal reflux disease without esophagitis; E66.9 Obesity, unspecified; Z68.29 Body mass index [BMI] 29.0-29.9, adult; Z79.899 Other long term (current) drug therapy
CPT/HCPCS: 99285

== ENCOUNTER 2020-12-01 21:37 | Inpatient (IN) | payer MEDICAID ==
[2020-12-01] MEDS ORDERED: Ondansetron 4 MG Tab.DIS PO ONE (21:50)
[2020-12-01] MEDS ORDERED: Ondansetron 4 MG Tab.DIS ONE (21:52)
[2020-12-01] MEDS ORDERED: Alum Hydrox/Mag Hydrox/Simeth 15 ML, Lidocaine 2% 15 ML PO ONE ×2 (22:25)
[2020-12-01] MEDS ORDERED: Lactated Ringers 1,000 ML IV SCH (22:30)
--- NOTE | 2020-12-01 22:31 | EDM.PDOC ---
ED HPI GENERAL MEDICAL PROBLEM - General Chief Complaint: Gastrointestinal Problem Stated Complaint: ADB PAIN Time Seen by Provider: 12/01/20 22:10 Source of Information: Reports: Patient, Old Records, RN History Limitations: Reports: No Limitations - History of Present Illness INITIAL COMMENTS - FREE TEXT/NARRATIVE: 40 yo male here with epigastric pain and nausea/vomiting that began a couple hrs ago. No fever. Last BM was yesterday. No blood in his emesis. Has a pHx of a cholecystectomy, no other abdominal surgeries. Was here earlier today for an OD of oxycodone and refused detox at that visit. Denies a hx of pancreas issues. Denies any ETOH consumption for a couple weeks. Onset: Today, Gradual Onset Date: 12/01/20 Duration: Hour(s):, Constant Location: Reports: Abdomen (epigastric) Quality: Reports: Burning Severity: Moderate Improves with: Reports: None Worsens with: Reports: Other (touching area) Context: Reports: Other (See HPI) Associated Symptoms: Reports: Nausea/Vomiting. Denies: Fever/Chills Treatments [employer]ES [employer]: Reports: Other (see below) (none) epigastric Pain Score (Numeric/FACES): 5 - Related Data Allergies Allergy/AdvReac Type Severity Reaction Status Date / Time No Known Allergies Allergy Verified 12/01/20 21:53 Home Meds: Home Meds Omeprazole Magnesium 20 mg PO DAILY 12/01/20 [History] Past Medical History HEENT History: Reports: Allergic Rhinitis Other HEENT History: hx ear infections recent tooth pain Respiratory History: Reports: Asthma Gastrointestinal History: Reports: GERD Musculoskeletal History: Reports: Back Pain, Chronic, Fracture Other Musculoskeletal History: r wrist fx Neurological History: Reports: Migraines Psychiatric History: Reports: Anxiety Endocrine/Metabolic History: Reports: Obesity/BMI 30+ Dermatologic History: Reports: Cellulitis, Other (See Below) Other Dermatologic History: MRSA from cellulitis - Infectious Disease History Infectious Disease History: Reports: Chicken Pox - Past Surgical History HEENT Surgical History: Reports: None Respiratory Surgical History: Reports: None GI Surgical History: Reports: Cholecystectomy, Hernia, Inguinal Endocrine Surgical History: Reports: None Neurological Surgical History: Reports: None Musculoskeletal Surgical History: Reports: None Dermatological Surgical History: Reports: None Social & Family History - Tobacco Use Tobacco Use Status *Q: Current Every Day Tobacco User Years of Tobacco use: 26 Packs/Tins Daily: 0.5 - Caffeine Use Caffeine Use: Reports: Soda - Alcohol Use Days Per Week of Alcohol Use: 1 Number of Drinks Per Day: 6 Total Drinks Per Week: 6 - Recreational Drug Use Recreational Drug Use: Yes Drug Use in Last 12 Months: Yes Recreational Drug Type: Reports: Marijuana/Hashish, Methamphetamine, Oxycodone Recreational Drug Use Frequency: Daily ED ROS GENERAL - Review of Systems Review Of Systems: See Below Constitutional: Reports: Decreased Appetite. Denies: Fever, Chills HEENT: Reports: No Symptoms Respiratory: Reports: No Symptoms Cardiovascular: Reports: No Symptoms GI/Abdominal: Reports: Abdominal Pain, Nausea, Vomiting. Denies: Black Stool, Bloody Stool, Constipation, Diarrhea, Distension, Hematemesis, Hematochezia, Melena : Reports: No Symptoms Musculoskeletal: Reports: No Symptoms Skin: Reports: No Symptoms Neurological: Reports: No Symptoms ED EXAM, GI/ABD - Physical Exam Exam: See Below Exam Limited By: No Limitations General Appearance: Alert, WD/WN, Mild Distress Eyes: Bilateral: Normal Appearance Ears: Normal External Exam, Normal Canal, Hearing Grossly Normal Nose: Normal Inspection, No Blood Throat/Mouth: Normal Inspection, Normal Lips, Normal Oropharynx, Normal Voice, No Airway Compromise, Other (dry oral mucosa) Head: Atraumatic, Normocephalic Neck: Normal Inspection Respiratory/Chest: No Respiratory Distress, Lungs Clear, Normal Breath Sounds, No Accessory Muscle Use Cardiovascular: Regular Rate, Rhythm, No Edema, Tachycardia GI/Abdominal Exam: Normal Bowel Sounds, Soft, No Distention, Tender (epigastric pain). No: Non-Tender, Distended, Guarding, Rigid, Rebound Extremities: Normal Inspection, Normal Range of Motion, Non-Tender, No Pedal Edema. No: Pedal Edema, Redness Neurological: Alert, Oriented, CN II-XII Intact, Normal Cognition, No Motor/Sensory Deficits Psychiatric: Normal Affect, Normal Mood Skin Exam: Warm, Dry, Intact, Normal Color, No Rash Course - Vital Signs Text/Narrative:: Discussed with Thania Sosa @ 004 Last Recorded V/S: Last Vital Signs Temp 36.1 C 12/02/20 00:38 Pulse 65 12/02/20 00:38 Resp 15 12/02/20 00:38 BP 130/89 12/02/20 00:38 Pulse Ox 98 12/02/20 00:38 - Orders/Labs/Meds Orders: Active Orders 24 hr Category Date Time Status Iopamidol [Isovue-300 (61%)] Med 12/01/20 23:30 Active 100 ml IV . DIRECTED Lactated Ringers [Ringers, Lactated] 1,000 ml Med 12/01/20 22:30 Active IV ASDIRECTED Lactated Ringers [Ringers, Lactated] 1,000 ml Med 12/02/20 00:30 Active IV ASDIRECTED Pantoprazole [ProTONIX IV] Med 12/02/20 00:30 Active 80 mg IVPUSH .BOLUS Sodium Chloride 0.9% [Normal Saline] 76 ml Med 12/01/20 23:30 Active IV ASDIRECTED Medication Orders Lactated Ringer's (Ringers, Lactated) 1,000 mls @ 1,000 mls/hr IV ASDIRECTED LIBAN Last Admin: 12/01/20 22:33 Dose: 1,000 mls/hr Documented by: JULIANNA Sodium Chloride (Normal Saline) 76 mls @ 3 mls/sec IV ASDIRECTED LIBAN Last Admin: 12/01/20 23:42 Dose: 3 mls/sec Documented by: JHOANA Lactated Ringer's (Ringers, Lactated) 1,000 mls @ 500 mls/hr IV ASDIRECTED LIBAN Last Admin: 12/02/20 00:38 Dose: 500 mls/hr Documented by: JULIANNA Iopamidol (Iopamidol 612 Mg/Ml 100 Ml Bottle) 100 ml IV . DIRECTED [facility] Last Admin: 12/01/20 23:42 Dose: 100 ml Documented by: JHOANA Pantoprazole Sodium (Pantoprazole 40 Mg Vial) 80 mg IVPUSH .BOLUS LIBAN Labs: Laboratory Tests 12/01/20 12/01/20 12/01/20 Range/Units 22:28 22:40 22:40 WBC 13.2 H (4.5-11.0) K/uL RBC 5.93 H (4.30-5.90) M/uL Hgb 17.2 H (12.0-15.0) g/dL Hct 50.6 (40.0-54.0) % MCV 85 (80-98) fL MCH 29 (27-31) pg MCHC 34 (32-36) % Plt Count 275 (150-400) K/uL Sodium 140 (140-148) mmol/L Potassium 4.1 (3.6-5.2) mmol/L Chloride 99 L (100-108) mmol/L Carbon Dioxide 29 (21-32) mmol/L Anion Gap 16.1 H (5.0-14.0) mmol/L BUN 18 (7-18) mg/dL Creatinine 1.0 (0.8-1.3) mg/dL Est Cr Clr Drug Dosing 95.95 mL/min Estimated GFR (MDRD) > 60 (>60) Glucose 113 H (74-106) mg/dL Calcium 9.3 (8.5-10.1) mg/dL Total Bilirubin 0.7 (0.2-1.0) mg/dL AST 190 H D (15-37) U/L ALT 269 H (12-78) U/L Alkaline Phosphatase 146 H (46-116) U/L Total Protein 7.6 (6.4-8.2) g/dL Albumin 4.0 (3.4-5.0) g/dL Globulin 3.6 H (2.3-3.5) g/dL Albumin/Globulin Ratio 1.1 L (1.2-2.2) Lipase 1775 H (73-393) U/L Urine Opiates Screen Negative (NEGATIVE) Ur Oxycodone Screen Negative (NEGATIVE) Urine Methadone Screen Negative (NEGATIVE) Ur Propoxyphene Screen Negative (NEGATIVE) Ur Barbiturates Screen Negative (NEGATIVE) Ur Tricyclics Screen Negative (NEGATIVE) Ur Phencyclidine Scrn Negative (NEGATIVE) Ur Amphetamine Screen Presumptive positive H (NEGATIVE) U Methamphetamines Scrn Presumptive positive H (NEGATIVE) Urine MDMA Screen Presumptive positive H (NEGATIVE) U Benzodiazepines Scrn Negative (NEGATIVE) U Cocaine Metab Screen Negative (NEGATIVE) U Marijuana (THC) Screen Presumptive positive H (NEGATIVE) Meds: Medications Generic Name Dose Route Start Last Admin Trade Name Freq PRN Reason Stop Dose Admin Lactated Ringer's 1,000 mls @ 1,000 mls/hr 12/01/20 22:30 12/01/20 22:33 Ringers, Lactated IV 1,000 mls/hr ASDIRECTED LIBAN Administration Sodium Chloride 76 mls @ 3 mls/sec 12/01/20 23:30 12/01/20 23:42 Normal Saline IV 3 mls/sec ASDIRECTED LIBAN Administration Lactated Ringer's 1,000 mls @ 500 mls/hr 12/02/20 00:30 12/02/20 00:38 Ringers, Lactated IV 500 mls/hr ASDIRECTED LIBAN Administration Iopamidol 100 ml 12/01/20 23:30 12/01/20 23:42 Iopamidol 612 Mg/Ml 100 Ml Bottle IV 100 ml . DIRECTED LIBAN Administration Pantoprazole Sodium 80 mg 12/02/20 00:30 Pantoprazole 40 Mg Vial IVPUSH .BOLUS LIBAN Discontinued Medications Generic Name Dose Route Start Last Admin Trade Name Freq PRN Reason Stop Dose Admin Al Hydroxide/Mg Hydroxide 15 0 ml 12/01/20 22:25 12/01/20 22:33 ml/ Lidocaine HCl 15 ml PO 12/01/20 22:26 30 ml ONETIME ONE Administration Hydromorphone HCl 1 mg 12/01/20 23:09 12/01/20 23:19 Hydromorphone 1 Mg/Ml Syringe IVPUSH 12/01/20 23:10 1 mg ONETIME ONE Administration Metoclopramide HCl 10 mg 12/01/20 23:15 12/01/20 23:21 Metoclopramide 10 Mg/2 Ml Sdv IVPUSH 12/01/20 23:16 10 mg ONETIME ONE Administration Ondansetron HCl 4 mg 12/01/20 21:50 12/01/20 21:52 Ondansetron 4 Mg Tab.Dis PO 12/01/20 21:51 4 mg ONETIME ONE Administration Ondansetron HCl Confirm 12/01/20 21:52 12/01/20 22:28 Ondansetron 4 Mg Tab.Dis Administered 12/01/20 21:53 Not Given Dose 4 mg .ROUTE .STK-MED ONE Sodium Chloride 10 ml 12/01/20 23:16 12/01/20 23:42 Sodium Chloride 0.9% 10 Ml Syringe FLUSH 12/01/20 23:17 10 ml ONETIME ONE Administration - Radiology Interpretation Free Text/Narrative:: CT abd/pelvis with IV contrast-negative CT Results Date: 12/01/20 - Re-Assessments/Exams Free Text/Narrative Re-Assessment/Exam: 12/01/20 23:09 No benefit with GI cocktail po. Departure - Departure Time of Disposition: 01:00 Disposition: Admitted As Inpatient 67 Condition: Fair Clinical Impression: Elevated LFTs, Mild dehydration, Illicit drug use Acute pancreatitis Qualifiers: Pancreatitis type: unspecified pancreatitis type Acute pancreatitis complication: no infection or necrosis Qualified Code(s): K85.90 - Acute pancreatitis without necrosis or infection, unspecified - Discharge Information *PRESCRIPTION DRUG MONITORING PROGRAM REVIEWED*: Not Applicable *COPY OF PRESCRIPTION DRUG MONITORING REPORT IN PATIENT SHRUTHI: Not Applicable Referrals: PCP,None [Primary Care Provider] - Forms: ED Department Discharge Sepsis Event Note (ED) - Evaluation Sepsis Screening Result: No Definite Risk - Focused Exam Vital Signs: Vital Signs Temp Pulse Resp BP Pulse Ox 12/02/20 00:38 36.1 C 65 15 130/89 98 12/01/20 21:55 36.4 C 64 16 141/89 H 100 12/01/20 21:50 36.4 C 64 16 141/89 H 100 - My Orders Last 24 Hours: My Active Orders 12/01/20 22:30 Lactated Ringers [Ringers, Lactated] 1,000 ml IV ASDIRECTED 12/01/20 23:30 Iopamidol [Isovue-300 (61%)] 100 ml IV . DIRECTED Sodium Chloride 0.9% [Normal Saline] 76 ml IV ASDIRECTED 12/02/20 00:30 Lactated Ringers [Ringers, Lactated] 1,000 ml IV ASDIRECTED Pantoprazole [ProTONIX IV] 80 mg IVPUSH .BOLUS - Assessment/Plan Last 24 Hours: My Active Orders 12/01/20 22:30 Lactated Ringers [Ringers, Lactated] 1,000 ml IV ASDIRECTED 12/01/20 23:30 Iopamidol [Isovue-300 (61%)] 100 ml IV . DIRECTED Sodium Chloride 0.9% [Normal Saline] 76 ml IV ASDIRECTED 12/02/20 00:30 Lactated Ringers [Ringers, Lactated] 1,000 ml IV ASDIRECTED Pantoprazole [ProTONIX IV] 80 mg IVPUSH .BOLUS
[2020-12-01] MEDS ORDERED: HYDROmorphone 1 MG/ML Syringe IVPUSH ONE (23:09)
[2020-12-01] MEDS ORDERED: Metoclopramide 10 MG/2 ML SDV IVPUSH ONE (23:15)
[2020-12-01] MEDS ORDERED: Sodium Chloride 0.9% 10 ML Syringe FLUSH ONE (23:16)
[2020-12-01] MEDS ORDERED: Iopamidol 612 MG/ML 100 ML Bottle IV SCH (23:30)
--- NOTE | 2020-12-02 00:04 | CRLCT ---
INDICATION: Epigastric pain, elevated liver function tests and lipase TECHNIQUE: CT Abdomen and pelvis with i.v. contrast. Coronal and sagittal reformats were obtained. CONTRAST: 100 mL Isovue COMPARISON: None FINDINGS: Moderate image quality degradation noted due to beam hardening artifacts from scanning with the right arm by the patient`s side. Lower chest: Unremarkable. Liver: Unremarkable. Spleen: Unremarkable. Pancreas: Unremarkable. Gallbladder: Previous cholecystectomy noted without significant intra- or extrahepatic biliary ductal dilatation seen. Kidney: There is a 1 mm nonobstructing stone present in the midzone of the right kidney. Both kidneys are unremarkable in enhancement. Adrenal: Unremarkable. Bowel: Unremarkable. The appendix is normal in appearance and size. Vascular: Unremarkable. Lymph: Unremarkable. Peritoneum: Unremarkable. No pneumoperitoneum is seen. No significant ascites is noted. Pelvis: Unremarkable. Soft tissue: Unremarkable. Bone: Unremarkable for age. IMPRESSION: 1. Unremarkable with no CT correlate for the patient`s symptoms seen. Dictated by Thomas Hughes MD @ 12/02/2020 12:03:27 AM Please note that all CT scans at this facility use dose modulation, iterative reconstruction, and/or weight-based dosing when appropriate to reduce radiation dose to as low as reasonably achievable. Dictated by: Thomas Hughes MD @ 12/02/2020 00:03:34 (Electronically Signed)
[2020-12-02] MEDS ORDERED: Pantoprazole 40 MG Vial IVPUSH SCH (00:30)
[2020-12-02] MEDS ORDERED: Lactated Ringers 1,000 ML IV SCH (00:30)
[2020-12-02] MEDS ORDERED: HYDROmorphone 0.5 MG/0.5 ML Syringe IVPUSH ONE (01:09)
[2020-12-02] MEDS ORDERED: Nicotine 14 MG/24 Hr Patch TRDERM ONE (01:12)
[2020-12-02] MEDS ORDERED: Nicotine 14 MG/24 Hr Patch ONE (01:14)
--- NOTE | 2020-12-02 02:05 | PCM.HP.2 ---
H&P History of Present Illness - General Date of Service: 12/01/20 Admit Problem/Dx: Admission Diagnosis/Problem Admission Diagnosis/Problem Pancreatitis Source of Information: Patient, Provider, RN History Limitations: Reports: No Limitations - History of Present Illness Initial Comments - Free Text/Narative: chief complaint: abdominal pain since yesterday am. 40 yo male here with epigastric pain and nausea/vomiting that began a couple hrs ago. No fever. Last BM was yesterday. No blood in his emesis. Has a pHx of a cholecystectomy, no other abdominal surgeries. Was here earlier today for an OD of oxycodone and refused detox at that visit. Denies a hx of pancreas issues. Denies any ETOH consumption for a couple weeks Onset of Symptoms: Reports: Gradual Duration of Symptoms: Reports: Day(s):, Getting Worse Location: Reports: Chest, Abdomen, Radiates to Quality: Reports: Ache, Sharp, Stabbing Severity: Severe Improves with: Reports: None Worsens with: Reports: None Associated Symptoms: Reports: Chest Pain, Loss of Appetite, Nausea/Vomiting epigastric Pain Score (Numeric/FACES): 5 - Related Data Allergies/Adverse Reactions: Allergies Allergy/AdvReac Type Severity Reaction Status Date / Time No Known Allergies Allergy Verified 12/01/20 21:53 Home Medications: Home Meds Omeprazole Magnesium 20 mg PO DAILY 12/01/20 [History] Past Medical History HEENT History: Reports: Allergic Rhinitis Other HEENT History: hx ear infections recent tooth pain Respiratory History: Reports: Asthma Gastrointestinal History: Reports: GERD Musculoskeletal History: Reports: Back Pain, Chronic, Fracture Other Musculoskeletal History: r wrist fx Neurological History: Reports: Migraines Psychiatric History: Reports: Anxiety Endocrine/Metabolic History: Reports: Obesity/BMI 30+ Dermatologic History: Reports: Cellulitis, Other (See Below) Other Dermatologic History: MRSA from cellulitis - Infectious Disease History Infectious Disease History: Reports: Chicken Pox - Past Surgical History HEENT Surgical History: Reports: None Respiratory Surgical History: Reports: None GI Surgical History: Reports: Cholecystectomy, Hernia, Inguinal Endocrine Surgical History: Reports: None Neurological Surgical History: Reports: None Musculoskeletal Surgical History: Reports: None Dermatological Surgical History: Reports: None Social & Family History - Tobacco Use Tobacco Use Status *Q: Current Every Day Tobacco User Years of Tobacco use: 26 Packs/Tins Daily: 0.5 - Caffeine Use Caffeine Use: Reports: Soda - Alcohol Use Days Per Week of Alcohol Use: 1 Number of Drinks Per Day: 6 Total Drinks Per Week: 6 - Recreational Drug Use Recreational Drug Use: Yes Drug Use in Last 12 Months: Yes Recreational Drug Type: Reports: Marijuana/Hashish, Methamphetamine, Oxycodone Recreational Drug Use Frequency: Daily - Living Situation & Occupation Living situation: Reports: Single (lives in [facility] apartments across from the hospital with a roommate. has two children.) H&P Review of Systems - Review of Systems: Review Of Systems: See Below General: Reports: Malaise, Decreased Appetite, Other (abdominal pain) HEENT: Reports: No Symptoms Pulmonary: Reports: No Symptoms Cardiovascular: Reports: No Symptoms Gastrointestinal: Reports: Abdominal Pain, Decreased Appetite, Nausea, Vomiting Genitourinary: Reports: No Symptoms Musculoskeletal: Reports: Back Pain (upper mid back pain) Skin: Reports: No Symptoms Psychiatric: Reports: Other (drug addiction- last use of Meth and THC one day ago. ETOH a few weeks ago) Neurological: Reports: No Symptoms Hematologic/Lymphatic: Reports: No Symptoms Immunologic: Reports: No Symptoms Exam - Exam Exam: See Below - Vital Signs Vital Signs: Last Vital Signs Temp 97 F 12/02/20 00:38 Pulse 65 12/02/20 00:38 Resp 15 12/02/20 00:38 BP 130/89 12/02/20 00:38 Pulse Ox 98 12/02/20 00:38 Weight: 175 lb - Exam Quality Assessment: DVT Prophylaxis General: Alert, Oriented, Cooperative, Mild Distress HEENT: PERRLA, Hearing Intact, Mucosa Moist & [place], Nares Patent, Normal Nasal Septum, Posterior Pharynx Clear, Conjunctiva Clear, EOMI, EACs Clear, TMs Clear Neck: Supple, Trachea Midline, 2 Lungs: Clear to Auscultation, Normal Respiratory Effort Cardiovascular: Regular Rate, Regular Rhythm, Normal S1, Normal S2. No: Systolic Murmur, Diastolic Murmur GI/Abdominal Exam: Normal Bowel Sounds, Soft, No Distention, No Abnormal Bruit, Tender (epigastric area) (Male) Exam: Deferred Rectal (Males) Exam: Deferred Back Exam: Normal Inspection, Full Range of Motion Extremities: Normal Inspection, Normal Range of Motion, Non-Tender, No Pedal Edema, Normal Capillary Refill Peripheral Pulses: 2+: Radial (L), Radial (R) Skin: Warm, Dry, Intact Neurological: Cranial Nerves Intact, Reflexes Equal Bilateral, Strength Equal Bilateral Neuro Extensive - Mental Status: Alert, Oriented x3, Normal Mood/Affect, Normal Cognition, Memory Intact Neuro Extensive - Motor, Sensory, Reflexes: CN II-XII Intact, Normal Gait, Normal Reflexes Psychiatric: Alert, Normal Affect, Normal Mood - Patient Data Lab Results Last 24 hrs: Laboratory Results - last 24 hr 12/01/20 12/01/20 12/01/20 Range/Units 22:28 22:40 22:40 WBC 13.2 H (4.5-11.0) K/uL RBC 5.93 H (4.30-5.90) M/uL Hgb 17.2 H (12.0-15.0) g/dL Hct 50.6 (40.0-54.0) % MCV 85 (80-98) fL MCH 29 (27-31) pg MCHC 34 (32-36) % Plt Count 275 (150-400) K/uL Sodium 140 (140-148) mmol/L Potassium 4.1 (3.6-5.2) mmol/L Chloride 99 L (100-108) mmol/L Carbon Dioxide 29 (21-32) mmol/L Anion Gap 16.1 H (5.0-14.0) mmol/L BUN 18 (7-18) mg/dL Creatinine 1.0 (0.8-1.3) mg/dL Est Cr Clr Drug Dosing 95.95 mL/min Estimated GFR (MDRD) > 60 (>60) Glucose 113 H (74-106) mg/dL Calcium 9.3 (8.5-10.1) mg/dL Total Bilirubin 0.7 (0.2-1.0) mg/dL AST 190 H D (15-37) U/L ALT 269 H (12-78) U/L Alkaline Phosphatase 146 H (46-116) U/L Total Protein 7.6 (6.4-8.2) g/dL Albumin 4.0 (3.4-5.0) g/dL Globulin 3.6 H (2.3-3.5) g/dL Albumin/Globulin Ratio 1.1 L (1.2-2.2) Lipase 1775 H (73-393) U/L Urine Opiates Screen Negative (NEGATIVE) Ur Oxycodone Screen Negative (NEGATIVE) Urine Methadone Screen Negative (NEGATIVE) Ur Propoxyphene Screen Negative (NEGATIVE) Ur Barbiturates Screen Negative (NEGATIVE) Ur Tricyclics Screen Negative (NEGATIVE) Ur Phencyclidine Scrn Negative (NEGATIVE) Ur Amphetamine Screen Presumptive positive H (NEGATIVE) U Methamphetamines Scrn Presumptive positive H (NEGATIVE) Urine MDMA Screen Presumptive positive H (NEGATIVE) U Benzodiazepines Scrn Negative (NEGATIVE) U Cocaine Metab Screen Negative (NEGATIVE) U Marijuana (THC) Screen Presumptive positive H (NEGATIVE) Result Diagrams: 12/01/20 22:40 12/01/20 22:40 Sepsis Event Note - Evaluation Sepsis Screening Result: No Definite Risk - Focused Exam Vital Signs: Vital Signs Temp Pulse Resp BP Pulse Ox 12/02/20 00:38 97 F 65 15 130/89 98 12/01/20 21:55 97.5 F 64 16 141/89 H 100 12/01/20 21:50 97.5 F 64 16 141/89 H 100 - Problem List (1) Acute pancreatitis SNOMED Code(s): 569173668 ICD Code: K85.90 - ACUTE PANCREATITIS WITHOUT NECROSIS OR INFECTION, UNSP Status: Acute Priority: High Current Visit: Yes Qualifiers: Pancreatitis type: unspecified pancreatitis type Acute pancreatitis complication: no infection or necrosis Qualified Code(s): K85.90 - Acute pancreatitis without necrosis or infection, unspecified (2) Chemical dependency SNOMED Code(s): 346370816 ICD Code: F19.20 - OTHER PSYCHOACTIVE SUBSTANCE DEPENDENCE, UNCOMPLICATED Status: Acute Priority: High Current Visit: Yes (3) Tobacco abuse SNOMED Code(s): 385237697 ICD Code: Z72.0 - TOBACCO USE Status: Acute Priority: High Current Visit: Yes Problem List Initiated/Reviewed/Updated: Yes Orders Last 24hrs: Active Orders 24 hr Category Date Time Status Patient Status Manage Transfer [TRANSFER] Routine ADT 12/02/20 01:37 Active Iopamidol [[id number] (61%)] Med 12/01/20 23:30 Active 100 ml IV . DIRECTED Lactated Ringers [Ringers, Lactated] 1,000 ml Med 12/01/20 22:30 Active IV ASDIRECTED Lactated Ringers [Ringers, Lactated] 1,000 ml Med 12/02/20 00:30 Active IV ASDIRECTED Pantoprazole [ProTONIX IV] Med 12/02/20 00:30 Active 80 mg IVPUSH .BOLUS Sodium Chloride 0.9% [Normal Saline] 76 ml Med 12/01/20 23:30 Active IV ASDIRECTED Resuscitation Status Routine Resus Stat 12/02/20 01:39 Ordered Medication Orders Lactated Ringer's (Ringers, Lactated) 1,000 mls @ 1,000 mls/hr IV ASDIRECTED [facility] Last Admin: 12/01/20 22:33 Dose: 1,000 mls/hr Documented by: JULIANNA Sodium Chloride (Normal Saline) 76 mls @ 3 mls/sec IV ASDIRECTED [facility] Last Admin: 12/01/20 23:42 Dose: 3 mls/sec Documented by: JHOANA Lactated Ringer's (Ringers, Lactated) 1,000 mls @ 500 mls/hr IV ASDIRECTED [facility] Last Admin: 12/02/20 00:38 Dose: 500 mls/hr Documented by: JULIANNA Iopamidol (Iopamidol 612 Mg/Ml 100 Ml Bottle) 100 ml IV . DIRECTED [facility] Last Admin: 12/01/20 23:42 Dose: 100 ml Documented by: JHOANA Pantoprazole Sodium (Pantoprazole 40 Mg Vial) 80 mg IVPUSH .BOLUS [facility] Last Admin: 12/02/20 00:59 Dose: 80 mg Documented by: JULIANNA Assessment/Plan Comment:: ASSESSMENT AND PLAN- PANCREATITIS This is a 40 year old male seen in the Emergency Dept two times on 12/01/2020. The first visit in the morning for Oxycodone overdose- he was discharge. and this evening for abdominal pain. He reports his stomach has been painful for the past two days, this evening could no longer stand the pain and came to the ER for evaluation. Labs-Lipase 1775, elevated liver functions ast 190, alt 269, total protein 146. CBC normal range, urine drug screen + meth + THC Imaging- abdomen CT negative. He was given IV Protonix, IV Dilaudid, IV Zofran, pain was controlled. Admission was advised for treatment of pancreatitis. Mr. Galicia reluctant to be admitted but agrees to admission for management of pancreatitis. PANCREATITIS -IV fluids for hydration -NPO -Pain and nausea medication as needed -repeat Lipase level in am CHEMICAL DEPENDENCY reports daily use of Meth and THC. last use yesterday. denies injection of drugs- smokes Meth and THC. Not interested in treatment at this time. Overdose of narcotics today discharge at 1038 am- treated at [facility]. -monitor for withdrawal, agitation -treat as needed for agitation MAINTENANCE ISSUES -DVT prophylaxis- Lovenox 40 mg subcut daily -GI prophylaxis- PPI therapy -[place] catheter- not indicated -Nutrition- NPO -Nicotine dependence- Nicotine patch 14 mg daily CODE STATUS-FULL CODE ADMISSION STATUS-patient will be admitted to inpatient status, expect at least a 2 night hospital stay for evaluation and management of problems as outlined above. At the time of this admission I do not reasonably expected evaluation and management of this problem will require more than a 96 hour hospital stay. DISPOSITION-anticipate discharge to home after the hospital stay. PRIMARY CARE PROVIDER- no primary care listed HOSPITALIST- Dr. Booker - Mortality Measure Prognosis:: Good - Mortality Measure Prognosis:: Good
[2020-12-02] MEDS ORDERED: Ondansetron 4 MG/2 ML SDV IV PRN (02:15)
[2020-12-02] MEDS ORDERED: Ondansetron 4 MG Tab.DIS PO PRN (02:15)
[2020-12-02] MEDS ORDERED: LORazepam 2 MG/ML SDV IV PRN ×2 (02:15→12:04)
[2020-12-02] MEDS ORDERED: Docusate Sodium 100 MG Cap PO PRN (02:15)
[2020-12-02] MEDS ORDERED: Acetaminophen 325 MG Tab PO PRN (02:15)
[2020-12-02] MEDS ORDERED: Albuterol 0.083% 2.5 MG/3 ML Neb Soln NEB PRN (02:15)
[2020-12-02] MEDS: oxyCODONE 5 MG Tab PO PRN ×3 (02:31→13:26)
[2020-12-02] MEDS: HYDROmorphone 1 MG/ML Syringe IVPUSH PRN ×4 (02:32→11:54)
[2020-12-02] MEDS: Sodium Chloride 0.9% 1,000 ML IV SCH ×2 (02:37→11:51)
[2020-12-02] MEDS ORDERED: Pantoprazole 40 MG Vial IV SCH (09:00)
[2020-12-02] MEDS ORDERED: Enoxaparin 40 MG/0.4 ML Syringe SUBCUT SCH (09:00)
--- NOTE | 2020-12-02 12:10 | PCM.PN ---
- General Info Date of Service: 12/02/20 Subjective Update: Mr. Galicia is a 40-year-old gentleman who was admitted through the emergency department last night with abdominal pain, nausea, and vomiting secondary to acute pancreatitis. He denies recent alcohol use and liver enzymes were not significantly elevated. He does have a recent history of narcotic abuse, marijuana use, and methamphetamine use. He was seen in the emergency department earlier in the day because of a narcotic overdose. Continues to experience abdominal pain lipase level has increased from admission. - Review of Systems General: Reports: Weakness, Fatigue. Denies: Fever, Chills Pulmonary: Reports: No Symptoms Cardiovascular: Reports: No Symptoms Gastrointestinal: Reports: Abdominal Pain, Decreased Appetite, Nausea. Denies: Diarrhea, Difficulty Swallowing, Hematochezia, Melena, Vomiting - Patient Data Vitals - Most Recent: Last Vital Signs Temp 98 F 12/02/20 09:09 Pulse 81 12/02/20 09:09 Resp 18 12/02/20 09:09 BP 106/71 12/02/20 09:09 Pulse Ox 95 12/02/20 09:09 Weight - Most Recent: 175 lb 0.012 oz I&O - Last 24 Hours: Intake & Output 12/01/20 12/02/20 12/02/20 22:59 06:59 14:59 Intake Total 1292 681 Balance 1292 681 Lab Results Last 24 Hours: Laboratory Results - last 24 hr 12/01/20 12/01/20 12/01/20 Range/Units 22:28 22:40 22:40 WBC 13.2 H (4.5-11.0) K/uL RBC 5.93 H (4.30-5.90) M/uL Hgb 17.2 H (12.0-15.0) g/dL Hct 50.6 (40.0-54.0) % MCV 85 (80-98) fL MCH 29 (27-31) pg MCHC 34 (32-36) % Plt Count 275 (150-400) K/uL Neut % (Auto) (36-66) % Lymph % (Auto) (24-44) % Curry % (Auto) (2-6) % Eos % (Auto) (2-4) % Baso % (Auto) (0-1) % Sodium 140 (140-148) mmol/L Potassium 4.1 (3.6-5.2) mmol/L Chloride 99 L (100-108) mmol/L Carbon Dioxide 29 (21-32) mmol/L Anion Gap 16.1 H (5.0-14.0) mmol/L BUN 18 (7-18) mg/dL Creatinine 1.0 (0.8-1.3) mg/dL Est Cr Clr Drug Dosing 95.95 mL/min Estimated GFR (MDRD) > 60 (>60) Glucose 113 H (74-106) mg/dL Calcium 9.3 (8.5-10.1) mg/dL Total Bilirubin 0.7 (0.2-1.0) mg/dL AST 190 H D (15-37) U/L ALT 269 H (12-78) U/L Alkaline Phosphatase 146 H (46-116) U/L Total Protein 7.6 (6.4-8.2) g/dL Albumin 4.0 (3.4-5.0) g/dL Globulin 3.6 H (2.3-3.5) g/dL Albumin/Globulin Ratio 1.1 L (1.2-2.2) Lipase 1775 H (73-393) U/L Urine Opiates Screen Negative (NEGATIVE) Ur Oxycodone Screen Negative (NEGATIVE) Urine Methadone Screen Negative (NEGATIVE) Ur Propoxyphene Screen Negative (NEGATIVE) Ur Barbiturates Screen Negative (NEGATIVE) Ur Tricyclics Screen Negative (NEGATIVE) Ur Phencyclidine Scrn Negative (NEGATIVE) Ur Amphetamine Screen Presumptive positive H (NEGATIVE) U Methamphetamines Scrn Presumptive positive H (NEGATIVE) Urine MDMA Screen Presumptive positive H (NEGATIVE) U Benzodiazepines Scrn Negative (NEGATIVE) U Cocaine Metab Screen Negative (NEGATIVE) U Marijuana (THC) Screen Presumptive positive H (NEGATIVE) 12/02/20 12/02/20 Range/Units 05:53 05:53 WBC 13.3 H (4.5-11.0) K/uL RBC 5.08 (4.30-5.90) M/uL Hgb 15.2 H D (12.0-15.0) g/dL Hct 44.1 (40.0-54.0) % MCV 87 (80-98) fL MCH 30 (27-31) pg MCHC 35 (32-36) % Plt Count 237 (150-400) K/uL Neut % (Auto) 72 H (36-66) % Lymph % (Auto) 15 L (24-44) % Curry % (Auto) 11 H (2-6) % Eos % (Auto) 1 L (2-4) % Baso % (Auto) 0 (0-1) % Sodium 141 (140-148) mmol/L Potassium 4.0 (3.6-5.2) mmol/L Chloride 102 (100-108) mmol/L Carbon Dioxide 31 (21-32) mmol/L Anion Gap 8.4 (5.0-14.0) mmol/L BUN 14 (7-18) mg/dL Creatinine 1.0 (0.8-1.3) mg/dL Est Cr Clr Drug Dosing 95.95 mL/min Estimated GFR (MDRD) > 60 (>60) Glucose 93 (74-106) mg/dL Calcium 8.9 (8.5-10.1) mg/dL Total Bilirubin (0.2-1.0) mg/dL AST (15-37) U/L ALT (12-78) U/L Alkaline Phosphatase (46-116) U/L Total Protein (6.4-8.2) g/dL Albumin (3.4-5.0) g/dL Globulin (2.3-3.5) g/dL Albumin/Globulin Ratio (1.2-2.2) Lipase 2168 H (73-393) U/L Urine Opiates Screen (NEGATIVE) Ur Oxycodone Screen (NEGATIVE) Urine Methadone Screen (NEGATIVE) Ur Propoxyphene Screen (NEGATIVE) Ur Barbiturates Screen (NEGATIVE) Ur Tricyclics Screen (NEGATIVE) Ur Phencyclidine Scrn (NEGATIVE) Ur Amphetamine Screen (NEGATIVE) U Methamphetamines Scrn (NEGATIVE) Urine MDMA Screen (NEGATIVE) U Benzodiazepines Scrn (NEGATIVE) U Cocaine Metab Screen (NEGATIVE) U Marijuana (THC) Screen (NEGATIVE) Med Orders - Current: Current Medications Acetaminophen (Acetaminophen 325 Mg Tab) 650 mg PO Q4H PRN PRN Reason: Pain (Mild 1-3)/fever Albuterol (Albuterol 0.083% 2.5 Mg/3 Ml Neb Soln) 2.5 mg NEB Q4H PRN PRN Reason: Shortness Of Breath/wheezing Docusate Sodium (Docusate Sodium 100 Mg Cap) 100 mg PO BID PRN PRN Reason: Constipation Enoxaparin Sodium (Enoxaparin 40 Mg/0.4 Ml Syringe) 40 mg SUBCUT DAILY [facility] Last Admin: 12/02/20 09:03 Dose: 40 mg Documented by: Hydromorphone HCl (Hydromorphone 1 Mg/Ml Syringe) 1 mg IVPUSH Q2H PRN PRN Reason: Abdominal Pain Last Admin: 12/02/20 11:54 Dose: 1 mg Documented by: Sodium Chloride (Normal Saline) 1,000 mls @ 125 mls/hr IV ASDIRECTED [facility] Last Admin: 12/02/20 11:51 Dose: 125 mls/hr Documented by: Lorazepam (Lorazepam 2 Mg/Ml Sdv) 0.5 mg IV Q4H PRN PRN Reason: Nausea/Vomiting Nicotine (Nicotine 14 Mg/24 Hr Patch) 14 mg TRDERM DAILY [facility] Ondansetron HCl (Ondansetron 4 Mg Tab.Dis) 4 mg PO Q6H PRN PRN Reason: Nausea able to take PO Ondansetron HCl (Ondansetron 4 Mg/2 Ml Sdv) 4 mg IV Q4H PRN PRN Reason: Nausea/Vomiting Oxycodone HCl (Oxycodone 5 Mg Tab) 10 mg PO Q4H PRN PRN Reason: Pain (moderate 4-6) Last Admin: 12/02/20 08:57 Dose: 10 mg Documented by: Pantoprazole Sodium (Pantoprazole 40 Mg Vial) 40 mg IV DAILY [facility] Last Admin: 12/02/20 09:03 Dose: 40 mg Documented by: Discontinued Medications Al Hydroxide/Mg Hydroxide 15 (ml/ Lidocaine HCl 15 ml) 0 ml PO ONETIME ONE Stop: 12/01/20 22:26 Last Admin: 12/01/20 22:33 Dose: 30 ml Documented by: Hydromorphone HCl (Hydromorphone 1 Mg/Ml Syringe) 1 mg IVPUSH ONETIME ONE Stop: 12/01/20 23:10 Last Admin: 12/01/20 23:19 Dose: 1 mg Documented by: Hydromorphone HCl (Hydromorphone 0.5 Mg/0.5 Ml Syringe) 0.5 mg IVPUSH ONETIME ONE Stop: 12/02/20 01:10 Last Admin: 12/02/20 01:15 Dose: 0.5 mg Documented by: Lactated Ringer's (Ringers, Lactated) 1,000 mls @ 1,000 mls/hr IV ASDIRECTED [facility] Last Admin: 12/01/20 22:33 Dose: 1,000 mls/hr Documented by: Sodium Chloride (Normal Saline) 76 mls @ 3 mls/sec IV ASDIRECTED [facility] Last Admin: 12/01/20 23:42 Dose: 3 mls/sec Documented by: Lactated Ringer's (Ringers, Lactated) 1,000 mls @ 500 mls/hr IV ASDIRECTED [facility] Last Admin: 12/02/20 00:38 Dose: 500 mls/hr Documented by: Iopamidol (Iopamidol 612 Mg/Ml 100 Ml Bottle) 100 ml IV . DIRECTED [facility] Last Admin: 12/01/20 23:42 Dose: 100 ml Documented by: Lorazepam (Lorazepam 2 Mg/Ml Sdv) 1 mg IV Q6H PRN PRN Reason: Nausea/Vomiting Metoclopramide HCl (Metoclopramide 10 Mg/2 Ml Sdv) 10 mg IVPUSH ONETIME ONE Stop: 12/01/20 23:16 Last Admin: 12/01/20 23:21 Dose: 10 mg Documented by: Nicotine (Nicotine 14 Mg/24 Hr Patch) 14 mg TRDERM ONETIME ONE Stop: 12/02/20 01:13 Last Admin: 12/02/20 01:15 Dose: 14 mg Documented by: Nicotine (Nicotine 14 Mg/24 Hr Patch) Confirm Administered Dose 14 mg .ROUTE .STK-MED ONE Stop: 12/02/20 01:15 Last Admin: 12/02/20 01:54 Dose: Not Given Documented by: Ondansetron HCl (Ondansetron 4 Mg Tab.Dis) 4 mg PO ONETIME ONE Stop: 12/01/20 21:51 Last Admin: 12/01/20 21:52 Dose: 4 mg Documented by: Ondansetron HCl (Ondansetron 4 Mg Tab.Dis) Confirm Administered Dose 4 mg .ROUTE .STK-MED ONE Stop: 12/01/20 21:53 Last Admin: 12/01/20 22:28 Dose: Not Given Documented by: Pantoprazole Sodium (Pantoprazole 40 Mg Vial) 80 mg IVPUSH .[facility] Last Admin: 12/02/20 00:59 Dose: 80 mg Documented by: Sodium Chloride (Sodium Chloride 0.9% 10 Ml Syringe) 10 ml FLUSH ONETIME ONE Stop: 12/01/20 23:17 Last Admin: 12/01/20 23:42 Dose: 10 ml Documented by: - Exam General: Alert, Oriented, Cooperative, Moderate Distress Lungs: Clear to Auscultation, Normal Respiratory Effort Cardiovascular: Regular Rate, Regular Rhythm, No Murmurs GI/Abdominal Exam: Soft, No Organomegaly, Distended, Tender. No: Guarding, Rigid, Rebound Extremities: Non-Tender, No Pedal Edema - Patient Data Lab Results Last 24 hrs: Laboratory Results - last 24 hr 12/01/20 12/01/20 12/01/20 Range/Units 22:28 22:40 22:40 WBC 13.2 H (4.5-11.0) K/uL RBC 5.93 H (4.30-5.90) M/uL Hgb 17.2 H (12.0-15.0) g/dL Hct 50.6 (40.0-54.0) % MCV 85 (80-98) fL MCH 29 (27-31) pg MCHC 34 (32-36) % Plt Count 275 (150-400) K/uL Neut % (Auto) (36-66) % Lymph % (Auto) (24-44) % Curry % (Auto) (2-6) % Eos % (Auto) (2-4) % Baso % (Auto) (0-1) % Sodium 140 (140-148) mmol/L Potassium 4.1 (3.6-5.2) mmol/L Chloride 99 L (100-108) mmol/L Carbon Dioxide 29 (21-32) mmol/L Anion Gap 16.1 H (5.0-14.0) mmol/L BUN 18 (7-18) mg/dL Creatinine 1.0 (0.8-1.3) mg/dL Est Cr Clr Drug Dosing 95.95 mL/min Estimated GFR (MDRD) > 60 (>60) Glucose 113 H (74-106) mg/dL Calcium 9.3 (8.5-10.1) mg/dL Total Bilirubin 0.7 (0.2-1.0) mg/dL AST 190 H D (15-37) U/L ALT 269 H (12-78) U/L Alkaline Phosphatase 146 H (46-116) U/L Total Protein 7.6 (6.4-8.2) g/dL Albumin 4.0 (3.4-5.0) g/dL Globulin 3.6 H (2.3-3.5) g/dL Albumin/Globulin Ratio 1.1 L (1.2-2.2) Lipase 1775 H (73-393) U/L Urine Opiates Screen Negative (NEGATIVE) Ur Oxycodone Screen Negative (NEGATIVE) Urine Methadone Screen Negative (NEGATIVE) Ur Propoxyphene Screen Negative (NEGATIVE) Ur Barbiturates Screen Negative (NEGATIVE) Ur Tricyclics Screen Negative (NEGATIVE) Ur Phencyclidine Scrn Negative (NEGATIVE) Ur Amphetamine Screen Presumptive positive H (NEGATIVE) U Methamphetamines Scrn Presumptive positive H (NEGATIVE) Urine MDMA Screen Presumptive positive H (NEGATIVE) U Benzodiazepines Scrn Negative (NEGATIVE) U Cocaine Metab Screen Negative (NEGATIVE) U Marijuana (THC) Screen Presumptive positive H (NEGATIVE) 12/02/20 12/02/20 Range/Units 05:53 05:53 WBC 13.3 H (4.5-11.0) K/uL RBC 5.08 (4.30-5.90) M/uL Hgb 15.2 H D (12.0-15.0) g/dL Hct 44.1 (40.0-54.0) % MCV 87 (80-98) fL MCH 30 (27-31) pg MCHC 35 (32-36) % Plt Count 237 (150-400) K/uL Neut % (Auto) 72 H (36-66) % Lymph % (Auto) 15 L (24-44) % Curry % (Auto) 11 H (2-6) % Eos % (Auto) 1 L (2-4) % Baso % (Auto) 0 (0-1) % Sodium 141 (140-148) mmol/L Potassium 4.0 (3.6-5.2) mmol/L Chloride 102 (100-108) mmol/L Carbon Dioxide 31 (21-32) mmol/L Anion Gap 8.4 (5.0-14.0) mmol/L BUN 14 (7-18) mg/dL Creatinine 1.0 (0.8-1.3) mg/dL Est Cr Clr Drug Dosing 95.95 mL/min Estimated GFR (MDRD) > 60 (>60) Glucose 93 (74-106) mg/dL Calcium 8.9 (8.5-10.1) mg/dL Total Bilirubin (0.2-1.0) mg/dL AST (15-37) U/L ALT (12-78) U/L Alkaline Phosphatase (46-116) U/L Total Protein (6.4-8.2) g/dL Albumin (3.4-5.0) g/dL Globulin (2.3-3.5) g/dL Albumin/Globulin Ratio (1.2-2.2) Lipase 2168 H (73-393) U/L Urine Opiates Screen (NEGATIVE) Ur Oxycodone Screen (NEGATIVE) Urine Methadone Screen (NEGATIVE) Ur Propoxyphene Screen (NEGATIVE) Ur Barbiturates Screen (NEGATIVE) Ur Tricyclics Screen (NEGATIVE) Ur Phencyclidine Scrn (NEGATIVE) Ur Amphetamine Screen (NEGATIVE) U Methamphetamines Scrn (NEGATIVE) Urine MDMA Screen (NEGATIVE) U Benzodiazepines Scrn (NEGATIVE) U Cocaine Metab Screen (NEGATIVE) U Marijuana (THC) Screen (NEGATIVE) Result Diagrams: 12/02/20 05:53 12/02/20 05:53 Sepsis Event Note - Evaluation Sepsis Screening Result: No Definite Risk - Focused Exam Vital Signs: Vital Signs Temp Pulse Resp BP Pulse Ox 12/02/20 09:09 98 F 81 18 106/71 95 12/02/20 07:29 95 12/02/20 03:00 96 12/02/20 02:19 97.8 F 96 15 132/76 96 12/02/20 00:38 97 F 65 15 130/89 98 - Problem List Review Problem List Initiated/Reviewed/Updated: Yes - My Orders Last 24 Hours: My Active Orders 12/02/20 12:04 LORazepam [Ativan] 0.5 mg IV Q4H PRN 12/03/20 05:00 CBC WITH AUTO DIFF [HEME] Timed COMPREHENSIVE METABOLIC PN,CMP [CHEM] Timed LIPASE [CHEM] Timed - Plan Plan:: ASSESSMENT AND PLAN PANCREATITIS-specific etiology not apparent denies recent alcohol use, liver enzymes are essentially normal. -IV fluids for hydration -NPO -Pain and nausea medication as needed -repeat Lipase level in am CHEMICAL DEPENDENCY reports daily use of Meth and THC. last use yesterday. denies injection of drugs- smokes Meth and THC. Not interested in treatment at this time. Overdose of narcotics yesterday -monitor for withdrawal, agitation -treat as needed for agitation MAINTENANCE ISSUES -DVT prophylaxis- Lovenox 40 mg subcut daily -GI prophylaxis- PPI therapy -[place] catheter- not indicated -Nutrition- NPO -Nicotine dependence- Nicotine patch 14 mg daily CODE STATUS-FULL CODE ADMISSION STATUS-patient will be admitted to inpatient status, expect at least a 2 night hospital stay for evaluation and management of problems as outlined above. At the time of this admission I do not reasonably expected evaluation and management of this problem will require more than a 96 hour hospital stay. DISPOSITION-anticipate discharge to home after the hospital stay. PRIMARY CARE PROVIDER- no primary care listed HOSPITALIST- Dr. Booker
[2020-12-02 13:23] VITALS: BP 101/64; PULSE 83
--- NOTE | 2020-12-02 16:03 | PCM.DCSUM1 ---
Discharge Summary - Hospital Course Brief History: Mr. Galicia is a 40-year-old gentleman who was admitted through the emergency department with abdominal pain with nausea and vomiting secondary to acute pancreatitis. - Discharge Data Discharge Date: 12/02/20 Discharge Disposition: Against Medical Advice 07 Condition: Poor - Referral to Home Health Primary Care Physician: PCP None - Discharge Diagnosis/Problem(s) (1) Acute pancreatitis SNOMED Code(s): 299027929 ICD Code: K85.90 - ACUTE PANCREATITIS WITHOUT NECROSIS OR INFECTION, UNSP Status: Acute Priority: High Qualifiers: Pancreatitis type: unspecified pancreatitis type Acute pancreatitis complication: no infection or necrosis Qualified Code(s): K85.90 - Acute pancreatitis without necrosis or infection, unspecified (2) Illicit drug use SNOMED Code(s): 768547746 ICD Code: F19.90 - OTHER PSYCHOACTIVE SUBSTANCE USE, UNSPECIFIED, UNCOMPLI CATED Status: Acute (3) Chemical dependency SNOMED Code(s): 079519509 ICD Code: F19.20 - OTHER PSYCHOACTIVE SUBSTANCE DEPENDENCE, UNCOMPLICATED Status: Acute Priority: High - Patient Summary/Data Hospital Course: Mr. Galicia is a 40-year-old gentleman who was admitted through the emergency department with abdominal pain, nausea, and vomiting secondary to acute pancreatitis. He had presented to the emergency room earlier in the day by EMS with a narcotic overdose he recovered from that and was discharged to home. He returned later in the evening with severe abdominal pain and was found to have evidence of pancreatitis on laboratory testing with an elevated lipase level. He was admitted to the hospital and given IV fluids for hydration. He was kept n.p.o. because of his ongoing pain. He was given pain medication and medication as needed for nausea. By the following morning he continued to experience significant abdominal pain and had a further increase in his lipase level. IV fluids were continued and he was kept n.p.o. because of ongoing pain and increase in the lipase level. Later in the afternoon he demanded that he be allowed to eat regular food or he was leaving AGAINST MEDICAL ADVICE. Advancement of diet was felt to be medically contraindicated because of his increased pain and lipase level. Unfortunately he did decide to leave AGAINST MEDICAL ADVICE. - Discharge Plan *PRESCRIPTION DRUG MONITORING PROGRAM REVIEWED*: Not Applicable *COPY OF PRESCRIPTION DRUG MONITORING REPORT IN PATIENT SHRUTHI: Not Applicable Home Medications: Home Meds Omeprazole Magnesium 20 mg PO DAILY 12/01/20 [History] - Discharge Summary/Plan Comment DC Time >30 min.: No - Patient Data Vitals - Most Recent: Last Vital Signs Temp 97.5 F 12/02/20 13:22 Pulse 83 12/02/20 13:22 Resp 16 12/02/20 13:22 BP 101/64 12/02/20 13:22 Pulse Ox 94 L 12/02/20 13:37 Weight - Most Recent: 175 lb 0.012 oz I&O - Last 24 hours: Intake & Output 12/02/20 12/02/20 12/02/20 06:59 14:59 22:59 Intake Total 1292 681 Balance 1292 681 Lab Results - Last 24 hrs: Laboratory Results - last 24 hr 12/01/20 12/01/20 12/01/20 Range/Units 22:28 22:40 22:40 WBC 13.2 H (4.5-11.0) K/uL RBC 5.93 H (4.30-5.90) M/uL Hgb 17.2 H (12.0-15.0) g/dL Hct 50.6 (40.0-54.0) % MCV 85 (80-98) fL MCH 29 (27-31) pg MCHC 34 (32-36) % Plt Count 275 (150-400) K/uL Neut % (Auto) (36-66) % Lymph % (Auto) (24-44) % [place] % (Auto) (2-6) % Eos % (Auto) (2-4) % Baso % (Auto) (0-1) % Sodium 140 (140-148) mmol/L Potassium 4.1 (3.6-5.2) mmol/L Chloride 99 L (100-108) mmol/L Carbon Dioxide 29 (21-32) mmol/L Anion Gap 16.1 H (5.0-14.0) mmol/L BUN 18 (7-18) mg/dL Creatinine 1.0 (0.8-1.3) mg/dL Est Cr Clr Drug Dosing 95.95 mL/min Estimated GFR (MDRD) > 60 (>60) Glucose 113 H (74-106) mg/dL Calcium 9.3 (8.5-10.1) mg/dL Total Bilirubin 0.7 (0.2-1.0) mg/dL AST 190 H D (15-37) U/L ALT 269 H (12-78) U/L Alkaline Phosphatase 146 H (46-116) U/L Total Protein 7.6 (6.4-8.2) g/dL Albumin 4.0 (3.4-5.0) g/dL Globulin 3.6 H (2.3-3.5) g/dL Albumin/Globulin Ratio 1.1 L (1.2-2.2) Lipase 1775 H (73-393) U/L Urine Opiates Screen Negative (NEGATIVE) Ur Oxycodone Screen Negative (NEGATIVE) Urine Methadone Screen Negative (NEGATIVE) Ur Propoxyphene Screen Negative (NEGATIVE) Ur Barbiturates Screen Negative (NEGATIVE) Ur Tricyclics Screen Negative (NEGATIVE) Ur Phencyclidine Scrn Negative (NEGATIVE) Ur Amphetamine Screen Presumptive positive H (NEGATIVE) U Methamphetamines Scrn Presumptive positive H (NEGATIVE) Urine MDMA Screen Presumptive positive H (NEGATIVE) U Benzodiazepines Scrn Negative (NEGATIVE) U Cocaine Metab Screen Negative (NEGATIVE) U Marijuana (THC) Screen Presumptive positive H (NEGATIVE) 12/02/20 12/02/20 Range/Units 05:53 05:53 WBC 13.3 H (4.5-11.0) K/uL RBC 5.08 (4.30-5.90) M/uL Hgb 15.2 H D (12.0-15.0) g/dL Hct 44.1 (40.0-54.0) % MCV 87 (80-98) fL MCH 30 (27-31) pg MCHC 35 (32-36) % Plt Count 237 (150-400) K/uL Neut % (Auto) 72 H (36-66) % Lymph % (Auto) 15 L (24-44) % [place] % (Auto) 11 H (2-6) % Eos % (Auto) 1 L (2-4) % Baso % (Auto) 0 (0-1) % Sodium 141 (140-148) mmol/L Potassium 4.0 (3.6-5.2) mmol/L Chloride 102 (100-108) mmol/L Carbon Dioxide 31 (21-32) mmol/L Anion Gap 8.4 (5.0-14.0) mmol/L BUN 14 (7-18) mg/dL Creatinine 1.0 (0.8-1.3) mg/dL Est Cr Clr Drug Dosing 95.95 mL/min Estimated GFR (MDRD) > 60 (>60) Glucose 93 (74-106) mg/dL Calcium 8.9 (8.5-10.1) mg/dL Total Bilirubin (0.2-1.0) mg/dL AST (15-37) U/L ALT (12-78) U/L Alkaline Phosphatase (46-116) U/L Total Protein (6.4-8.2) g/dL Albumin (3.4-5.0) g/dL Globulin (2.3-3.5) g/dL Albumin/Globulin Ratio (1.2-2.2) Lipase 2168 H (73-393) U/L Urine Opiates Screen (NEGATIVE) Ur Oxycodone Screen (NEGATIVE) Urine Methadone Screen (NEGATIVE) Ur Propoxyphene Screen (NEGATIVE) Ur Barbiturates Screen (NEGATIVE) Ur Tricyclics Screen (NEGATIVE) Ur Phencyclidine Scrn (NEGATIVE) Ur Amphetamine Screen (NEGATIVE) U Methamphetamines Scrn (NEGATIVE) Urine MDMA Screen (NEGATIVE) U Benzodiazepines Scrn (NEGATIVE) U Cocaine Metab Screen (NEGATIVE) U Marijuana (THC) Screen (NEGATIVE) Med Orders - Current: Current Medications Discontinued Medications Acetaminophen (Acetaminophen 325 Mg Tab) 650 mg PO Q4H PRN PRN Reason: Pain (Mild 1-3)/fever Albuterol (Albuterol 0.083% 2.5 Mg/3 Ml Neb Soln) 2.5 mg NEB Q4H PRN PRN Reason: Shortness Of Breath/wheezing Al Hydroxide/Mg Hydroxide 15 (ml/ Lidocaine HCl 15 ml) 0 ml PO ONETIME ONE Stop: 12/01/20 22:26 Last Admin: 12/01/20 22:33 Dose: 30 ml Documented by: Docusate Sodium (Docusate Sodium 100 Mg Cap) 100 mg PO BID PRN PRN Reason: Constipation Enoxaparin Sodium (Enoxaparin 40 Mg/0.4 Ml Syringe) 40 mg SUBCUT DAILY [facility] Last Admin: 12/02/20 09:03 Dose: 40 mg Documented by: Hydromorphone HCl (Hydromorphone 1 Mg/Ml Syringe) 1 mg IVPUSH ONETIME ONE Stop: 12/01/20 23:10 Last Admin: 12/01/20 23:19 Dose: 1 mg Documented by: Hydromorphone HCl (Hydromorphone 0.5 Mg/0.5 Ml Syringe) 0.5 mg IVPUSH ONETIME ONE Stop: 12/02/20 01:10 Last Admin: 12/02/20 01:15 Dose: 0.5 mg Documented by: Hydromorphone HCl (Hydromorphone 1 Mg/Ml Syringe) 1 mg IVPUSH Q2H PRN PRN Reason: Abdominal Pain Last Admin: 12/02/20 11:54 Dose: 1 mg Documented by: Lactated Ringer's (Ringers, Lactated) 1,000 mls @ 1,000 mls/hr IV ASDIRECTED [facility] Last Admin: 12/01/20 22:33 Dose: 1,000 mls/hr Documented by: Sodium Chloride (Normal Saline) 76 mls @ 3 mls/sec IV ASDIRECTED [facility] Last Admin: 12/01/20 23:42 Dose: 3 mls/sec Documented by: Lactated Ringer's (Ringers, Lactated) 1,000 mls @ 500 mls/hr IV ASDIRECTED [facility] Last Admin: 12/02/20 00:38 Dose: 500 mls/hr Documented by: Sodium Chloride (Normal Saline) 1,000 mls @ 125 mls/hr IV ASDIRECTED [facility] Last Admin: 12/02/20 11:51 Dose: 125 mls/hr Documented by: Iopamidol (Iopamidol 612 Mg/Ml 100 Ml Bottle) 100 ml IV . DIRECTED [facility] Last Admin: 12/01/20 23:42 Dose: 100 ml Documented by: Lorazepam (Lorazepam 2 Mg/Ml Sdv) 1 mg IV Q6H PRN PRN Reason: Nausea/Vomiting Lorazepam (Lorazepam 2 Mg/Ml Sdv) 0.5 mg IV Q4H PRN PRN Reason: Nausea/Vomiting Metoclopramide HCl (Metoclopramide 10 Mg/2 Ml Sdv) 10 mg IVPUSH ONETIME ONE Stop: 12/01/20 23:16 Last Admin: 12/01/20 23:21 Dose: 10 mg Documented by: Nicotine (Nicotine 14 Mg/24 Hr Patch) 14 mg TRDERM ONETIME ONE Stop: 12/02/20 01:13 Last Admin: 12/02/20 01:15 Dose: 14 mg Documented by: Nicotine (Nicotine 14 Mg/24 Hr Patch) Confirm Administered Dose 14 mg .ROUTE .STK-MED ONE Stop: 12/02/20 01:15 Last Admin: 12/02/20 01:54 Dose: Not Given Documented by: Nicotine (Nicotine 14 Mg/24 Hr Patch) 14 mg TRDERM DAILY [facility] Ondansetron HCl (Ondansetron 4 Mg Tab.Dis) 4 mg PO ONETIME ONE Stop: 12/01/20 21:51 Last Admin: 12/01/20 21:52 Dose: 4 mg Documented by: Ondansetron HCl (Ondansetron 4 Mg Tab.Dis) Confirm Administered Dose 4 mg .ROUTE .STK-MED ONE Stop: 12/01/20 21:53 Last Admin: 12/01/20 22:28 Dose: Not Given Documented by: Ondansetron HCl (Ondansetron 4 Mg Tab.Dis) 4 mg PO Q6H PRN PRN Reason: Nausea able to take PO Ondansetron HCl (Ondansetron 4 Mg/2 Ml Sdv) 4 mg IV Q4H PRN PRN Reason: Nausea/Vomiting Oxycodone HCl (Oxycodone 5 Mg Tab) 10 mg PO Q4H PRN PRN Reason: Pain (moderate 4-6) Last Admin: 12/02/20 13:26 Dose: 10 mg Documented by: Pantoprazole Sodium (Pantoprazole 40 Mg Vial) 80 mg IVPUSH .BOLUS [facility] Last Admin: 12/02/20 00:59 Dose: 80 mg Documented by: Pantoprazole Sodium (Pantoprazole 40 Mg Vial) 40 mg IV DAILY [facility] Last Admin: 12/02/20 09:03 Dose: 40 mg Documented by: Sodium Chloride (Sodium Chloride 0.9% 10 Ml Syringe) 10 ml FLUSH ONETIME ONE Stop: 12/01/20 23:17 Last Admin: 12/01/20 23:42 Dose: 10 ml Documented by: - Exam General: Denies: Cooperative (Patient left AMA)
[2020-12-03] MEDS ORDERED: HYDROmorphone 1 MG/ML Syringe ONE (03:15)
[2020-12-03] MEDS ORDERED: Nicotine 14 MG/24 Hr Patch TRDERM SCH (09:00)
== END 2020-12-02 15:49 | disposition left against medical advice (07) | DRG 439 ==
LOC: JP.ED 21:37 → JP.MS 12-02 01:37
PROVIDERS: ADMIT Hospitalist; ATTEND Hospitalist
DX: K85.90 Acute pancreatitis without necrosis or infection, unspecified (principal); F19.20 Other psychoactive substance dependence, uncomplicated; J45.909 Unspecified asthma, uncomplicated; K21.9 Gastro-esophageal reflux disease without esophagitis; G89.29 Other chronic pain; M54.9 Dorsalgia, unspecified; G43.909 Migraine, unspecified, not intractable, without status migrainosus; F41.9 Anxiety disorder, unspecified; E66.9 Obesity, unspecified; F17.210 Nicotine dependence, cigarettes, uncomplicated; Z86.14 Personal history of Methicillin resistant Staphylococcus aureus infection; Z90.49 Acquired absence of other specified parts of digestive tract; Z79.899 Other long term (current) drug therapy; Z68.26 Body mass index [BMI] 26.0-26.9, adult
CPT/HCPCS: 36415; 74177; 80048; 80053; 80305-QW; 83690; 85025; 85027; 96374; 96375; 96376; 99285; 99285-25; A9270-GY; C9113; J1170; J1650; J2765; J7030; J7120; Q9967

== ENCOUNTER 2020-12-03 02:23 | Observation (INO) | payer MEDICAID ==
[2020-12-03] MEDS ORDERED: Sodium Chloride 0.9% 1,000 ML IV SCH (03:45)
[2020-12-03] MEDS ORDERED: Bisacodyl 10 MG Supp RECTAL PRN (06:18)
[2020-12-03] MEDS ORDERED: Docusate Sodium 100 MG Cap PO PRN (06:18)
--- NOTE | 2020-12-03 08:25 | PCM.PN ---
- General Info Date of Service: 12/03/20 Subjective Update: Mr. Galicia was readmitted during the night with persistent pain and nausea secondary to his pancreatitis. He left the hospital yesterday afternoon AGAINST MEDICAL ADVICE. Liver enzymes elevated and it is possible that he passed a common duct stone causing current pancreatitis. He is lethargic having just received pain medication and currently unable to provide meaningful information concerning symptoms or review of systems. Functional Status: Reports: Urinating - Patient Data Vitals - Most Recent: Last Vital Signs Temp 98.4 F 12/03/20 06:30 Pulse 94 12/03/20 04:00 Resp 16 12/03/20 04:00 BP 123/74 12/03/20 04:00 Pulse Ox 95 12/03/20 07:28 Weight - Most Recent: 210 lb 5.136 oz Lab Results Last 24 Hours: Laboratory Results - last 24 hr 12/03/20 12/03/20 Range/Units 03:45 06:45 WBC 12.6 H (4.5-11.0) K/uL RBC 5.00 (4.30-5.90) M/uL Hgb 15.1 H (12.0-15.0) g/dL Hct 42.9 (40.0-54.0) % MCV 86 (80-98) fL MCH 30 (27-31) pg MCHC 35 (32-36) % Plt Count 198 (150-400) K/uL Neut % (Auto) 82 H (36-66) % Lymph % (Auto) 6 L (24-44) % [place] % (Auto) 12 H (2-6) % Eos % (Auto) 1 L (2-4) % Baso % (Auto) 0 (0-1) % Sodium 138 L (140-148) mmol/L Potassium 3.9 (3.6-5.2) mmol/L Chloride 99 L (100-108) mmol/L Carbon Dioxide 28 (21-32) mmol/L Anion Gap 14.9 H (5.0-14.0) mmol/L BUN 10 (7-18) mg/dL Creatinine 0.9 (0.8-1.3) mg/dL Est Cr Clr Drug Dosing 106.61 mL/min Estimated GFR (MDRD) > 60 (>60) Glucose 102 (74-106) mg/dL Calcium 8.7 (8.5-10.1) mg/dL Total Bilirubin 3.8 H D (0.2-1.0) mg/dL AST 85 H (15-37) U/L ALT 180 H (12-78) U/L Alkaline Phosphatase 182 H (46-116) U/L Total Protein 6.4 (6.4-8.2) g/dL Albumin 3.2 L (3.4-5.0) g/dL Globulin 3.2 (2.3-3.5) g/dL Albumin/Globulin Ratio 1.0 L (1.2-2.2) Amylase 221 H (25-115) U/L Lipase 788 H (73-393) U/L Med Orders - Current: Current Medications Bisacodyl (Bisacodyl 10 Mg Supp) 10 mg RECTAL DAILY PRN PRN Reason: Constipation Docusate Sodium (Docusate Sodium 100 Mg Cap) 100 mg PO DAILY PRN PRN Reason: Constipation Enoxaparin Sodium (Enoxaparin 40 Mg/0.4 Ml Syringe) 40 mg SUBCUT DAILY [facility] Hydromorphone HCl (Hydromorphone 1 Mg/Ml Syringe) 1 mg IV Q2H PRN PRN Reason: PAIN Sodium Chloride (Normal Saline) 1,000 mls @ 125 mls/hr IV ASDIRECTED [facility] Last Admin: 12/03/20 04:20 Dose: 125 mls/hr Documented by: Pantoprazole Sodium (Pantoprazole 40 Mg Vial) 40 mg IV Q24H [facility] Discontinued Medications Acetaminophen (Ofirmev 1000 Mg/100 Ml) 100 mls @ 400 mls/hr IV ONETIME ONE Stop: 12/03/20 04:34 Last Admin: 12/03/20 04:20 Dose: 400 mls/hr Documented by: - Exam General: Sedated, Lethargic Lungs: Clear to Auscultation, Normal Respiratory Effort Cardiovascular: Regular Rate, Regular Rhythm, No Murmurs GI/Abdominal Exam: Soft, No Organomegaly, Tender. No: Distended, Guarding, Rigid, Rebound Extremities: Non-Tender, No Pedal Edema - Patient Data Lab Results Last 24 hrs: Laboratory Results - last 24 hr 12/03/20 12/03/20 Range/Units 03:45 06:45 WBC 12.6 H (4.5-11.0) K/uL RBC 5.00 (4.30-5.90) M/uL Hgb 15.1 H (12.0-15.0) g/dL Hct 42.9 (40.0-54.0) % MCV 86 (80-98) fL MCH 30 (27-31) pg MCHC 35 (32-36) % Plt Count 198 (150-400) K/uL Neut % (Auto) 82 H (36-66) % Lymph % (Auto) 6 L (24-44) % [place] % (Auto) 12 H (2-6) % Eos % (Auto) 1 L (2-4) % Baso % (Auto) 0 (0-1) % Sodium 138 L (140-148) mmol/L Potassium 3.9 (3.6-5.2) mmol/L Chloride 99 L (100-108) mmol/L Carbon Dioxide 28 (21-32) mmol/L Anion Gap 14.9 H (5.0-14.0) mmol/L BUN 10 (7-18) mg/dL Creatinine 0.9 (0.8-1.3) mg/dL Est Cr Clr Drug Dosing 106.61 mL/min Estimated GFR (MDRD) > 60 (>60) Glucose 102 (74-106) mg/dL Calcium 8.7 (8.5-10.1) mg/dL Total Bilirubin 3.8 H D (0.2-1.0) mg/dL AST 85 H (15-37) U/L ALT 180 H (12-78) U/L Alkaline Phosphatase 182 H (46-116) U/L Total Protein 6.4 (6.4-8.2) g/dL Albumin 3.2 L (3.4-5.0) g/dL Globulin 3.2 (2.3-3.5) g/dL Albumin/Globulin Ratio 1.0 L (1.2-2.2) Amylase 221 H (25-115) U/L Lipase 788 H (73-393) U/L Result Diagrams: 12/03/20 06:45 12/03/20 03:45 Sepsis Event Note - Evaluation Sepsis Screening Result: No Definite Risk - Focused Exam Vital Signs: Vital Signs Temp Pulse Resp BP Pulse Ox 12/03/20 07:28 95 12/03/20 06:30 98.4 F 03/17/21 04:30 95 12/03/20 04:00 101.2 F H 94 16 123/74 97 12/03/20 03:00 98.1 F 93 16 118/79 97 - Problem List Review Problem List Initiated/Reviewed/Updated: Yes - My Orders Last 24 Hours: My Active Orders 12/03/20 03:45 HYDROmorphone [Dilaudid] 1 mg IV Q2H PRN Sodium Chloride 0.9% [Normal Saline] 1,000 ml IV ASDIRECTED 12/03/20 06:18 Docusate Sodium [Colace] 100 mg PO DAILY PRN bisacodyL [Dulcolax] 10 mg RECTAL DAILY PRN 12/03/20 08:22 Cholangiopancreatography [MR] Urgent 12/03/20 09:00 Enoxaparin [Lovenox] 40 mg SUBCUT DAILY Pantoprazole [ProTONIX IV] 40 mg IV Q24H - Plan Plan:: ASSESSMENT AND PLAN PANCREATITIS-persistent symptoms of pain with nausea. 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 Lipase level has improved from yesterday, but still remains elevated. Liver enzymes including bilirubin elevated -MRCP today to evaluate elevated liver enzymes -IV fluids for hydration -NPO -Pain and nausea medication as needed -repeat labs in a.m. CHEMICAL DEPENDENCY reports daily use of Meth and THC. last use yesterday. denies injection of drugs- smokes Meth and THC. Not interested in treatment at this time. -monitor for withdrawal, agitation -treat as needed for agitation MAINTENANCE ISSUES -DVT prophylaxis- Lovenox 40 mg subcut daily -GI prophylaxis- PPI therapy -[place] catheter- not indicated -Nutrition- NPO -Nicotine dependence-nicotine patch and nicotine gum CODE STATUS-FULL CODE ADMISSION STATUS-patient will be admitted to inpatient status, expect at least a 2 night hospital stay for evaluation and management of problems as outlined above. At the time of this admission I do not reasonably expected evaluation and management of this problem will require more than a 96 hour hospital stay. DISPOSITION-anticipate discharge to home after the hospital stay. PRIMARY CARE PROVIDER- no primary care listed HOSPITALIST- Dr. Booker
[2020-12-03] MEDS ORDERED: Enoxaparin 40 MG/0.4 ML Syringe SUBCUT SCH (09:00)
[2020-12-03] MEDS ORDERED: Pantoprazole 40 MG Vial IV SCH (09:00)
[2020-12-03] MEDS: HYDROmorphone 1 MG/ML Syringe IV PRN ×2 (09:57→13:01)
[2020-12-03] MEDS ORDERED: Ondansetron 4 MG/2 ML SDV IVPUSH PRN (10:26)
[2020-12-03] MEDS ORDERED: Nicotine Polacrilex 2 MG Gum CHEW PRN (10:31)
[2020-12-03] MEDS ORDERED: Nicotine 14 MG/24 Hr Patch TRDERM SCH (10:45)
[2020-12-03] MEDS ORDERED: Polyethylene Glycol 3350 Powder 17 GM Packet PO ONE (11:00)
--- NOTE | 2020-12-03 13:48 | MR ---
Cholangiopancreatography CLINICAL HISTORY: Pancreatitis, elevated bilirubin COMPARISON: CT 12/01/2020 TECHNIQUE: Multiple images of the biliary system were obtained. All images were obtained on a 1.5 Poonam Siemens unit. FINDINGS: The liver has a normal configuration and signal. There is no intrahepatic biliary dilatation. The gallbladder has been removed. The common bile duct measures 6 mm. Pancreatic duct measures between 2 and 3 mm. Pancreas is free of mass or inflammatory change. No abnormal fluid collections are identified IMPRESSION: Previous cholecystectomy No mass, biliary dilatation or inflammatory change
[2020-12-03 14:52] VITALS: BP 122/73; PULSE 85
--- NOTE | 2020-12-03 16:51 | PCM.DCSUM1 ---
Discharge Summary - Hospital Course Brief History: Mr. Galicia is a 40-year-old gentleman who was readmitted through the emergency department early in the morning of December 03 with persistent abdominal pain and nausea secondary to pancreatitis. - Discharge Data Discharge Date: 12/03/20 Discharge Disposition: Against Medical Advice 07 Condition: Good - Referral to Home Health Primary Care Physician: PCP None - Patient Summary/Data Hospital Course: Mr. Galicia is a 40-year-old gentleman who is readmitted to this facility early in the morning of December 03 with persistent abdominal pain and nausea secondary to pancreatitis. He had been hospitalized at this facility and left AMA on December 02. Labs were repeated on admission he did show evidence of liver enzyme elevation. He was kept n.p.o. and given IV fluids for hydration as well as medication for nausea and pain. MRCP was obtained and showed no evidence of biliary or pancreatic obstruction. On the afternoon of December 03 the patient again left AMA. - Discharge Plan Home Medications: Home Meds Omeprazole Magnesium 20 mg PO DAILY 12/01/20 [History] Albuterol [Proventil HFA] 2 puff IH ASDIRECTED PRN 12/03/20 [History] - Discharge Summary/Plan Comment DC Time >30 min.: No - Patient Data Vitals - Most Recent: Last Vital Signs Temp 99.1 F 12/03/20 14:51 Pulse 85 12/03/20 14:51 Resp 16 12/03/20 14:51 BP 122/73 12/03/20 14:51 Pulse Ox 97 12/03/20 14:51 Weight - Most Recent: 210 lb 5.136 oz Lab Results - Last 24 hrs: Laboratory Results - last 24 hr 12/03/20 12/03/20 Range/Units 03:45 06:45 WBC 12.6 H (4.5-11.0) K/uL RBC 5.00 (4.30-5.90) M/uL Hgb 15.1 H (12.0-15.0) g/dL Hct 42.9 (40.0-54.0) % MCV 86 (80-98) fL MCH 30 (27-31) pg MCHC 35 (32-36) % Plt Count 198 (150-400) K/uL Neut % (Auto) 82 H (36-66) % Lymph % (Auto) 6 L (24-44) % [place] % (Auto) 12 H (2-6) % Eos % (Auto) 1 L (2-4) % Baso % (Auto) 0 (0-1) % Sodium 138 L (140-148) mmol/L Potassium 3.9 (3.6-5.2) mmol/L Chloride 99 L (100-108) mmol/L Carbon Dioxide 28 (21-32) mmol/L Anion Gap 14.9 H (5.0-14.0) mmol/L BUN 10 (7-18) mg/dL Creatinine 0.9 (0.8-1.3) mg/dL Est Cr Clr Drug Dosing 106.61 mL/min Estimated GFR (MDRD) > 60 (>60) Glucose 102 (74-106) mg/dL Calcium 8.7 (8.5-10.1) mg/dL Total Bilirubin 3.8 H D (0.2-1.0) mg/dL AST 85 H (15-37) U/L ALT 180 H (12-78) U/L Alkaline Phosphatase 182 H (46-116) U/L Total Protein 6.4 (6.4-8.2) g/dL Albumin 3.2 L (3.4-5.0) g/dL Globulin 3.2 (2.3-3.5) g/dL Albumin/Globulin Ratio 1.0 L (1.2-2.2) Amylase 221 H (25-115) U/L Lipase 788 H (73-393) U/L Med Orders - Current: Current Medications Discontinued Medications Bisacodyl (Bisacodyl 10 Mg Supp) 10 mg RECTAL DAILY PRN PRN Reason: Constipation Docusate Sodium (Docusate Sodium 100 Mg Cap) 100 mg PO DAILY PRN PRN Reason: Constipation Enoxaparin Sodium (Enoxaparin 40 Mg/0.4 Ml Syringe) 40 mg SUBCUT DAILY [facility] Last Admin: 12/03/20 08:53 Dose: 40 mg Documented by: Hydromorphone HCl (Hydromorphone 1 Mg/Ml Syringe) 1 mg IV Q2H PRN PRN Reason: PAIN Last Admin: 12/03/20 13:01 Dose: 1 mg Documented by: Sodium Chloride (Normal Saline) 1,000 mls @ 75 mls/hr IV ASDIRECTED [facility] Last Admin: 12/03/20 04:20 Dose: 125 mls/hr Documented by: Acetaminophen (Ofirmev 1000 Mg/100 Ml) 100 mls @ 400 mls/hr IV ONETIME ONE Stop: 12/03/20 04:34 Last Admin: 12/03/20 04:20 Dose: 400 mls/hr Documented by: Nicotine (Nicotine 14 Mg/24 Hr Patch) 14 mg TRDERM DAILY [facility] Last Admin: 12/03/20 11:48 Dose: Not Given Documented by: Nicotine Polacrilex (Nicotine Polacrilex 2 Mg Gum) 2 mg CHEW Q1H PRN PRN Reason: Other Ondansetron HCl (Ondansetron 4 Mg/2 Ml Sdv) 4 mg IVPUSH Q4H PRN PRN Reason: Nausea/Vomiting Pantoprazole Sodium (Pantoprazole 40 Mg Vial) 40 mg IV Q24H [facility] Last Admin: 12/03/20 08:53 Dose: 40 mg Documented by: Polyethylene Glycol (Polyethylene Glycol 3350 Powder 17 Gm Packet) 17 gm PO ONETIME ONE Stop: 12/03/20 11:01 Last Admin: 12/03/20 11:48 Dose: 17 gm Documented by: - Exam General: Reports: Other (Left AGAINST MEDICAL ADVICE)
== END 2020-12-03 16:15 | disposition left against medical advice (07) ==
LOC: JP.ED 02:23 → JP.MS 03:45
PROVIDERS: ADMIT Hospitalist; ATTEND Hospitalist
DX: K85.90 Acute pancreatitis without necrosis or infection, unspecified (principal); R74.01 Elevation of levels of liver transaminase levels; F11.20 Opioid dependence, uncomplicated; F12.20 Cannabis dependence, uncomplicated; F15.20 Other stimulant dependence, uncomplicated; J45.909 Unspecified asthma, uncomplicated; Z98.890 Other specified postprocedural states; Z53.29 Procedure and treatment not carried out because of patient's decision for other reasons
CPT/HCPCS: 36415; 74181; 80053; 82150; 83690; 85025; A9270; C9113; J0131; J1170; J1650; J7030

== ENCOUNTER 2021-03-09 01:40 | Emergency (ER) | payer MEDICAID ==
[2021-03-09 01:58] VITALS: BP 133/92; PULSE 94
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
--- NOTE | 2021-03-09 10:21 | CR ---
Foot Comp Min 3V Lt CLINICAL HISTORY: Injury FINDINGS: There is no acute fracture or dislocation within the foot. No destructive changes are present. IMPRESSION: No acute bony process.
== END 2021-03-09 02:29 | disposition home or self-care (01) ==
LOC: JP.ED 01:40
DX: S90.32XA Contusion of left foot, initial encounter (principal); K21.9 Gastro-esophageal reflux disease without esophagitis; E66.9 Obesity, unspecified; Z68.30 Body mass index [BMI] 30.0-30.9, adult; Z72.0 Tobacco use; W50.1XXA Accidental kick by another person, initial encounter
CPT/HCPCS: 73630-26-LT; 73630-LT; 99282; 99283-25

== ENCOUNTER 2021-04-12 11:51 | Emergency (ER) | payer MEDICAID ==
[2021-04-12 12:09] VITALS: BP 114/81; PULSE 96
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
--- NOTE | 2021-04-13 10:43 | CR ---
Hand Comp Min 3V Rt CLINICAL HISTORY: Injury FINDINGS: There is no acute fracture or dislocation of the hand. Impression: Negative
== END 2021-04-12 13:17 | disposition home or self-care (01) ==
LOC: JP.ED 11:51
DX: S69.91XA Unspecified injury of right wrist, hand and finger(s), initial encounter (principal); K21.9 Gastro-esophageal reflux disease without esophagitis; E66.9 Obesity, unspecified; Z72.0 Tobacco use; Z79.899 Other long term (current) drug therapy; Z68.30 Body mass index [BMI] 30.0-30.9, adult; W50.0XXA Accidental hit or strike by another person, initial encounter
CPT/HCPCS: 73130-26-RT; 73130-RT; 99283-25

== ENCOUNTER 2021-04-14 15:25 | Emergency (ER) | payer MEDICAID | END 2021-04-14 16:36 | disposition left against medical advice (07) | LOC: JP.ED 15:25 | DX: Z53.21 Procedure and treatment not carried out due to patient leaving prior to being seen by health care provider (principal) ==

== ENCOUNTER 2021-04-15 05:19 | Emergency (ER) | payer MEDICAID ==
[2021-04-15 06:09] VITALS: BP 121/76; PULSE 97
--- NOTE | 2021-04-15 06:12 | EDM.PDOC ---
<Lindsay Gallagher - Last Filed: 04/15/21 07:01> ED HPI GENERAL MEDICAL PROBLEM - General Chief Complaint: Abdominal Pain Stated Complaint: RIGHT SIDE ABD PAIN Time Seen by Provider: 04/15/21 06:06 Source of Information: Reports: Patient History Limitations: Reports: No Limitations - History of Present Illness INITIAL COMMENTS - FREE TEXT/NARRATIVE: Patient presents emergency room today secondary to abdominal pain and discomfort, Patient reports right lower quadrant pain with rest radiation to his testicles pain also in his right flank it is intermittent in nature and short bursts rated as a 7 out of 10 occasionally has some nausea with this no vomiting and denies any fevers chills or UTI symptoms. When asked how long symptoms have been occurring patient states that initially several weeks ago he had an episode and nothing for a couple of weeks then about a week later he started having on and off every couple of days and now he reports it has been daily for 1 week. PMH-anxiety, depression, asthma, reflux Med--omeprazole, inhalers for asthma NKDA Tob--1/2 ppd EtOH--denies Drugs--marijuana denies having had COVID infection nor has he had the immunization right lower abd Pain Score (Numeric/FACES): 7 - Related Data Allergies Allergy/AdvReac Type Severity Reaction Status Date / Time No Known Allergies Allergy Verified 04/15/21 05:38 Home Meds: Home Meds Omeprazole Magnesium 20 mg PO DAILY 12/01/20 [History] Albuterol [Proventil HFA] 2 puff IH ASDIRECTED PRN 12/03/20 [History] Past Medical History HEENT History: Reports: Allergic Rhinitis Other HEENT History: hx ear infections recent tooth pain Respiratory History: Reports: Asthma Gastrointestinal History: Reports: GERD, Hemorrhoids Genitourinary History: Reports: Renal Calculus Musculoskeletal History: Reports: Back Pain, Chronic, Fracture Other Musculoskeletal History: r wrist fx Neurological History: Reports: Migraines Psychiatric History: Reports: Anxiety Endocrine/Metabolic History: Reports: Obesity/BMI 30+ Dermatologic History: Reports: Cellulitis, Other (See Below) Other Dermatologic History: MRSA from cellulitis - Infectious Disease History Infectious Disease History: Reports: Chicken Pox - Past Surgical History HEENT Surgical History: Reports: None Respiratory Surgical History: Reports: None GI Surgical History: Reports: Cholecystectomy, Hernia, Inguinal Endocrine Surgical History: Reports: None Neurological Surgical History: Reports: None Musculoskeletal Surgical History: Reports: None Dermatological Surgical History: Reports: None Social & Family History - Tobacco Use Tobacco Use Status *Q: Current Every Day Tobacco User Years of Tobacco use: 20 Packs/Tins Daily: 0.5 - Caffeine Use Caffeine Use: Reports: Soda - Recreational Drug Use Recreational Drug Use: Yes Drug Use in Last 12 Months: Yes Recreational Drug Type: Reports: Marijuana/Hashish Recreational Drug Use Frequency: Daily - Living Situation & Occupation Living situation: Reports: Single (lives in [facility] apartments across from the hospital with a roommate. has two children.) ED ROS GENERAL - Review of Systems Review Of Systems: Comprehensive ROS is negative, except as noted in HPI. Constitutional: Reports: No Symptoms. Denies: Fever, Chills, Decreased Appetite HEENT: Reports: No Symptoms Respiratory: Reports: No Symptoms Cardiovascular: Reports: No Symptoms GI/Abdominal: Reports: Abdominal Pain, Nausea. Denies: Decreased Appetite, Vomiting : Reports: No Symptoms ED EXAM, GENERAL - Physical Exam Exam: See Below Exam Limited By: No Limitations General Appearance: Alert, WD/WN, No Apparent Distress Eye Exam: Bilateral Eye: EOMI, Normal Inspection, PERRL Ears: Normal External Exam, Hearing Grossly Normal Nose: Normal Inspection Throat/Mouth: Normal Inspection, Normal Oropharynx, Normal Voice, No Airway Compromise Head: Atraumatic, Normocephalic Neck: Normal Inspection, Supple, Full Range of Motion Respiratory/Chest: No Respiratory Distress, Wheezing (light scattered wheeze (likely secondary to his active smoking and asthma history, no acute concerns/patient states he is at his baseline/normal)) Cardiovascular: Normal Peripheral Pulses, Regular Rate, Rhythm, No Edema, No Murmur Peripheral Pulses: 2+: Radial (L), Radial (R) GI/Abdominal: Normal Bowel Sounds, Soft, Tender (RLQ tenderness to deep palpitation, no rebound/referred rebound/guarding; no flank pain/tenderness to palpitation). No: Distended, Guarding, Rigid, Rebound (Male) Exam: Deferred Rectal (Males) Exam: Deferred Back Exam: CVA Tenderness (R), CVA Tenderness (L) Extremities: Normal Inspection, Normal Range of Motion, No Pedal Edema, Normal Capillary Refill Neurological: Alert, Oriented, Normal Cognition, Normal Gait, No Motor/Sensory Deficits Psychiatric: Normal Affect, Normal Mood Skin Exam: Warm, Dry, Intact, Normal Color Course - Vital Signs Text/Narrative:: 0700--CBC and CMP reviewed, no acute concerns/normal WBC & creat. UA Is pending collection. case d/w Dr Young, ER at change of shift/tranfer of care Departure - Departure Disposition: Home, Self-Care 01 Clinical Impression: Bowel movement symptom - Discharge Information Instructions: Constipation, Adult, [id number] Referrals: PCP,None [Primary Care Provider] - Forms: ED Department Discharge Additional Instructions: Drink enough fluids to keep your urine very light yellow in color. Take Miralax 1 dose daily with a large glass of water. Recheck with your provider later this week or next. <Reniier Olivera - Last Filed: 04/15/21 08:39> Course - Vital Signs Last Recorded V/S: Last Vital Signs Temp 36.7 C 04/15/21 06:08 Pulse 97 04/15/21 06:08 Resp 15 04/15/21 06:08 BP 121/76 04/15/21 06:08 Pulse Ox 97 04/15/21 06:08 - Orders/Labs/Meds Labs: Laboratory Tests 04/15/21 04/15/21 04/15/21 Range/Units 06:22 06:22 07:10 WBC 9.0 (4.5-11.0) K/uL RBC 5.41 (4.30-5.90) M/uL Hgb 16.0 H (12.0-15.0) g/dL Hct 44.3 (40.0-54.0) % MCV 82 (80-98) fL MCH 30 (27-31) pg MCHC 36 (32-36) % Plt Count 293 (150-400) K/uL Neut % (Auto) 55.6 (36-66) % Lymph % (Auto) 25.6 (24-44) % Benson % (Auto) 10.3 H (2-6) % Eos % (Auto) 7.9 H (2-4) % Baso % (Auto) 0.6 (0-1) % Sodium 140 (140-148) mmol/L Potassium 3.6 (3.6-5.2) mmol/L Chloride 104 (100-108) mmol/L Carbon Dioxide 27 (21-32) mmol/L Anion Gap 8.7 (5.0-14.0) mmol/L BUN 11 (7-18) mg/dL Creatinine 1.0 (0.8-1.3) mg/dL Est Cr Clr Drug Dosing 95.95 mL/min Estimated GFR (MDRD) > 60 (>60) Glucose 97 (74-106) mg/dL Calcium 8.8 (8.5-10.1) mg/dL Magnesium 2.1 (1.8-2.4) mg/dL Total Bilirubin 0.5 D (0.2-1.0) mg/dL AST 29 (15-37) U/L ALT 57 (12-78) U/L Alkaline Phosphatase 131 H (46-116) U/L Total Protein 7.4 (6.4-8.2) g/dL Albumin 3.6 (3.4-5.0) g/dL Globulin 3.8 H (2.3-3.5) g/dL Albumin/Globulin Ratio 1.0 L (1.2-2.2) Urine Color Yellow (YELLOW) Urine Appearance Clear (CLEAR) Urine pH 6.0 (5.0-8.0) Ur Specific [place] >= 1.030 (1.008-1.030) Urine Protein Trace H (NEGATIVE) mg/dL Urine Glucose (UA) Negative (NEGATIVE) mg/dL Urine Ketones Negative (NEGATIVE) mg/dL Urine Occult Blood Trace-intact H (NEGATIVE) Urine Nitrite Negative (NEGATIVE) Urine Bilirubin Negative (NEGATIVE) Urine Urobilinogen 0.2 (0.2-1.0) EU/dL Ur Leukocyte Esterase Negative (NEGATIVE) Urine RBC 10-20 H (0-5) Urine WBC 0-5 (0-5) Ur Epithelial Cells Few Amorphous Sediment Not seen Urine Bacteria Not seen Urine Mucus Moderate Urine Opiates Screen (NEGATIVE) Ur Oxycodone Screen (NEGATIVE) Urine Methadone Screen (NEGATIVE) Ur Propoxyphene Screen (NEGATIVE) Ur Barbiturates Screen (NEGATIVE) Ur Tricyclics Screen (NEGATIVE) Ur Phencyclidine Scrn (NEGATIVE) Ur Amphetamine Screen (NEGATIVE) U Methamphetamines Scrn (NEGATIVE) Urine MDMA Screen (NEGATIVE) U Benzodiazepines Scrn (NEGATIVE) U Cocaine Metab Screen (NEGATIVE) U Marijuana (THC) Screen (NEGATIVE) 04/15/21 Range/Units 07:10 WBC (4.5-11.0) K/uL RBC (4.30-5.90) M/uL Hgb (12.0-15.0) g/dL Hct (40.0-54.0) % MCV (80-98) fL MCH (27-31) pg MCHC (32-36) % Plt Count (150-400) K/uL Neut % (Auto) (36-66) % Lymph % (Auto) (24-44) % Benson % (Auto) (2-6) % Eos % (Auto) (2-4) % Baso % (Auto) (0-1) % Sodium (140-148) mmol/L Potassium (3.6-5.2) mmol/L Chloride (100-108) mmol/L Carbon Dioxide (21-32) mmol/L Anion Gap (5.0-14.0) mmol/L BUN (7-18) mg/dL Creatinine (0.8-1.3) mg/dL Est Cr Clr Drug Dosing mL/min Estimated GFR (MDRD) (>60) Glucose (74-106) mg/dL Calcium (8.5-10.1) mg/dL Magnesium (1.8-2.4) mg/dL Total Bilirubin (0.2-1.0) mg/dL AST (15-37) U/L ALT (12-78) U/L Alkaline Phosphatase (46-116) U/L Total Protein (6.4-8.2) g/dL Albumin (3.4-5.0) g/dL Globulin (2.3-3.5) g/dL Albumin/Globulin Ratio (1.2-2.2) Urine Color (YELLOW) Urine Appearance (CLEAR) Urine pH (5.0-8.0) Ur Specific [place] (1.008-1.030) Urine Protein (NEGATIVE) mg/dL Urine Glucose (UA) (NEGATIVE) mg/dL Urine Ketones (NEGATIVE) mg/dL Urine Occult Blood (NEGATIVE) Urine Nitrite (NEGATIVE) Urine Bilirubin (NEGATIVE) Urine Urobilinogen (0.2-1.0) EU/dL Ur Leukocyte Esterase (NEGATIVE) Urine RBC (0-5) Urine WBC (0-5) Ur Epithelial Cells Amorphous Sediment Urine Bacteria Urine Mucus Urine Opiates Screen Negative (NEGATIVE) Ur Oxycodone Screen Negative (NEGATIVE) Urine Methadone Screen Negative (NEGATIVE) Ur Propoxyphene Screen Negative (NEGATIVE) Ur Barbiturates Screen Negative (NEGATIVE) Ur Tricyclics Screen Negative (NEGATIVE) Ur Phencyclidine Scrn Negative (NEGATIVE) Ur Amphetamine Screen Presumptive positive H (NEGATIVE) U Methamphetamines Scrn Presumptive positive H (NEGATIVE) Urine MDMA Screen Presumptive positive H (NEGATIVE) U Benzodiazepines Scrn Negative (NEGATIVE) U Cocaine Metab Screen Negative (NEGATIVE) U Marijuana (THC) Screen Presumptive positive H (NEGATIVE) Meds: Medications Discontinued Medications Generic Name Dose Route Start Last Admin Trade Name Freq PRN Reason Stop Dose Admin Ketorolac Tromethamine 30 mg 04/15/21 07:34 04/15/21 07:41 Ketorolac 30 Mg/Ml Sdv IM 04/15/21 07:35 30 mg ONETIME ONE Administration Oxycodone/Acetaminophen 1 tab 04/15/21 07:35 04/15/21 07:41 Acetaminophen/Oxycodone 325-5 Mg Tab PO 04/15/21 07:36 1 tab ONETIME STA Administration - Radiology Interpretation Free Text/Narrative:: CT abd/pelvis without contrast-Impression: Moderate stool seen throughout the colon. Normal appendix. No evidence of distal obstructive radiopaque calculus or hydronephrosis. Prior cholecystectomy. Please note that all CT scans at this facility use dose modulation, iterative reconstruction, and/or weight-based dosing when appropriate to reduce radiation dose to as low as reasonably achievable. Dictated by Seamus Gaines MD @ 04/15/2021 8:14:[address] Results Date: 04/15/21 CT Results Time: 08:36 Departure - Departure Time of Disposition: 09:45 Condition: Good - Discharge Information *PRESCRIPTION DRUG MONITORING PROGRAM REVIEWED*: Not Applicable *COPY OF PRESCRIPTION DRUG MONITORING REPORT IN PATIENT SHRUTHI: Not Applicable Sepsis Event Note (ED) - Focused Exam Vital Signs: Vital Signs Temp Pulse Resp BP Pulse Ox 04/15/21 06:08 36.7 C 97 15 121/76 97 04/15/21 06:03 36.7 C 97 15 121/76 97
[2021-04-15] MEDS ORDERED: Ketorolac 30 MG/ML SDV IM ONE (07:34)
[2021-04-15] MEDS ORDERED: Acetaminophen/oxyCODONE 325-5 MG Tab PO STA (07:35)
--- NOTE | 2021-04-15 08:16 | CRLCT ---
For Patients: As a result of the Century Cures Act, medical imaging exams and procedure reports are released immediately into your electronic medical record. You may view this report before your referring provider. If you have questions, please contact your health care provider. Indication: Right lower quadrant pain with microscopic hematuria Technique: Volumetric multidetector CT images of the abdomen and pelvis were without the administration of intravenous contrast. Comparison: CT abdomen and pelvis December 01, 2020 Findings: The lung bases are clear. The liver is normal in attenuation without intrahepatic biliary ductal dilatation. There is prior cholecystectomy. There is no significant common biliary ductal dilatation or abrupt cut off. The spleen is normal in attenuation and size. The stomach and duodenum are grossly unremarkable. The pancreas is normal in attenuation without significant atrophy. The adrenal glands are unremarkable. There is no evidence of radiopaque calculus or hydronephrosis. There is moderate stool seen throughout the colon with minimal colonic diverticulosis. There is trace fluid seen within the central small bowel which can be seen in the setting of mild enteritis changes. The appendix is unremarkable. There is no significant mesenteric, retroperitoneal, or pelvic sidewall lymph nodes. The aorta is nonaneurysmal. There is no significant atherosclerotic disease appreciated. The solid pelvic viscera are grossly unremarkable. There is no free fluid or free air. There is a fat containing umbilical hernia, otherwise the anterior abdominal wall is grossly unremarkable. The lumbar vertebral body heights are grossly maintained in satisfactory alignment without evidence of displaced fracture, lytic or blastic lesion. Impression: Moderate stool seen throughout the colon. Normal appendix. No evidence of distal obstructive radiopaque calculus or hydronephrosis. Prior cholecystectomy. Please note that all CT scans at this facility use dose modulation, iterative reconstruction, and/or weight-based dosing when appropriate to reduce radiation dose to as low as reasonably achievable. Dictated by Seamus Gaines MD @ 04/15/2021 8:14:[address] Seamus Gaines @ Apr 15 2021 8:14AM
[2021-04-15] MEDS ORDERED: Polyethylene Glycol 3350 Powder 17 GM Packet PO ONE (08:36)
== END 2021-04-15 08:55 | disposition home or self-care (01) ==
LOC: JP.ED 05:19
DX: R10.31 Right lower quadrant pain (principal); K21.9 Gastro-esophageal reflux disease without esophagitis; E66.9 Obesity, unspecified; F17.210 Nicotine dependence, cigarettes, uncomplicated; Z79.899 Other long term (current) drug therapy; Z68.31 Body mass index [BMI] 31.0-31.9, adult
CPT/HCPCS: 36415; 74176; 80053; 80305; 81001; 83735; 85025; 96372; 99284; A9270; J1885

== ENCOUNTER 2021-04-29 18:18 | Emergency (ER) | payer MEDICAID ==
[2021-04-29 18:43] VITALS: BP 119/90; PULSE 94
[2021-04-29] MEDS: Proparacaine 0.5% Ophth Soln 15 ML Bottle EYEBOTH STA (19:00)
--- NOTE | 2021-04-29 19:20 | EDM.PDOC ---
ED HPI GENERAL MEDICAL PROBLEM - General Chief Complaint: Eye Problems Stated Complaint: SOMETHING IN LEFT EYE Time Seen by Provider: 04/29/21 18:58 Source of Information: Reports: Patient, RN Notes Reviewed History Limitations: Reports: No Limitations - History of Present Illness INITIAL COMMENTS - FREE TEXT/NARRATIVE: 40-year-old gentleman presents emergency department today with complaint of foreign body in his left eye he injured himself when he was working underneath his car. No complaints of vision - Related Data Allergies Allergy/AdvReac Type Severity Reaction Status Date / Time No Known Allergies Allergy Verified 04/15/21 05:38 Home Meds: Home Meds Omeprazole Magnesium 20 mg PO DAILY 12/01/20 [History] Albuterol [Proventil HFA] 2 puff IH ASDIRECTED PRN 12/03/20 [History] Past Medical History HEENT History: Reports: Allergic Rhinitis Other HEENT History: hx ear infections recent tooth pain Respiratory History: Reports: Asthma Gastrointestinal History: Reports: GERD, Hemorrhoids Genitourinary History: Reports: Renal Calculus Musculoskeletal History: Reports: Back Pain, Chronic, Fracture Other Musculoskeletal History: r wrist fx Neurological History: Reports: Migraines Psychiatric History: Reports: Anxiety Endocrine/Metabolic History: Reports: Obesity/BMI 30+ Dermatologic History: Reports: Cellulitis, Other (See Below) Other Dermatologic History: MRSA from cellulitis - Infectious Disease History Infectious Disease History: Reports: Chicken Pox - Past Surgical History HEENT Surgical History: Reports: None Respiratory Surgical History: Reports: None GI Surgical History: Reports: Cholecystectomy, Hernia, Inguinal Endocrine Surgical History: Reports: None Neurological Surgical History: Reports: None Musculoskeletal Surgical History: Reports: None Dermatological Surgical History: Reports: None Social & Family History - Tobacco Use Tobacco Use Status *Q: Current Every Day Tobacco User Years of Tobacco use: 28 Packs/Tins Daily: 1 - Caffeine Use Caffeine Use: Reports: Soda - Recreational Drug Use Recreational Drug Use: Yes Recreational Drug Type: Reports: Marijuana/Hashish Recreational Drug Use Frequency: Daily - Living Situation & Occupation Living situation: Reports: Single ([facility] the [facility] with a roommate. has two children.) ED ROS GENERAL - Review of Systems Review Of Systems: See Below HEENT: Reports: Eye Discharge, Eye Pain. Denies: Vision Change ED EXAM GENERAL W FULL EYE - Physical Exam Exam: See Below Text/Narrative:: Use proparacaine prior to the exam Exam Limited By: No Limitations General Appearance: Alert, WD/WN, No Apparent Distress Eyelids: Bilateral: Normal Appearance Conjunctiva & Sclera: Right: Normal Appearance, Left: Foreign Body Cornea Exam: Right: Normal Appearance, Left: Corneal Ulcer Extraocular Movements: Bilateral: Intact Pupillary Size: Bilateral: 4 mm Pupillary Reaction: Bilateral: Brisk Anterior Chamber: Bilateral: Normal Appearance Course - Vital Signs Last Recorded V/S: Last Vital Signs Temp 96.0 F L 04/29/21 18:48 Pulse 94 04/29/21 18:48 Resp 16 04/29/21 18:48 BP 119/90 04/29/21 18:48 Pulse Ox 94 L 04/29/21 18:48 - Orders/Labs/Meds Meds: Medications Discontinued Medications Generic Name Dose Route Start Last Admin Trade Name Freq PRN Reason Stop Dose Admin Proparacaine HCl 1 ml 04/29/21 18:59 Proparacaine 0.5% Ophth Soln 15 Ml Bottle EYEBOTH 04/29/21 19:00 NOW STA Proparacaine HCl Confirm 04/29/21 19:02 Proparacaine 0.5% Ophth Soln 15 Ml Bottle Administered 04/29/21 19:03 Dose 15 ml .ROUTE .STK-MED ONE Departure - Departure Time of Disposition: 19:19 Disposition: Home, Self-Care 01 Condition: Fair Clinical Impression: Foreign body of left eye Qualifiers: Encounter type: initial encounter Qualified Code(s): T15.92XA - Foreign body on external eye, part unspecified, left eye, initial encounter - Discharge Information Instructions: Eye Foreign Body, [id number] Referrals: PCP,None [Primary Care Provider] - Additional Instructions: Please continue to use the antibiotic eyedrops, use Tylenol or Motrin as needed for pain control, please follow-up with your eye care provider tomorrow Sepsis Event Note (ED) - Evaluation Sepsis Screening Result: No Definite Risk - Focused Exam Vital Signs: Vital Signs Temp Pulse Resp BP Pulse Ox 04/29/21 18:48 96.0 F L 94 16 119/90 94 L 04/29/21 18:42 96.0 F L 94 16 119/90 94 L - Assessment/Plan Plan: Assessment Acuity = acute Site and laterality = foreign body left eye Etiology = probable metal flake Manifestations = none Location of injury = Home Lab values = none Plan He states his tetanus is up-to-date he is placed on gentamicin ophthalmic drops he will follow-up with his eye care provider tomorrow This note was dictated using [employer] voice recognition software please call with any questions on syntax or grammar.
[2021-04-29] MEDS: Proparacaine 0.5% Ophth Soln 15 ML Bottle ONE (19:54)
== END 2021-04-29 19:39 | disposition home or self-care (01) ==
LOC: JP.ED 18:18
DX: T15.92XA Foreign body on external eye, part unspecified, left eye, initial encounter (principal); J45.909 Unspecified asthma, uncomplicated; Z79.899 Other long term (current) drug therapy; K21.9 Gastro-esophageal reflux disease without esophagitis; E66.9 Obesity, unspecified; Z68.30 Body mass index [BMI] 30.0-30.9, adult; Z72.0 Tobacco use
CPT/HCPCS: 99283; A9270

== ENCOUNTER 2021-04-30 10:00 | Emergency (ER) | payer MEDICAID ==
[2021-04-30 11:05] VITALS: BP 132/86; PULSE 98
== END 2021-04-30 11:26 | disposition left against medical advice (07) ==
LOC: JP.ED 10:00
DX: Z53.21 Procedure and treatment not carried out due to patient leaving prior to being seen by health care provider (principal)

== ENCOUNTER 2021-05-01 06:24 | Emergency (ER) | payer MEDICAID ==
[2021-05-01 06:36] VITALS: BP 135/96; PULSE 100
[2021-05-01] MEDS ORDERED: Proparacaine 0.5% Ophth Soln 15 ML Bottle EYEBOTH ONE (07:57)
--- NOTE | 2021-05-01 08:04 | EDM.PDOC ---
ED HPI GENERAL MEDICAL PROBLEM - General Chief Complaint: Eye Problems Stated Complaint: SOMTHING IN EYE Time Seen by Provider: 05/01/21 07:10 Source of Information: Reports: Patient History Limitations: Reports: No Limitations - History of Present Illness INITIAL COMMENTS - FREE TEXT/NARRATIVE: 40-year-old male with foreign body sensation, redness, and pain in both eyes, starting in the left eye and now working over into the right eye. He has been seen in the emergency room 3 times over the past 3 days. It started with a foreign body sensation in his left eye, that has been looked at twice and now he has pain and irritation in the right eye. 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 He has started develop some mucus and stranding. Moderate photophobia. Onset: Sudden Duration: Day(s): (Symptoms for 3 days) Associated Symptoms: Reports: No Other Symptoms Right Eye Pain Score (Numeric/FACES): 11 - Related Data Allergies Allergy/AdvReac Type Severity Reaction Status Date / Time No Known Allergies Allergy Verified 05/01/21 06:33 Home Meds: Home Meds Omeprazole Magnesium 20 mg PO DAILY 12/01/20 [History] Albuterol [Proventil HFA] 2 puff IH ASDIRECTED PRN 12/03/20 [History] Gentamicin [Gentak 0.3% Ophth Oint] 1 applic EYELF QID 05/01/21 [History] Past Medical History HEENT History: Reports: Allergic Rhinitis Other HEENT History: hx ear infections recent tooth pain Respiratory History: Reports: Asthma Gastrointestinal History: Reports: GERD, Hemorrhoids Genitourinary History: Reports: Renal Calculus Musculoskeletal History: Reports: Back Pain, Chronic, Fracture Other Musculoskeletal History: r wrist fx Neurological History: Reports: Migraines Psychiatric History: Reports: Anxiety Endocrine/Metabolic History: Reports: Obesity/BMI 30+ Dermatologic History: Reports: Cellulitis, Other (See Below) Other Dermatologic History: MRSA from cellulitis - Infectious Disease History Infectious Disease History: Reports: Chicken Pox - Past Surgical History HEENT Surgical History: Reports: None Respiratory Surgical History: Reports: None GI Surgical History: Reports: Cholecystectomy, Hernia, Inguinal Endocrine Surgical History: Reports: None Neurological Surgical History: Reports: None Musculoskeletal Surgical History: Reports: None Dermatological Surgical History: Reports: None Social & Family History - Tobacco Use Tobacco Use Status *Q: Current Every Day Tobacco User Years of Tobacco use: 20 Packs/Tins Daily: 0.5 - Caffeine Use Caffeine Use: Reports: Soda - Recreational Drug Use Recreational Drug Use: Yes Recreational Drug Type: Reports: Marijuana/Hashish Recreational Drug Use Frequency: Daily - Living Situation & Occupation Living situation: Reports: Single (lives in [facility] apartments across from the hospital with a roommate. has two children.) ED ROS GENERAL - Review of Systems Review Of Systems: See Below Constitutional: Denies: Fever, Chills HEENT: Reports: Other (Significant photophobia and bilateral foreign body sensation). Denies: Vision Change Respiratory: Reports: No Symptoms Cardiovascular: Reports: No Symptoms Skin: Reports: No Symptoms Neurological: Denies: Headache ED EXAM GENERAL W FULL EYE - Physical Exam Exam: See Below Exam Limited By: No Limitations General Appearance: Alert, No Apparent Distress (Looks uncomfortable but not distressed) Eyelids: Bilateral: Edema, Erythema Conjunctiva & Sclera: Bilateral: Conjunctival Edema, Injected Cornea Exam: Right: Corneal Abrasion Extraocular Movements: Bilateral: Intact Pupils: Normal Accommodation Head: Atraumatic Respiratory/Chest: No Respiratory Distress Psychiatric: Anxious Skin Exam: Warm, Dry Course - Vital Signs Last Recorded V/S: Last Vital Signs Temp 97.9 F 05/01/21 06:36 Pulse 100 05/01/21 06:36 Resp 16 05/01/21 06:36 BP 135/96 H 05/01/21 06:36 Pulse Ox 100 05/01/21 06:36 - Orders/Labs/Meds Meds: Medications Discontinued Medications Generic Name Dose Route Start Last Admin Trade Name Radha PRN Reason Stop Dose Admin Proparacaine HCl 1 ml 05/01/21 07:57 05/01/21 08:11 Proparacaine 0.5% Ophth Soln 15 Ml Bottle EYEBOTH 05/01/21 07:58 1 ml ONETIME ONE Administration - Re-Assessments/Exams Free Text/Narrative Re-Assessment/Exam: 05/01/21 09:06 After proparacaine anesthesia, both eyes were examined with the slit lamp before and after fluorescein staining. Other than diffuse edema and erythema and injection of the conjunctiva and eyelids, a small corneal abrasion at 6:00 on the right cornea was seen but no other foreign body or evidence of trauma was seen. 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 Departure - Departure Time of Disposition: 08:46 Disposition: Home, Self-Care 01 Clinical Impression: Conjunctivitis Qualifiers: Conjunctivitis type: acute Acute conjunctivitis type: unspecified Laterality: bilateral Qualified Code(s): H10.33 - Unspecified acute conjunctivitis, bilateral - Discharge Information Instructions: Eye Foreign Body, [id number] Referrals: PCP,None [Primary Care Provider] - Forms: ED Department Discharge Care Plan Goals: Go over to the [place] [facility] and they will work you in as soon as possible. Sepsis Event Note (ED) - Evaluation Sepsis Screening Result: No Definite Risk - Focused Exam Vital Signs: Vital Signs Temp Pulse Resp BP Pulse Ox 05/01/21 06:36 97.9 F 100 16 135/96 H 100 05/01/21 06:34 97.9 F 100 16 135/96 H 100
== END 2021-05-01 08:47 | disposition home or self-care (01) ==
LOC: JP.ED 06:24
DX: H10.33 Unspecified acute conjunctivitis, bilateral (principal); K21.9 Gastro-esophageal reflux disease without esophagitis; E66.9 Obesity, unspecified; Z68.31 Body mass index [BMI] 31.0-31.9, adult; Z72.0 Tobacco use; Z79.899 Other long term (current) drug therapy
CPT/HCPCS: 99283; A9270

== ENCOUNTER 2022-02-18 09:15 | Emergency (ER) | payer MEDICAID | END 2022-02-18 10:05 | disposition left against medical advice (07) | LOC: JP.ED 09:15 | DX: Z53.21 Procedure and treatment not carried out due to patient leaving prior to being seen by health care provider (principal) ==

== ENCOUNTER 2022-03-04 21:56 | Emergency (ER) | payer OTHER, MEDICAID ==
[2022-03-04] MEDS ORDERED: Sodium Chloride 0.9% 10 ML Syringe FLUSH PRN (22:11)
[2022-03-04] MEDS ORDERED: Ketorolac 30 MG/ML SDV IVPUSH ONE (22:12)
[2022-03-04 22:33] VITALS: BP 145/97; PULSE 99
== END 2022-03-04 22:20 | disposition left against medical advice (07) ==
LOC: JP.ED 21:56
DX: S29.8XXA Other specified injuries of thorax, initial encounter (principal); K21.9 Gastro-esophageal reflux disease without esophagitis; E66.9 Obesity, unspecified; Z68.32 Body mass index [BMI] 32.0-32.9, adult; Z79.899 Other long term (current) drug therapy; V19.9XXA Pedal cyclist (driver) (passenger) injured in unspecified traffic accident, initial encounter
CPT/HCPCS: 99282; 99283-25

== ENCOUNTER 2022-03-08 02:10 | Emergency (ER) | payer OTHER, MEDICAID ==
[2022-03-08 02:37] VITALS: BP 139/86; PULSE 91
[2022-03-08] MEDS ORDERED: Ketorolac 30 MG/ML SDV IM ONE (02:39)
== END 2022-03-08 03:35 | disposition home or self-care (01) ==
LOC: JP.ED 02:10
DX: S20.212A Contusion of left front wall of thorax, initial encounter (principal); K59.00 Constipation, unspecified; K21.9 Gastro-esophageal reflux disease without esophagitis; E66.9 Obesity, unspecified; F17.210 Nicotine dependence, cigarettes, uncomplicated; Z68.32 Body mass index [BMI] 32.0-32.9, adult; Z79.899 Other long term (current) drug therapy; V87.8XXA Person injured in other specified noncollision transport accidents involving motor vehicle (traffic), initial encounter
CPT/HCPCS: 71101-26-LT; 71101-LT; 74018; 74018-26; 99282; 99284

== ENCOUNTER 2023-05-10 16:20 | Emergency (ER) | payer MEDICAID ==
[2023-05-10 16:55] VITALS: BP 151/98; PULSE 126
[2023-05-10] MEDS ORDERED: Bacitracin Oint 1 GM U/D Packet TOP ONE (17:17)
== END 2023-05-10 17:29 | disposition home or self-care (01) ==
LOC: JP.ED 16:20
DX: S61.411A Laceration without foreign body of right hand, initial encounter (principal); J45.909 Unspecified asthma, uncomplicated; K21.9 Gastro-esophageal reflux disease without esophagitis; E66.9 Obesity, unspecified; F17.210 Nicotine dependence, cigarettes, uncomplicated; Z68.31 Body mass index [BMI] 31.0-31.9, adult; Z79.899 Other long term (current) drug therapy; W26.8XXA Contact with other sharp object(s), not elsewhere classified, initial encounter
CPT/HCPCS: 12002; 99282

== ENCOUNTER 2023-10-21 22:34 | Emergency (ER) | payer MEDICAID, OTHER ==
[2023-10-21 22:54] LABS: BASOPHILS ABSOLUTE AUTO 0.04 K/uL (0.00-0.10); BASOPHILS PERCENT AUTO 0.5 % (0.1-1.3); EOSINOPHILS ABSOLUTE AUTO 0.12 K/uL (0.00-0.40); EOSINOPHILS PERCENT AUTO 1.5 % (0.0-5.4); HEMATOCRIT 47.9 % (38.4-49.7); HEMOGLOBIN 17.3 g/dL (12.9-16.9); IMMATURE GRAN ABSOLUTE AUTO 0.03 K/uL (0.00-0.23); IMMATURE GRAN PERCENT AUTO 0.4 % (0.0-0.7); LYMPHOCYTES ABSOLUTE AUTO 3.16 K/uL (0.8-3.3); LYMPHOCYTES PERCENT AUTO 38.5 % (11.4-47.7); MEAN CORPUSCULAR HEMOGLOBIN 30.4 pg (31.6-35.5); MEAN CORPUSCULAR HGB CONC 36.1 g/dL (31.6-35.5); MONOCYTES ABSOLUTE AUTO 0.82 K/uL (0.20-0.90); NEUTROPHILS ABSOLUTE AUTO 4.04 K/uL (1.0-7.6); NEUTROPHILS PERCENT AUTO 49.1 % (40.0-78.1); PLATELET COUNT,PLT 296 K/uL (130-375); WHITE BLOOD CELL COUNT,WBC 8.2 K/uL (3.2-11.0)
[2023-10-21] MEDS ORDERED: Nitroglycerin 0.4 MG Tab.SL SL ONE (23:00)
[2023-10-21 23:12] LABS: ALANINE AMINOTRANSFERASE,ALT 44 U/L (12-78); ALBUMIN 4.2 g/dL (3.4-5.0); ALKALINE PHOSPHATASE 98 U/L (46-116); ASPARTATE AMNIOTRANSFERASE,AST 24 U/L (15-37); BILIRUBIN TOTAL 0.6 mg/dL (0.2-1.0); BLOOD UREA NITROGEN,BUN 18 mg/dL (7-18); CALCIUM 9.1 mg/dL (8.5-10.1); CARBON DIOXIDE,CO2 28 mmol/L (21-32); CHLORIDE,CL 101 mmol/L (100-108); CREATININE 1.1 mg/dL (0.8-1.3); EST CRCL DRUG DOSING (CG) 86.06 mL/min; ESTIMATED GFR 86 mL/min (>60); GLUCOSE RANDOM 96 mg/dL (74-106); POTASSIUM,K 3.8 mmol/L (3.6-5.2); PROTEIN TOTAL,TP 8.4 g/dL (6.4-8.2); SODIUM,NA 139 mmol/L (140-148)
[2023-10-21] MEDS ORDERED: Alum Hydrox/Mag Hydrox/Simeth 15 ML, Lidocaine 2% 15 ML PO ONE ×2 (23:12)
[2023-10-21 23:13] LABS: ANION GAP 13.8 mmol/L (5.0-14.0); C-REACTIVE PROTEIN < 0.50 mg/dL (<0.50)
[2023-10-21] MEDS ORDERED: Ketorolac 15 MG/ML SDV IVPUSH ONE (23:38)
[2023-10-21] MEDS ORDERED: Sodium Chloride 0.9% 1,000 ML IV ONE (23:42)
[2023-10-22] MEDS ORDERED: Pantoprazole 40 MG Vial IVPUSH ONE (00:51)
[2023-10-22] MEDS ORDERED: Dicyclomine 10 MG Cap PO ONE (00:59)
[2023-10-22 02:36] VITALS: BP 97/51; PULSE 62
== END 2023-10-22 03:09 ==
LOC: JP.ED 22:34
DX: R07.89 Other chest pain (principal); J45.909 Unspecified asthma, uncomplicated; K21.9 Gastro-esophageal reflux disease without esophagitis; E66.9 Obesity, unspecified; F17.210 Nicotine dependence, cigarettes, uncomplicated; Z79.899 Other long term (current) drug therapy; Z90.49 Acquired absence of other specified parts of digestive tract; Z68.37 Body mass index [BMI] 37.0-37.9, adult
CPT/HCPCS: 36415; 80053; 83690; 84484; 85025; 85379; 86140; 93005; 96361; 96374; 96375; 99285; A9270; C9113; J1885; J7030